=== PATIENT | male | born 1955 | race Caucasian/White ===

== ENCOUNTER → 2017-03-31 | Outpatient (CLI) | payer OTHER ==
[~2017-03-31] VITALS: Ht 177.8 cm; Wt 90.3 kg
[~2017-03-31] MED LIST: ALPR0.25 PO; ALPR1T PO; ASP81TEC PO; ATOR80TA PO; ATOR80TA2 PO; CATHETER FLUSH 10 ML SYR IV PRN; CLOP75TA PO; CLPD75T PO; ENLP2.5T PO; HYDR1TAB PO; METO-333 PO; METO25TA2 PO; OMEG1CAP51 PO; OMG1KC PO; OXYC-197 PO; PNT40TEC PO
== END ==
LOC: CARD 08:15
PROVIDERS: ATTEND Physician Assistant
DX: I25.10 Atherosclerotic heart disease of native coronary artery without angina pectoris (principal); E78.5 Hyperlipidemia, unspecified; I95.89 Other hypotension; I21.21 ST elevation (STEMI) myocardial infarction involving left circumflex coronary artery

== ENCOUNTER → 2017-04-02 | Outpatient (CLI) | payer OTHER ==
[2017-04-02 08:57] VITALS: BP 136/86
--- NOTE | 2017-04-03 06:49 | STRESS TEST ---
DATE OF SERVICE: 04/02/2017 EXERCISE MYOVIEW STRESS TEST REFERRING PHYSICIAN: None. Baseline heart rate is 65, baseline blood pressure 113/82. Baseline EKG is sinus rhythm with no ischemic changes. In summary, the patient was injected with 10.98 mCi of technetium-99 Myoview and the resting images were obtained. Then, the patient started exercising with a baseline heart rate, blood pressure and EKG mentioned above. At 1 minute 9, patient was injected with 29.4 mCi of technetium-99 Myoview. He was able to exercise for a total of 10 minutes on standard Viktor protocol, achieving maximum heart rate of 145 which is 90% of maximum expected heart rate. With peak exercise level, blood pressure was 164/86. EKG was showing minimal nondiagnostic changes. During recovery, heart rate and blood pressure returned to baseline. EKG returned to baseline. The resting and stress images were reviewed and compared in the short axis, horizontal long axis and vertical long axis views. Review of the images showed the resting and stress images were reviewed and compared in the short axis, horizontal long axis, and vertical long axis views. Review of the images showed diaphragmatic attenuation with typical male pattern. No significant ischemia or infarction. SSS is 1, SDS 1, TID value 0.76. On the gated images, the left ventricle appeared to be normal size with normal contractility. Calculated ejection fraction 56%. CONCLUSION: 1. Excellent exercise tolerance a total of 10 minutes on standard Viktor protocol, total of 11.7 METS achieving 90% of maximum expected heart rate. 2. Appropriate heart rate and blood pressure response to exercise returned to baseline during recovery. 3. Minimal nondiagnostic EKG changes with exercise returned to baseline during recovery. 4. Diaphragmatic attenuation with typical male pattern. No significant ischemia or infarction on SPECT images. 5. Normal left ventricular size with normal contractility. Calculated ejection fraction 56%. Job ID: [id number] DocumentID: [id number] Dictated Date: 04/02/2017 11:37:52 Cashier Receptionist Date: 04/02/2017 12:46:59 Dictated By: JHONY CHE MD
== END ==
LOC: CARD 07:28
PROVIDERS: ATTEND Physician Assistant
DX: I25.10 Atherosclerotic heart disease of native coronary artery without angina pectoris (principal); I21.21 ST elevation (STEMI) myocardial infarction involving left circumflex coronary artery; E78.2 Mixed hyperlipidemia; I95.89 Other hypotension
CPT/HCPCS: 78452; 93017

== ENCOUNTER → 2017-11-12 | Outpatient (CLI) | payer OTHER ==
[~2017-11-12] MED LIST changes: -CATHETER FLUSH 10 ML SYR IV PRN
[2017-11-12 09:52] LABS: ALANINE AMINOTRANSFERASE 12 U/L (0-55); ALBUMIN 4.2 GM/DL (3.2-4.5); ALKALINE PHOSPHATASE 70 U/L (40-136); BILIRUBIN,TOTAL 0.8 MG/DL (0.1-1.0); BUN/CREATININE RATIO 14; CALCIUM 9.1 MG/DL (8.5-10.1); CARBON DIOXIDE 24 MMOL/L (21-32); CHLORIDE 109 MMOL/L (98-107); CHOLESTEROL 118 MG/DL (< 200); CREATININE SERUM 1.18 MG/DL (0.60-1.30); GFR ESTIMATED > 60; GLUCOSE 95 MG/DL (70-105); HDL CHOLESTEROL 40 MG/DL (40-60); POTASSIUM 4.2 MMOL/L (3.6-5.0); SODIUM 140 MMOL/L (135-145); TOTAL PROTEIN 6.7 GM/DL (6.4-8.2); TRIGLYCERIDES 87 MG/DL (<150); VLDL CHOLESTEROL 17 MG/DL (5-40)
== END ==
LOC: LAB 09:07
PROVIDERS: ATTEND Internal Medicine Cardiovascular Disease
DX: I25.10 Atherosclerotic heart disease of native coronary artery without angina pectoris (principal); I50.9 Heart failure, unspecified; R09.89 Other specified symptoms and signs involving the circulatory and respiratory systems; R07.89 Other chest pain; R74.8 Abnormal levels of other serum enzymes; E78.2 Mixed hyperlipidemia
CPT/HCPCS: 36415; 80053; 80061

== ENCOUNTER → 2018-03-26 | Outpatient (CLI) | payer OTHER ==
[~2018-03-26] MED LIST changes: -OXYC-197 PO; +OXYC1TAB87 PO
[2018-03-26 15:41] LABS: BASOPHILS % (AUTO) 0 % (0-10); EOSINOPHILS # (AUTO) 0.2 10^3/uL (0.0-0.3); EOSINOPHILS % (AUTO) 3 % (0-10); HEMATOCRIT 45 % (40-54); LYMPHOCYTES # (AUTO) 1.4 X 10^3 (1.0-4.0); LYMPHOCYTES % (AUTO) 20 % (12-44); MEAN CORPUSCULAR HEMOGLOBIN 34 PG (25-34); MEAN CORPUSCULAR HGB CONC 36 G/DL (32-36); MEAN CORPUSCULAR VOLUME 94 FL (80-99); MEAN PLATELET VOLUME 10.8 FL (7.4-10.4); MONOCYTES # (AUTO) 0.7 X 10^3 (0.0-1.0); MONOCYTES % (AUTO) 10 % (0-12); NEUTROPHILS # (AUTO) 4.6 X 10^3 (1.8-7.8); NEUTROPHILS % (AUTO) 66 % (42-75); PLATELET COUNT 160 10^3/uL (130-400); RED BLOOD COUNT 4.78 10^6/uL (4.35-5.85); RED CELL DISTRIBUTION WIDTH 13.2 % (10.0-14.5); WHITE BLOOD COUNT 6.9 10^3/uL (4.3-11.0)
[2018-03-26 16:04] LABS: ALANINE AMINOTRANSFERASE 22 U/L (0-55); ALBUMIN 4.1 GM/DL (3.2-4.5); ALKALINE PHOSPHATASE 78 U/L (40-136); BILIRUBIN,TOTAL 0.5 MG/DL (0.1-1.0); BUN/CREATININE RATIO 11; CALCIUM 9.3 MG/DL (8.5-10.1); CARBON DIOXIDE 23 MMOL/L (21-32); CHLORIDE 111 MMOL/L (98-107); CREATININE SERUM 1.08 MG/DL (0.60-1.30); GFR ESTIMATED > 60; GLUCOSE 84 MG/DL (70-105); POTASSIUM 3.8 MMOL/L (3.6-5.0); SODIUM 141 MMOL/L (135-145); TOTAL PROTEIN 6.8 GM/DL (6.4-8.2)
== END ==
LOC: LAB 15:20
PROVIDERS: ATTEND Internal Medicine Cardiovascular Disease
DX: I25.10 Atherosclerotic heart disease of native coronary artery without angina pectoris (principal); R09.89 Other specified symptoms and signs involving the circulatory and respiratory systems; E78.2 Mixed hyperlipidemia; E66.9 Obesity, unspecified; I21.21 ST elevation (STEMI) myocardial infarction involving left circumflex coronary artery; F17.200 Nicotine dependence, unspecified, uncomplicated
CPT/HCPCS: 36415; 80053; 84443; 85025

== ENCOUNTER → 2018-04-22 | Outpatient (CLI) | payer OTHER | LOC: CARD 08:31 | PROVIDERS: ATTEND Internal Medicine Cardiovascular Disease | DX: I25.10 Atherosclerotic heart disease of native coronary artery without angina pectoris (principal); R09.89 Other specified symptoms and signs involving the circulatory and respiratory systems; E78.2 Mixed hyperlipidemia; I21.21 ST elevation (STEMI) myocardial infarction involving left circumflex coronary artery; F17.200 Nicotine dependence, unspecified, uncomplicated; E66.9 Obesity, unspecified; Z68.28 Body mass index [BMI] 28.0-28.9, adult | CPT/HCPCS: 93306 ==

== ENCOUNTER 2018-05-06 14:35 | Outpatient (CLI) | payer OTHER | END 2018-05-12 15:15 | disposition home or self-care (01) | LOC: SLEEP 14:35 | PROVIDERS: ATTEND Internal Medicine Cardiovascular Disease | DX: G47.33 Obstructive sleep apnea (adult) (pediatric) (principal); G47.10 Hypersomnia, unspecified; R06.83 Snoring; I11.0 Hypertensive heart disease with heart failure; R53.83 Other fatigue; F41.9 Anxiety disorder, unspecified; I95.9 Hypotension, unspecified; I65.23 Occlusion and stenosis of bilateral carotid arteries; I25.2 Old myocardial infarction; I25.10 Atherosclerotic heart disease of native coronary artery without angina pectoris; E78.2 Mixed hyperlipidemia; I50.32 Chronic diastolic (congestive) heart failure; Z87.891 Personal history of nicotine dependence; Z95.5 Presence of coronary angioplasty implant and graft ==

== ENCOUNTER 2018-08-11 20:00 | Outpatient (CLI) | payer OTHER | END 2018-08-12 06:15 | disposition home or self-care (01) | LOC: SLEEP 20:00 | PROVIDERS: ATTEND Nurse Practitioner | DX: G47.33 Obstructive sleep apnea (adult) (pediatric) (principal); R06.83 Snoring | CPT/HCPCS: 95811 ==

== ENCOUNTER 2019-02-03 13:39 | Emergency (ER) | payer OTHER ==
[~2019-02-03] VITALS: Ht 177.8 cm; Wt 98.0 kg
[2019-02-03 14:10] LABS: BASOPHILS % (AUTO) 1 % (0-10); EOSINOPHILS # (AUTO) 0.2 10^3/uL (0.0-0.3); EOSINOPHILS % (AUTO) 4 % (0-10); HEMATOCRIT 48 % (40-54); HEMOGLOBIN 16.6 G/DL (13.3-17.7); LYMPHOCYTES # (AUTO) 1.5 X 10^3 (1.0-4.0); LYMPHOCYTES % (AUTO) 22 % (12-44); MEAN CORPUSCULAR HEMOGLOBIN 34 PG (25-34); MEAN CORPUSCULAR HGB CONC 34 G/DL (32-36); MEAN CORPUSCULAR VOLUME 97 FL (80-99); MEAN PLATELET VOLUME 10.7 FL (7.4-10.4); MONOCYTES # (AUTO) 0.7 X 10^3 (0.0-1.0); MONOCYTES % (AUTO) 11 % (0-12); NEUTROPHILS # (AUTO) 4.1 X 10^3 (1.8-7.8); NEUTROPHILS % (AUTO) 63 % (42-75); PLATELET COUNT 181 10^3/uL (130-400); RED CELL DISTRIBUTION WIDTH 13.5 % (10.0-14.5); WHITE BLOOD COUNT 6.6 10^3/uL (4.3-11.0)
--- NOTE | 2019-02-03 14:11 | ED General ---
General Chief Complaint: General Problems/Pain Stated Complaint: EXHAUSTION Nursing Triage Note: AMBULATORY TO RM 5 WITH MULTIPLE COMPLAINTS. PT REPORTS FEELING IRRITABLE, EXTREME FATIGUE/EXHAUSTION, DIAPHORETIC, INSOMNIA. PT DENIES PAIN AT THIS TIME. PT REPORTS SYMPTOMS HAVE WORSENED TODAY AND WAS SENT TO ED FROM URGENT CARE. Nursing Sepsis Screen: No Definite Risk Source of Information: Patient Exam Limitations: No Limitations History of Present Illness Date Seen by Provider: Feb 03, 2019 Time Seen by Provider: 13:41 Initial Comments Here with fatigue and exhaustion as well as some increased work of breathing with activity. Does report sweating that it's intermittent. He is also irritable. All of these appear normal on over the last month. He went to the urgent care to get further workup and they sent him here due to the shortness of breath and sweating intermittently. Does have cardiac history including acute AR with stent placement. They're concerned about that so sent him here apparently. Denies chest pain. Takes meds as directed. Not currently having symptoms other than irritability. Does have history of anxiety. No history of depression but admits that he has had some depressive symptoms. Also has sleep apnea that does not appear to be well controlled with his CPAP as he is still waking up multiple times nightly. Timing/Duration: Changing Over Time, Other (one year) Severity: Mild, Moderate Associated Systoms: No Chest Pain, No Cough; Diaphoresis; No Fever/Chills; Sandrine ise; No Nausea/Vomiting; Shortness of Air; No Weakness Allergies and Home Medications Allergies Coded Allergies: No Known Drug Allergies (Unverified , 07/02/16) Home Medications Alprazolam 0.25 Mg Tablet, 0.25 MG PO PRN, (Reported) Aspirin 81 Mg Tabec, 81 MG PO DAILY, (Reported) Atorvastatin Calcium 80 Mg Tablet, 80 MG PO HS, (Reported) Clopidogrel Bisulfate 75 Mg Tablet, 75 MG PO DAILY, (Reported) Enalapril Maleate 2.5 Mg Tablet, 2.5 MG PO BID, (Reported) Metoprolol Tartrate 25 Mg Tablet, 12.5 MG PO BID, (Reported) PATIENT TAKES 1/2 TABLET OF 25 MG TABLET TWICE A DAY [place]-3 Fatty Acids/Fish Oil 1 Each Capsule, 3,000 MG PO DAILY, (Reported) Oxycodone HCl/Acetaminophen 1 Each Tablet, 1 EACH PO Q4H PRN for PAIN Prescribed by: NATALIA BATEMAN on 07/05/16 1459 Pantoprazole Sodium 40 Mg Tablet., 40 MG PO DAILY, (Reported) Patient Home Medication List Home Medication List Reviewed: Yes Review of Systems Review of Systems Constitutional: see HPI; No chills, No fever Respiratory: No cough; dyspnea on exertion; No wheezing Cardiovascular: see HPI; No edema, No palpitations Gastrointestinal: no symptoms reported Genitourinary: no symptoms reported Musculoskeletal: no symptoms reported Skin: no symptoms reported Psychiatric/Neurological: See HPI, Anxiety, Depressed All Other Systems Reviewed Negative Unless Noted: Yes Past Nwpnlae-Nudgyj-Ksrjhj Hx Past Med/Social Hx: Reviewed Nursing Past Med/Soc Hx Patient Social History Alcohol Use: Occasionally Uses Recreational Drug Use: No Smoking Status: Current Everyday Smoker Type Used: Cigarettes Former Smoker, Quit: Oct 05, 2013 2nd Hand Smoke Exposure: Yes Recent Foreign Travel: No Contact w/Someone Who Travel: No Recent Infectious Disease Expo: No Recent Hopitalizations: No Physical Abuse: No Sexual Abuse: No Seasonal Allergies Seasonal Allergies: No Past Medical History Surgeries: Yes (INGUINAL Hernia Surgery, CARDIAC STENTS) Respiratory: No Cardiac: Yes Heart Attack, High Cholesterol, Hypertension Neurological: Yes Headaches /Migraines Reproductive Disorders: No Sexually Transmitted Disease: No HIV/AIDS: No Gastrointestinal: Yes (HX HEP A YEARS AGO) Hepatitis Musculoskeletal: No Endocrine: No Loss of Vision: Bilateral Hearing Impairment: Denies Cancer: No Psychosocial: Yes (ONLY HOSPITAL RELATED) Anxiety Integumentary: No Blood Disorders: No Adverse Reaction/Blood Tranf: No Family Medical History Reviewed Nursing Family Hx Physical Exam Vital Signs Vital Signs - First Documented 02/03/19 13:39 Temp 98.0 Pulse 74 Resp 20 B/P (MAP) 141/90 (107) Pulse Ox 97 O2 Delivery Room Air Capillary Refill : Less Than 3 Seconds Height, Weight, BMI Height: 5'10.00" Weight: 216lbs. 0.0oz. [id number]; 28.6 BMI Method:Stated General Appearance: No Apparent Distress, WD/WN HEENT: PERRL/EOMI, Pharynx Normal Neck: Non Tender, Supple Respiratory: Lungs Clear, Normal Breath Sounds Cardiovascular: Regular Rate, Rhythm, No Murmur Gastrointestinal: Non Tender, Soft Back: Normal Inspection, No CVA Tenderness, No Vertebral Tenderness Extremity: Normal Inspection, Normal Range of Motion, Non Tender, No Calf Tenderness Neurologic/Psychiatric: Alert, Oriented x3 Skin: Normal Color, Warm/Dry Progress/Results/Core Measures Suspected Sepsis Recent Fever Within 48 Hours: No Infection Criteria Present: None New/Unexplained Altered Menta: No Sepsis Screen: No Definite Risk SIRS Temperature:98.0 Pulse: 74 Respiratory Rate: 20 Laboratory Tests 02/03/19 13:48: White Blood Count 6.6 Blood Pressure 141 /90 Mean: 107 Laboratory Tests 02/03/19 13:48: Creatinine 1.38H, Platelet Count 181, Total Bilirubin 0.5 Results/Orders Lab Results Laboratory Tests Test 02/03/19 13:48 Range/Units White Blood Count 6.6 4.3-11.0 10^3/uL Red Blood Count 4.96 4.35-5.85 10^6/uL Hemoglobin 16.6 13.3-17.7 G/DL Hematocrit 48 40-54 % Mean Corpuscular Volume 97 80-99 FL Mean Corpuscular Hemoglobin 34 25-34 PG Mean Corpuscular Hemoglobin Concent 34 32-36 G/DL Red Cell Distribution Width 13.5 10.0-14.5 % Platelet Count 181 130-400 10^3/uL Mean Platelet Volume 10.7 H 7.4-10.4 FL Neutrophils (%) (Auto) 63 42-75 % Lymphocytes (%) (Auto) 22 12-44 % Monocytes (%) (Auto) 11 0-12 % Eosinophils (%) (Auto) 4 0-10 % Basophils (%) (Auto) 1 0-10 % Neutrophils # (Auto) 4.1 1.8-7.8 X 10^3 Lymphocytes # (Auto) 1.5 1.0-4.0 X 10^3 Monocytes # (Auto) 0.7 0.0-1.0 X 10^3 Eosinophils # (Auto) 0.2 0.0-0.3 10^3/uL Basophils # (Auto) 0.0 0.0-0.1 10^3/uL D-Dimer 0.96 H 0.00-0.49 UG/ML Sodium Level 142 135-145 MMOL/L Potassium Level 4.3 3.6-5.0 MMOL/L Chloride Level 110 H 98-107 MMOL/L Carbon Dioxide Level 22 21-32 MMOL/L Anion Gap 10 5-14 MMOL/L Blood Urea Nitrogen 12 7-18 MG/DL Creatinine 1.38 H 0.60-1.30 MG/DL Estimat Glomerular Filtration Rate 52 BUN/Creatinine Ratio 9 Glucose Level 88 70-105 MG/DL Calcium Level 9.9 8.5-10.1 MG/DL Corrected Calcium 9.7 8.5-10.1 MG/DL Magnesium Level 2.1 1.8-2.4 MG/DL Total Bilirubin 0.5 0.1-1.0 MG/DL Aspartate Amino Transf (AST/SGOT) 16 5-34 U/L Alanine Aminotransferase (ALT/SGPT) 15 0-55 U/L Alkaline Phosphatase 95 40-136 U/L Troponin I < 0.028 <0.028 NG/ML C-Reactive Protein High Sensitivity 0.13 0.00-0.50 MG/DL Total Protein 7.2 6.4-8.2 GM/DL Albumin 4.2 3.2-4.5 GM/DL Thyroid Stimulating Hormone (TSH) 1.54 0.35-4.94 UIU/ML My Orders Orders - MICHELLE ODEN MD Ed Iv/Invasive Line Start (02/03/19 14:02) Ekg Tracing (02/03/19 14:02) Monitor-Rhythm Ecg Trace Only (02/03/19 14:02) Chest Pa/Lat (2 View) (02/03/19 14:02) Cbc With Automated Diff (02/03/19 14:02) Comprehensive Metabolic Panel (02/03/19 14:02) Hs C Reactive Protein (02/03/19 14:02) Fibrin Degradation Products (02/03/19 14:02) Magnesium (02/03/19 14:02) Thyroid Stimulating Hormone (02/03/19 14:02) Troponin I (02/03/19 14:02) Ed Iv/Invasive Line Start (02/03/19 14:46) Ns Iv 1000 Ml (Sodium Chloride 0.9%) (02/03/19 14:46) Ct Angio Chest W (02/03/19 14:46) Lorazepam Injection (Ativan Injection) (02/03/19 15:00) Iohexol Injection (Omnipaque 350 Mg/Ml 1 (02/03/19 16:00) Received Contrast (Hold Metformin- Contr (02/03/19 16:00) Sodium Chloride Flush (Catheter Flush Sy (02/03/19 16:00) Ns (Ivpb) (Sodium Chloride 0.9% Ivpb Bag (02/03/19 16:00) Hepatitis Panel Acute (02/03/19 16:58) Tick Panel With Lyme Eia (02/03/19 16:58) Medications Given in ED Current Medications Medications Dose Ordered Sig/Thien Route Start Time Stop Time Status Last Admin Dose Admin Lorazepam 0.5 mg ONCE ONCE IVP 02/03/19 15:00 02/03/19 15:01 DC 02/03/19 14:57 0.5 MG Vital Signs/I&O 02/03/19 13:39 Temp 98.0 Pulse 74 Resp 20 B/P (MAP) 141/90 (107) Pulse Ox 97 O2 Delivery Room Air Capillary Refill : Less Than 3 Seconds Blood Pressure Mean: 107 Progress Note : Progress Note Seen and evaluated. IV, labs, EKG and chest x-ray ordered. Monitor patient. D- dimer was elevated . We will get CT angiogram of the chest. 1 L of normal saline IV bolus ordered. Ativan 0.5 mg IV for anxiety. Monitor patient. 1635: I did discuss case with nurse practitioner at [facility] where he is wanting to establish care. We did discuss my concerns related to depression and anxiety and they will assist with managing that. Pending final results of CT. 1703: CT does not show any concerning findings for pulmonary embolism. Patient has concerns about hepatitis and tick born disease. He was told he had hepatitis in the past. We will go ahead and get hepatitis panel as well as take panel. I will send a copy of the chart to the clinic of Dr. Ding/Yoni. Discharged home with return precautions. Patient verbalize understanding instructions and agreement with plan. ECG Initial ECG Impression Date: Feb 03, 2019 Initial ECG Impression Time: 13:41 Initial ECG Rate: 75 Initial ECG Rhythm: Normal Sinus Initial ECG Comparisson: Unchanged Comment Sinus rhythm with normal axis. No evidence of ST elevation AR. Similar to previous of 18 Nov 2013. Interpreted by me. Diagnostic Imaging Diagonstic Imaging: Xray Plain Films/CT/US/NM/MRI: chest Comments NAME: KRISTINE PETIT Noah MED REC#: [id number] PT STATUS: REG ER : 1955 PHYSICIAN: MICHELLE ODEN MD ADMIT DATE: 02/03/19/ER Draft Date of Exam:02/03/19 CHEST PA/LAT (2 VIEW) INDICATION: Extreme fatigue, diaphoresis, insomnia. TIME OF EXAM: 02:24 p.m. COMPARISON: Correlation is made with prior study 11/17/2013. FINDINGS: The heart size is normal. The pulmonary vascularity is unremarkable. The lungs are clear. No infiltrate, effusion or pneumothorax is detected. IMPRESSION: No acute cardiopulmonary process is detected. Dictated on workstation # [id number] Dict: 02/03/19 1433 Trans: 02/03/19 143 [facility] [id number] Interpreted by: WALKER VARGHESE MD Electronically signed by: Sarah Imaging: CT Plain Films/CT/US/NM/MRI: chest Comments NAME: KRISTINE PETIT [facility] REC#: [id number] PT STATUS: REG ER : 1955 PHYSICIAN: MICHELLE ODEN MD ADMIT DATE: 02/03/19/ER Signed Date of Exam:02/03/19 CT ANGIO CHEST W PROCEDURE: CT angiography of the chest with contrast. TECHNIQUE: Multiple contiguous axial images were obtained through the chest after uneventful bolus administration of intravenous contrast. 3D reconstructed CTA MIP acquisitions were also performed. Auto Exposure Controls were utilized during the CT exam to meet ALARA standards for radiation dose reduction. INDICATION: Exhaustion. FINDINGS: No comparison available. There is no pulmonary embolism. Heart size is normal. There is a mild ascending aortic aneurysm measuring 4.2 cm. No axillary, supraclavicular, or mediastinal lymphadenopathy. There is moderate centrilobular and paraseptal emphysema. No edema or pneumonia. No pleural effusion or pneumothorax. No suspicious pulmonary nodules or masses. Limited views of the upper abdomen are unremarkable. There are no suspicious osseous lesions. IMPRESSION: 1. No pulmonary embolism. 2. Mild ascending aortic aneurysm measuring 4.2 cm. Dictated by: Dictated on workstation # [id number] Dict: 02/03/19 1607 Trans: 02/03/19 1657 [id number] Interpreted by: COLLIN GONZALES MD Electronically signed by: COLLIN GONZALES MD 02/03/19 5319 Reviewed: Reviewed by Me Departure Impression Primary Impression: Emphysema of lung Qualified Codes: J43.2 - Centrilobular emphysema Additional Impression: Fatigue Qualified Codes: R53.83 - Other fatigue Disposition: 01 HOME, SELF-CARE Condition: Improved Departure-Patient Inst. Decision time for Depature: 17:06 Referrals: NO,LOCAL PHYSICIAN (PCP/Family) Primary Care Physician Patient Instructions: Fatigue (DC), COPD Including Emphysema (DC) Add. Discharge Instructions: All discharge instructions reviewed with patient and/or family. Voiced understanding. Is very important that he follow back up with the clinic for recheck and further evaluation. The fatigue may be related to anxiety and depression. The shortness of breath may be related to emphysema. Both of these are best cared for with your primary care as well as to establish a regimen that is most effective for you. Your hepatitis panel and tick panel blood tests are pending and will result in for 5 days. The clinic can follow this as well. Return for worse pain, fever, vomiting, weakness, breathing problems or other concerns as needed. Copy Copies To 1: NICOLE DING MD, TIMOTHY D MD Feb 03, 2019 14:10
[2019-02-03 14:21] LABS: ALANINE AMINOTRANSFERASE 15 U/L (0-55); ALBUMIN 4.2 GM/DL (3.2-4.5); ALKALINE PHOSPHATASE 95 U/L (40-136); BILIRUBIN,TOTAL 0.5 MG/DL (0.1-1.0); BUN/CREATININE RATIO 9; CALCIUM 9.9 MG/DL (8.5-10.1); CARBON DIOXIDE 22 MMOL/L (21-32); CHLORIDE 110 MMOL/L (98-107); CREATININE SERUM 1.38 MG/DL (0.60-1.30); GFR ESTIMATED 52; GLUCOSE 88 MG/DL (70-105); MAGNESIUM 2.1 MG/DL (1.8-2.4); POTASSIUM 4.3 MMOL/L (3.6-5.0); SODIUM 142 MMOL/L (135-145); TOTAL PROTEIN 7.2 GM/DL (6.4-8.2)
--- NOTE | 2019-02-03 14:36 | Diagnostic Imaging Report ---
INDICATION: Extreme fatigue, diaphoresis, insomnia. TIME OF EXAM: 02:24 p.m. COMPARISON: Correlation is made with prior study 11/17/2013. FINDINGS: The heart size is normal. The pulmonary vascularity is unremarkable. The lungs are clear. No infiltrate, effusion or pneumothorax is detected. IMPRESSION: No acute cardiopulmonary process is detected. Dictated by: Dictated on workstation # [id number]
[2019-02-03] MEDS ORDERED: NS IV 1000 ML 1,000 ML IV SCH (14:46)
[2019-02-03] MEDS ORDERED: LORazepam INJ 2 MG/ML (ATIVAN) VIAL IVP ONE (15:00)
[2019-02-03] MEDS ORDERED: HOLD METFORMIN - RECEIVED CONTRAST 20 ML VIAL IV SCH (16:00)
[2019-02-03] MEDS ORDERED: IOHEXOL 350 MG/ML 100 ML (OMNIPAQUE 350) VIAL IV ONE (16:00)
[2019-02-03] MEDS ORDERED: CATHETER FLUSH 10 ML SYR IV PRN (16:00)
[2019-02-03] MEDS ORDERED: NS 100 ML (IVPB) BAG IV ONE (16:00)
--- NOTE | 2019-02-03 17:00 | Diagnostic Imaging Report ---
PROCEDURE: CT angiography of the chest with contrast. TECHNIQUE: Multiple contiguous axial images were obtained through the chest after uneventful bolus administration of intravenous contrast. 3D reconstructed CTA MIP acquisitions were also performed. Auto Exposure Controls were utilized during the CT exam to meet ALARA standards for radiation dose reduction. INDICATION: Exhaustion. FINDINGS: No comparison available. There is no pulmonary embolism. Heart size is normal. There is a mild ascending aortic aneurysm measuring 4.2 cm. No axillary, supraclavicular, or mediastinal lymphadenopathy. There is moderate centrilobular and paraseptal emphysema. No edema or pneumonia. No pleural effusion or pneumothorax. No suspicious pulmonary nodules or masses. Limited views of the upper abdomen are unremarkable. There are no suspicious osseous lesions. IMPRESSION: 1. No pulmonary embolism. 2. Mild ascending aortic aneurysm measuring 4.2 cm. Dictated by: Dictated on workstation # [id number]
[2019-02-03 17:21] VITALS: BP 112/89
[2019-02-04 23:22] LABS: HEPATITIS C ANTIBODY C Non-Reactive (Non-Reactive)
== END 2019-02-03 17:21 | disposition home or self-care (01) ==
LOC: EDUNIT# 13:39 → ER 13:41
DX: J43.9 Emphysema, unspecified (principal); I10 Essential (primary) hypertension; I25.2 Old myocardial infarction; E78.00 Pure hypercholesterolemia, unspecified; G43.909 Migraine, unspecified, not intractable, without status migrainosus; F41.9 Anxiety disorder, unspecified; G47.30 Sleep apnea, unspecified; F17.210 Nicotine dependence, cigarettes, uncomplicated; Z79.82 Long term (current) use of aspirin; Z79.02 Long term (current) use of antithrombotics/antiplatelets; Z99.89 Dependence on other enabling machines and devices; Z95.5 Presence of coronary angioplasty implant and graft
CPT/HCPCS: 36415; 71046; 71275; 80053; 80074; 83735; 84443; 84484; 85025; 85379; 86141; 86618; 86666; 86668; 86757; 93005; 93041; 96361; 96374

== ENCOUNTER 2019-03-18 20:54 | Outpatient (CLI) | payer OTHER | END 2019-03-19 06:45 | disposition home or self-care (01) | LOC: SLEEP 20:54 | PROVIDERS: ATTEND Nurse Practitioner | DX: G47.33 Obstructive sleep apnea (adult) (pediatric) (principal); G47.31 Primary central sleep apnea; G47.10 Hypersomnia, unspecified; I10 Essential (primary) hypertension; G47.61 Periodic limb movement disorder | CPT/HCPCS: 95811 ==

== ENCOUNTER → 2019-03-23 | Outpatient (CLI) | payer OTHER ==
[~2019-03-23] MED LIST changes: +RT-ALBUTEROL SULF 2.5 MG/3 ML PRE-MIX VIAL INH ONE
== END ==
LOC: RT 09:40
PROVIDERS: ATTEND Pediatrics
DX: R53.83 Other fatigue (principal)
CPT/HCPCS: 94060; 94640; 94726; 94729

== ENCOUNTER → 2019-09-22 | Outpatient (CLI) | payer OTHER ==
[~2019-09-22] VITALS: Ht 178 cm; Wt 103.0 kg
[~2019-09-22] MED LIST changes: +CATHETER FLUSH 10 ML SYR IV PRN; -RT-ALBUTEROL SULF 2.5 MG/3 ML PRE-MIX VIAL INH ONE
[2019-09-22 08:17] LABS: BILIRUBIN,TOTAL 0.8 MG/DL (0.1-1.0); CREATININE SERUM 1.25 MG/DL (0.60-1.30); POTASSIUM 3.9 MMOL/L (3.6-5.0)
--- NOTE | 2019-09-22 14:56 | STRESS TEST ---
DATE OF SERVICE: 09/22/2019 EXERCISE MYOVIEW STRESS TEST REFERRING PHYSICIAN: Dr. Rick Vallejo. Baseline heart rate is 61, baseline blood pressure is 127/94. Baseline EKG is sinus rhythm with no ischemic changes. In summary, the patient started exercising with a baseline heart rate, blood pressure and EKG mentioned above. He was able to exercise for a total of 8 minutes 50 seconds on standard Viktor protocol. With peak exercise level, EKG was showing minimal nondiagnostic changes. During recovery, heart rate and blood pressure returned to baseline. Occasional PVC was noted during recovery. Peak heart rate was 143, blood pressure 204/91. The patient was injected resting and stress dose of Lexiscan. The images were acquired and reviewed, there is typical male pattern, decreased uptake at the inferior wall with subtle reversibility. SSS is 4, SDS 3, TID value 0.83. On the gated images, the left ventricle appeared to be normal size with normal contractility. Calculated ejection fraction 60%. CONCLUSION: 1. Good exercise tolerance, a total of 8 minutes 50 seconds on standard Viktor protocol, total of 10.3 METS achieving 90% of maximum expected heart rate. 2. Hypertensive response to exercise with peak blood pressure 204/91, returned to baseline during recovery. 3. Occasional PVCs noted during recovery. 4. No ischemia or infarction on SPECT images, typical male pattern with diaphragmatic attenuation. 5. Normal left ventricular size with normal contractility. Calculated ejection fraction 50%. Job ID: [id number] DocumentID: [id number] Dictated Date: 09/22/2019 14:21:58 Director Sanitation Bureau Date: 09/22/2019 14:55:57 Dictated By: JHONY CHE MD
== END ==
LOC: CARD 07:14
PROVIDERS: ATTEND Internal Medicine Cardiovascular Disease
DX: I25.10 Atherosclerotic heart disease of native coronary artery without angina pectoris (principal); E78.2 Mixed hyperlipidemia; R09.89 Other specified symptoms and signs involving the circulatory and respiratory systems; I08.1 Rheumatic disorders of both mitral and tricuspid valves
CPT/HCPCS: 36415; 78452; 80053; 80061; 93017

== ENCOUNTER → 2021-07-16 | Outpatient (CLI) | payer OTHER ==
[~2021-07-16] MED LIST changes: -CATHETER FLUSH 10 ML SYR IV PRN
[2021-07-16 11:02] LABS: BASOPHILS # (AUTO) 0.1 10^3/uL (0.0-0.1); BASOPHILS % (AUTO) 1 % (0-10); EOSINOPHILS # (AUTO) 0.2 10^3/uL (0.0-0.3); EOSINOPHILS % (AUTO) 2 % (0-10); HEMATOCRIT 48 % (40-54); HEMOGLOBIN 16.6 g/dL (13.3-17.7); LYMPHOCYTES # (AUTO) 1.6 10^3/uL (1.0-4.0); LYMPHOCYTES % (AUTO) 16 % (12-44); MEAN CORPUSCULAR HEMOGLOBIN 34 pg (25-34); MEAN CORPUSCULAR HGB CONC 35 g/dL (32-36); MEAN CORPUSCULAR VOLUME 98 fL (80-99); MEAN PLATELET VOLUME 10.4 fL (9.0-12.2); MONOCYTES # (AUTO) 0.9 10^3/uL (0.0-1.0); MONOCYTES % (AUTO) 9 % (0-12); NEUTROPHILS # (AUTO) 6.9 10^3/uL (1.8-7.8); NEUTROPHILS % (AUTO) 72 % (42-75); PLATELET COUNT 221 10^3/uL (130-400); WHITE BLOOD COUNT 9.6 10^3/uL (4.3-11.0)
[2021-07-16 11:31] LABS: BILIRUBIN,TOTAL 0.5 MG/DL (0.1-1.0); CALCIUM 9.3 MG/DL (8.5-10.1); CREATININE SERUM 0.97 MG/DL (0.60-1.30); POTASSIUM 4.1 MMOL/L (3.6-5.0); TOTAL PROTEIN 6.9 GM/DL (6.4-8.2)
[2021-07-16 11:52] LABS: FREE T4 (FREE THYROXINE) 0.93 NG/DL (0.70-1.48)
== END ==
LOC: LAB 10:03
PROVIDERS: ATTEND Internal Medicine
DX: Z00.00 Encounter for general adult medical examination without abnormal findings (principal); Z13.6 Encounter for screening for cardiovascular disorders; E03.9 Hypothyroidism, unspecified
CPT/HCPCS: 36415; 80053; 80061; 84439; 84443; 85025

== ENCOUNTER → 2022-01-11 | Outpatient (CLI) | payer OTHER ==
[2022-01-11 10:13] LABS: BILIRUBIN,TOTAL 0.5 MG/DL (0.1-1.0); CALCIUM 9.1 MG/DL (8.5-10.1); CREATININE SERUM 1.14 MG/DL (0.60-1.30); POTASSIUM 3.7 MMOL/L (3.6-5.0); TOTAL PROTEIN 6.6 GM/DL (6.4-8.2)
[2022-01-11 10:37] LABS: FREE T4 (FREE THYROXINE) 0.99 NG/DL (0.70-1.48)
== END ==
LOC: LAB 09:27
PROVIDERS: ATTEND Internal Medicine
DX: Z13.6 Encounter for screening for cardiovascular disorders (principal); E03.9 Hypothyroidism, unspecified; I10 Essential (primary) hypertension
CPT/HCPCS: 36415; 80053; 82465; 84439; 84443; 84478

== ENCOUNTER 2022-05-15 08:52 | Outpatient (CLI) | payer OTHER ==
[~2022-05-15] VITALS: Ht 177.8 cm; Wt 93.6 kg
[2022-05-15] MEDS ORDERED: MELO10CA3 PO (09:47)
[2022-05-15] MEDS ORDERED: ATOR20TA66 PO (09:47)
[2022-05-15] MEDS ORDERED: AMT10T PO (09:47)
[2022-05-15] MEDS ORDERED: ENLP2.5T PO (09:47)
[2022-05-15] MEDS ORDERED: ALPR0.254 PO (09:47)
[2022-05-15] MEDS ORDERED: METO-333 PO (09:47)
[2022-05-15] MEDS ORDERED: OMEP20CA18 PO (09:47)
[2022-05-15] MEDS ORDERED: ASPI-999 PO (09:47)
[2022-05-20] MEDS ORDERED: SUCR1TAB36 PO (11:06)
== END 2022-05-15 09:49 | disposition home or self-care (01) ==
LOC: PREOP 08:52
PROVIDERS: ATTEND Surgery
DX: Z01.818 Encounter for other preprocedural examination (principal)

== ENCOUNTER 2022-05-20 09:05 | Day surgery (SDC) | payer OTHER, MEDICARE ==
[~2022-05-20] VITALS: Ht 177.8 cm; Wt 93.6 kg
[~2022-05-20 09:05] MED LIST changes: +ALPR0.254 PO; +AMT10T PO; +ASPI-999 PO; +ATOR20TA66 PO; +MELO10CA3 PO; +OMEP20CA18 PO
[2022-05-20] MEDS ORDERED: LACTATED RINGERS 1,000 ML IV STA (09:11)
[2022-05-20] MEDS ORDERED: HURRICAINE EXT TUBE (BENZOCAINE) ONE (09:12)
[2022-05-20] MEDS ORDERED: LACTATED RINGERS 1,000 ML IV ONE (09:12)
[2022-05-20] MEDS ORDERED: HURRICAINE EXT TUBE (BENZOCAINE) XX PRN (09:15)
--- NOTE | 2022-05-20 09:21 | Progress Note-Pre Operative ---
Pre-Operative Progress Note Date of Available H&P: May 14, 2022 Date H&P Reviewed: May 20, 2022 Time H&P Reviewed: 09:19 History & Physical: H&P Reviewed, Patient Examed, No changes noted Pre-Operative Diagnosis: Dysphagia, Screening ROBERT NOYOLA DO May 20, 2022 09:21
[2022-05-20 09:30] VITALS: BP 133/95
[2022-05-20] MEDS ORDERED: MIDAZOLAM 2 MG/2 ML (VERSED) VIAL ONE (10:08)
[2022-05-20] MEDS ORDERED: PROPOFOL INJECTION 50 ML IV ONE (10:08)
[2022-05-20 10:52] VITALS: BP 115/81
--- NOTE | 2022-05-20 10:55 | Anesthesia-General Post-Op ---
MAC Patient Condition Mental Status/LOC: Same as Preop Cardiovascular: Satisfactory Nausea/Vomiting: Absent Respiratory: Satisfactory Pain: Controlled Complications: Absent Post Op Complications Complications None Follow Up Care/Instructions Patient Instructions None needed. Anesthesiology Discharge Order Discharge Order Patient is doing well, no complaints, stable vital signs, no apparent adverse anesthesia problems. No complications reported per nursing. KEVEN CIFUENTES CRNA May 20, 2022 10:55
[2022-05-20 10:57] VITALS: BP 132/88
[2022-05-20 11:05] VITALS: BP 132/88
--- NOTE | 2022-05-20 11:05 | Progress Note-Post Operative ---
Post-Operative Progess Note Surgeon (s)/Jewel Sorter (s) Surgeon ROBERT NOYOLA DO Jewel Sorter: Renetta Paiz, MSIII Pre-Operative Diagnosis Dysphagia, Screening Post-Operative Diagnosis Esophageal stricture Montejo's esophagus hiatal hernia gastritis Polyp diverticula int hemorrhoids Procedure & Operative Findings Date of Procedure 05/20/22 Procedure Performed/Findings EGD with biopsy Colonoscopy with snare polypectomy PROCEDURE NOTE: After informed consent was obtained, the patient was brought to the endoscopy suite, placed in bed in left lateral decubitus position. He was administered IV sedation by the EXTRA HAND who then monitored vitals the entire time, heart rate, blood pressure and pulse ox and the scope was inserted down the mouth through the esophagus into the stomach. On the way down, noted some mild esophagitis, took a picture and then met some resistance as I was trying to push into the stomach. It popped in and pt immediately started coughing, pushed past the antrum and into the duodenum. Duodenum looked looked mildly inflamed and I saw a number of polyps. Pulled back and did a biopsy of the antrum, then retroflexed the scope and saw a hiatal hernia, took a picture of this. Then pulled the scope into the GE junction, took another picture of the hiatal hernia and then did a biopsy of the GE junction and two biopsies of the lower esophagus. It appeared inflamed and strictured, really didn't see a mass. Pushed the scope back into the stomach, suctioned all the air out of the stomach. At this point pulled the scope up the esophagus and out of the mouth. Switched camera, switched gloves, went down below and started the colonoscopy. Pushed all the way into about 140 cm to get all the way to cecum; on the way in noted diverticula. Once in the cecum took a picture of the appendiceal orifice, noted the ileocecal valve and then slowly withdrew the scope. Insufflating to look circumferentially at the plascencia starting in the cecum, up the ascending colon and found a polyp. Did a snare polypectomy to remove the polyp and then continued to the hepatic flexure. Then down the transverse colon to the splenic flexure, into the descending colon and down into the sigmoid. Found a large polyp here and removed it at the base of the stalk with snare polypectomy. Finally into the rectum, retroflexed in the rectal vault, saw some minimal internal hemorrhoids and took a picture of them. The patient tolerated the procedure and he recovered in the endoscopy suite. Recommended for repeat colonoscopy in 1 year because of the size of the polyp. Anesthesia Type IV sedation by EXTRA HAND Estimated Blood Loss Estimated blood loss (mL): scant Specimens/Packing Specimens Removed antral bx GE jxn bx lower esophagus bx asc colon polyp sigmoid polyp ROBERT NOYOLA DO May 20, 2022 11:05
[2022-05-20] MEDS ORDERED: SUCR1TAB36 PO (11:06)
--- NOTE | 2022-05-20 11:07 | Endoscopy Discharge Instruct ---
Endo Procedure/Findings Findings 1.: Gastritis, Montejo's Esophagus 2.: Hiatal Hernia, Other Findings (Esophageal stricture) 3.: Polyp 4.: Diverticulosis, Internal Hemorrhoids Discharge Instructions - Activity: You might feel a little sleepy until tomorrow. This is due to the medicine you received to relax you. Until tomorrow, you should: NOT drive a car, operate machinery or power tools. NOT drink any alcoholic beverages. NOT make any important decisions or sign importortant papers. Do not return to work until tomorrow, unless otherwise instructed. Resume previous activities tomorrow. Diet: Start by taking liquids. If you tolerate liquids, advance to solid food. 1.: Colonoscopy in 1 year 2.: EGD in 6-8 weeks Notify Physician - If you experience excessive bleeding, unusual abdominal pain, fever, or chest pain, contact your doctor immediately. ROBERT NOYOLA DO May 20, 2022 11:07
[2022-05-20 11:35] VITALS: BP 119/87
[2022-05-20 11:45] VITALS: BP 119/87
--- NOTE | 2022-05-20 13:12 | Diagnostic Imaging Report ---
INDICATION: Cough. COMPARISON: 11/17/2013. FINDINGS: The heart size, mediastinal configuration, and pulmonary vascularity are within normal limits. There is no pleural effusion, pneumothorax, or pneumonia. The osseous structures are unremarkable. IMPRESSION: No acute cardiopulmonary abnormality. Dictated by: Dictated on workstation # [id number]
== END 2022-05-20 11:50 | disposition home or self-care (01) ==
LOC: ENDO 09:05
PROVIDERS: ATTEND Surgery
DX: Z12.11 Encounter for screening for malignant neoplasm of colon (principal); C16.0 Malignant neoplasm of cardia; K22.2 Esophageal obstruction; K22.70 Barrett's esophagus without dysplasia; K44.9 Diaphragmatic hernia without obstruction or gangrene; K57.30 Diverticulosis of large intestine without perforation or abscess without bleeding; K64.8 Other hemorrhoids; K29.50 Unspecified chronic gastritis without bleeding; D12.2 Benign neoplasm of ascending colon; D12.5 Benign neoplasm of sigmoid colon; Z87.891 Personal history of nicotine dependence; E66.9 Obesity, unspecified; Z68.29 Body mass index [BMI] 29.0-29.9, adult
CPT/HCPCS: 71045

== ENCOUNTER 2022-05-28 15:16 | Outpatient (RCR) | payer OTHER, MEDICARE ==
[~2022-05-28 15:16] MED LIST changes: +SUCR1TAB36 PO
[2022-05-28 15:58] LABS: BASOPHILS # (AUTO) 0.1 10^3/uL (0.0-0.1); BASOPHILS % (AUTO) 1 % (0-10); EOSINOPHILS # (AUTO) 1.4 10^3/uL (0.0-0.3); EOSINOPHILS % (AUTO) 7 % (0-10); HEMATOCRIT 46 % (40-54); HEMOGLOBIN 15.8 g/dL (13.3-17.7); LYMPHOCYTES # (AUTO) 1.5 10^3/uL (1.0-4.0); LYMPHOCYTES % (AUTO) 8 % (12-44); MEAN CORPUSCULAR HEMOGLOBIN 35 pg (25-34); MEAN CORPUSCULAR HGB CONC 35 g/dL (32-36); MEAN CORPUSCULAR VOLUME 100 fL (80-99); MEAN PLATELET VOLUME 10.8 fL (9.0-12.2); MONOCYTES # (AUTO) 1.2 10^3/uL (0.0-1.0); MONOCYTES % (AUTO) 6 % (0-12); NEUTROPHILS # (AUTO) 15.2 10^3/uL (1.8-7.8); NEUTROPHILS % (AUTO) 78 % (42-75); PLATELET COUNT 239 10^3/uL (130-400); WHITE BLOOD COUNT 19.5 10^3/uL (4.3-11.0)
[2022-05-28 16:21] LABS: BILIRUBIN,TOTAL 0.4 MG/DL (0.1-1.0); CALCIUM 9.7 MG/DL (8.5-10.1); CREATININE SERUM 0.98 MG/DL (0.60-1.30); POTASSIUM 3.8 MMOL/L (3.6-5.0); TOTAL PROTEIN 7.3 GM/DL (6.4-8.2)
== END 2022-06-05 | disposition home or self-care (01) ==
LOC: ONC 15:16
PROVIDERS: ATTEND Internal Medicine Hematology & Oncology
DX: C16.0 Malignant neoplasm of cardia (principal); I50.22 Chronic systolic (congestive) heart failure; I25.10 Atherosclerotic heart disease of native coronary artery without angina pectoris; E78.2 Mixed hyperlipidemia; E66.9 Obesity, unspecified
CPT/HCPCS: 80053; 85025; G0463; 36415; 99204

== ENCOUNTER → 2022-06-05 | Outpatient (CLI) | payer OTHER, MEDICARE ==
[~2022-06-05] MED LIST changes: +CATHETER FLUSH 10 ML SYR IV PRN; +HOLD METFORMIN - RECEIVED CONTRAST 20 ML VIAL IV SCH; +IOHEXOL 350 MG/ML 100 ML (OMNIPAQUE 350) VIAL IV ONE; +NS 100 ML (IVPB) BAG IV ONE
--- NOTE | 2022-06-05 16:07 | Diagnostic Imaging Report ---
EXAMINATION: CT neck, chest, abdomen, and pelvis with intravenous contrast. TECHNIQUE: Multiple contiguous axial images were obtained through the neck, chest, abdomen and pelvis after the uneventful administration of intravenous contrast. All CT scans use one or more of the following dose optimizing techniques: automated exposure control, MA and/or KvP adjustment based on patient size and exam type or iterative reconstruction. HISTORY: Esophageal cancer. COMPARISON: 02/03/2019. FINDINGS: NECK CT: Scattered subcentimeter lymph nodes are seen in the neck. None are pathologically enlarged or abnormally enhancing. The muscles of the neck are normal. Vessels of the neck demonstrate normal course and caliber. Fascial planes are preserved and the deep spaces of the neck are normal. The visualized airway is widely patent. The base of the skull and the temporal bones are normal. Limited views of the brain including the cerebellum and brainstem are normal. The limited view of the [place] is unremarkable. The visualized portions of the orbits are normal. There are no suspicious osseus lesions. CHEST CT: There is no edema or pneumonia. No pleural effusion. No pneumothorax. There is a 4 mm nodule in the right middle lobe. The lungs are moderately emphysematous. There is a new 8 mm right lower lobe nodule. There is a new 10 mm left lower lobe nodule. There is no axillary or supraclavicular lymphadenopathy. There is no mediastinal lymphadenopathy. Heart size is normal. There are mild coronary artery calcifications. No pericardial effusion. Aorta is normal in caliber. There is distal esophageal wall thickening. There is soft tissue extending into the paraesophageal fat measuring [address] mm. ABDOMEN AND PELVIS CT: There are liver masses throughout all segments of the liver. The largest measures 5.1 x 2.8 cm in the right hemiliver with another one measuring 4.9 x 3.3 cm in the dome. There is no biliary ductal dilation. Gallbladder is normal. Pancreas is normal. Spleen is normal. Adrenal glands are normal. The kidneys are normal. There is no hydronephrosis. Urinary bladder is normal. Bowel is normal in caliber without obstruction or inflammation. The appendix is normal. No free fluid or air. There is a 1.3 cm gastrohepatic lymph node. There is a 1.1 cm retroperitoneal lymph node. Aorta is normal in caliber without aneurysm. There is a lytic lesion in the spinous process of L3. IMPRESSION: Distal esophageal mass with suspicious pulmonary nodules, extensive hepatic metastatic disease, upper abdominal lymphadenopathy, and lytic lesion in the spinous process of L3. Dictated by: Dictated on workstation # [id number]
== END ==
LOC: RAD 12:45
PROVIDERS: ATTEND Internal Medicine Hematology & Oncology
DX: C78.7 Secondary malignant neoplasm of liver and intrahepatic bile duct (principal); C16.0 Malignant neoplasm of cardia; K22.89 Other specified disease of esophagus; R59.0 Localized enlarged lymph nodes
CPT/HCPCS: 70491; 71260; 74176

== ENCOUNTER 2022-06-18 05:32 | Outpatient (CLI) | payer OTHER, MEDICARE ==
[~2022-06-18] VITALS: Ht 175.3 cm; Wt 92.7 kg
[~2022-06-18 05:32] MED LIST changes: -CATHETER FLUSH 10 ML SYR IV PRN; -HOLD METFORMIN - RECEIVED CONTRAST 20 ML VIAL IV SCH; -IOHEXOL 350 MG/ML 100 ML (OMNIPAQUE 350) VIAL IV ONE; -NS 100 ML (IVPB) BAG IV ONE
[2022-06-19] MEDS ORDERED: ONDA4TAB11 SL ×2 (18:33)
== END 2022-06-19 09:26 ==
LOC: PREOP 05:32
PROVIDERS: ATTEND Surgery
DX: Z01.818 Encounter for other preprocedural examination (principal); C16.0 Malignant neoplasm of cardia

== ENCOUNTER 2022-06-19 11:52 | Day surgery (SDC) | payer OTHER, MEDICARE ==
[2022-06-19] VITALS (7 sets, daily range): BP systolic 102–112; BP diastolic 67–79
[~2022-06-19] VITALS: Ht 175.3 cm; Wt 92.7 kg
[2022-06-19] MEDS: LACTATED RINGERS 1,000 ML IV PRN ×2 (13:01→15:06)
[2022-06-19] MEDS ORDERED: ceFAZolin INJECTION 2,000 MG in NS (IVPB) 50 ML IV ONE (13:15)
[2022-06-19] MEDS ORDERED: MIDAZOLAM 2 MG/2 ML (VERSED) VIAL IVP ONE (13:45)
[2022-06-19] MEDS ORDERED: MIDAZOLAM 2 MG/2 ML (VERSED) VIAL ONE ×3 (13:47→17:42)
--- NOTE | 2022-06-19 13:49 | Progress Note-Pre Operative ---
Pre-Operative Progress Note Date H&P Reviewed: Jun 19, 2022 Time H&P Reviewed: 13:44 History & Physical: H&P Reviewed, Patient Examed, No changes noted Pre-Operative Diagnosis: Esophageal CA Addendum Physician Addendum Addendum Esophageal CA, Venous insufficiency Pt needs king-cath placed for chemotherapy and IV access. Discussed the procedure with pt and family; risks and complications not limited to pain, bleeding, infection, scar, damage to vasculature and even pneumothorax. All questions answered to their satisfaction. Progress 13:47 ROBERT NOYOLA DO Jun 19, 2022 13:49
[2022-06-19] MEDS ORDERED: BUP/EPI 0.25% 1:200,000 (MARCAINE) 30 ML VIAL ONE (16:41)
[2022-06-19] MEDS ORDERED: 0.9% SODIUM CHLORIDE PF INJ 20 ML VIAL ONE (16:41)
[2022-06-19] MEDS ORDERED: HEParin (CENTRAL IV FLUSH) 500 UNIT/5 ML SYR ONE (16:41)
[2022-06-19] MEDS ORDERED: MIDAZOLAM 2 MG/2 ML (VERSED) VIAL IM ONE (16:45)
[2022-06-19] MEDS ORDERED: PROPOFOL INJECTION 50 ML IV ONE (17:42)
[2022-06-19] MEDS ORDERED: fentaNYL INJ 100 MCG/2 ML AMP ONE (17:42)
[2022-06-19] MEDS ORDERED: HEParin (CENTRAL IV FLUSH) 500 UNIT/5 ML SYR IV ONE (18:13)
[2022-06-19] MEDS ORDERED: BUP/EPI 0.25% 1:200,000 (MARCAINE) 30 ML VIAL INJ ONE (18:16)
[2022-06-19] MEDS ORDERED: 0.9% SODIUM CHLORIDE PF INJ 20 ML VIAL IV ONE (18:18)
--- NOTE | 2022-06-19 18:27 | Diagnostic Imaging Report ---
INDICATION: Intraoperative localization. FINDINGS: 4.1 seconds fluoroscopy was utilized. Right subclavian catheter is in place with its tip in the superior vena cava. Single image was submitted. Right lung is clear. IMPRESSION: Intraoperative fluoroscopy, as described. Dictated by: Dictated on workstation # [id number]
--- NOTE | 2022-06-19 18:32 | Progress Note-Post Operative ---
Post-Operative Progess Note Surgeon (s)/Technical Services Consultant (s) Surgeon ROBERT NOYOLA DO Technical Services Consultant: STACEY Mejia Pre-Operative Diagnosis Esophageal CA Post-Operative Diagnosis same Procedure & Operative Findings Date of Procedure 06/19/22 Procedure Performed/Findings PROCEDURE: Herber-Cath placement The patient was taken to the operating suite, was prepped and draped in a sterile fashion. A surgical pause was performed. Local anesthetic was in- filtrated at the clavicle and along the tract to the right anterior chest, where more local was placed so the pocket could be created. Using an 18 gauge finder needle with negative inspiration the right subclavian vein was accessed on the second attempt and dark nonpulsatile blood was withdrawn. The wire was inserted and fluoroscopy assured proper placement. The needle was removed. The regular wire was inserted and fluoroscopy assured proper placement. The wire was then secured. A #11 blade scalpel was used to make an incision over the right chest and along guidewire. Cautery was used to dissect down to the pectoral fascia. A pocket was created with blunt dissection. The dilator sheath was then advanced over the wire under fluoroscopy and the dilator and wire were removed. The Groshong catheter was inserted through the sheath and the sheath was then removed. The Groshong wire was removed. The catheter was then tunneled to the right chest pocket. Fluoroscopy was used to cut to length and this was then attached to the port which was then placed within the pocket. The port was then sewn in place with a 3-0 Prolene and then accessed without difficulty. It was then flushed with saline and then heparin. The subcutaneous tissues were then reapproximated using 3-0 Vicryl. Finally the skin was closed with 4-0 undyed monocryl, 3 interrupted sutures. The areas were then washed and dried. Skin Affi x was placed over incision. The insertion point of the neck Skin Affix was placed over the incision. The patient tolerated the procedure well without complication and was taken to recovery room in stable condition. The port was left accessed. Anesthesia Type IV sedation by QUAIL FARMER Estimated Blood Loss Estimated blood loss (mL): scant Specimens/Packing Specimens Removed none ROBERT NOYOLA DO Jun 19, 2022 18:32
[2022-06-19] MEDS ORDERED: ONDA4TAB11 SL ×2 (18:33)
--- NOTE | 2022-06-19 18:34 | Discharge Inst-Surgical ---
Discharge Inst-Surgical Depart Medication/Instructions New, Converted or Re-Newed RX: Transmitted to Pharmacy Patient Instructions Follow up Appt: Make appointment for 1 week. [phone] Instructions: No strenuous activity. May shower in 24 hours, no tub bath or soaking. Use incentive spirometer at home as directed. No Smoking Skin/Wound Care: May remove bandages in am. You need to leave the Dermabond on incision it will fall off on it's own. Symptoms to Report: Appetite Changes, Extremity Discoloration, Numbness/Tingling, Swelling Increased, Bleeding Excessive, Eyesight Changes, Pain Increased, Urine Color C hange, Constipation(Persistent), Fever over 101 degree F, Pain/Pressure in chest, Urinating Difficulty, Cough Up/Vomit Blood, Heart Beat Irreg/Pounding, Pain/Pressure in jaw, Cramps in feet or legs, Lightheadedness, Pain/Pressure in shoulder, Diarrhea(Persistent), Memory Changes Suddenly, Questions/Concerns, Weight gain consecutive days, Dizziness/Fainting, Nausea/Vomiting, Shortness of Breath, Weight gain over 2 pounds If questions or concerns contact your physician Or seek help at emergency department. Activity Activity as Tolerated: Yes Activity Instructions: Avoid Stress to Incision Driving Instructions: No Driving/Refer to Dr. Garcia Discharge Diet: No Restrictions Diet After 24 Hours: Clear Liquid if Nauseous If Any Problems/Questions/Issu: Contact Your Physician, Go to Emergency Room Skin/Wound Care Infection Signs and Symptoms: Increased Redness, Foul Odor of Wound, Increased Drainage, Skin Itchy or Has a Rash, Increased Swelling, Temperature Above 101 F Bathing Instructions: Shower, Sponge Stitches/Bella/Dermabond Dis: ROBERT Hernandez DO Jun 19, 2022 18:34
--- NOTE | 2022-06-19 18:35 | Anesthesia-General Post-Op ---
MAC Patient Condition Mental Status/LOC: Same as Preop Cardiovascular: Satisfactory Nausea/Vomiting: Absent Respiratory: Satisfactory Pain: Controlled Complications: Absent Post Op Complications Complications None Follow Up Care/Instructions Patient Instructions None needed. Anesthesiology Discharge Order Discharge Order Patient is doing well, no complaints, stable vital signs, no apparent adverse anesthesia problems. No complications reported per nursing. KEVEN CIFUENTES CRNA Jun 19, 2022 18:35
== END 2022-06-19 19:30 | disposition home or self-care (01) ==
LOC: SDC 11:52
PROVIDERS: ATTEND Surgery
DX: C16.0 Malignant neoplasm of cardia (principal); E66.9 Obesity, unspecified; Z87.891 Personal history of nicotine dependence; K21.9 Gastro-esophageal reflux disease without esophagitis; Z79.899 Other long term (current) drug therapy; Z95.2 Presence of prosthetic heart valve; Z68.30 Body mass index [BMI] 30.0-30.9, adult
CPT/HCPCS: 36561; 76000; 87081; C1788

== ENCOUNTER → 2022-07-03 | Outpatient (CLI) | payer OTHER, MEDICARE ==
[~2022-07-03] MED LIST changes: +ONDA4TAB11 SL
--- NOTE | 2022-07-03 12:56 | Diagnostic Imaging Report ---
PELVIS/BISI HIPS 5> VIEWS INDICATION: Bilateral hip pain COMPARISON: None available. TECHNIQUE: AP pelvis with AP and frog-leg lateral views of both hips for total 5 views FINDINGS: Moderate right and mild left osteoarthritis of the hips. No features of avascular necrosis in the femoral heads. No fracture or worrisome focal osseous lesion on either side. SI joints are normal in appearance. IMPRESSION: Moderate right and mild left hip osteoarthritis. Dictated by: Dictated on workstation # [id number]
--- NOTE | 2022-07-03 12:57 | Diagnostic Imaging Report ---
FEMUR, BILATERAL, 2 VIEWS INDICATION: Bilateral thigh pain COMPARISON: None available. TECHNIQUE: 2 views of each femur for a total of 4 views FINDINGS: No periosteal reaction or fracture lines within the femurs on either side. No endosteal scalloping or concerning focal osseous lesions. Degenerative arthritis of both hips. IMPRESSION: No radiographically apparent stress fractures in the bilateral femurs. Dictated by: Dictated on workstation # [id number]
== END ==
LOC: RAD 10:06
PROVIDERS: ATTEND Internal Medicine Hematology & Oncology
DX: M16.0 Bilateral primary osteoarthritis of hip (principal); C79.51 Secondary malignant neoplasm of bone
CPT/HCPCS: 73523

== ENCOUNTER 2022-07-05 12:58 | Outpatient (RCR) | payer OTHER, MEDICARE ==
[2022-06-20 10:40] LABS: BASOPHILS # (AUTO) 0.1 10^3/uL (0.0-0.1); BASOPHILS % (AUTO) 0 % (0-10); EOSINOPHILS # (AUTO) 0.6 10^3/uL (0.0-0.3); EOSINOPHILS % (AUTO) 3 % (0-10); HEMATOCRIT 35 % (40-54); LYMPHOCYTES % (AUTO) 5 % (12-44); MEAN CORPUSCULAR HEMOGLOBIN 34 pg (25-34); MEAN CORPUSCULAR HGB CONC 35 g/dL (32-36); MEAN CORPUSCULAR VOLUME 99 fL (80-99); MEAN PLATELET VOLUME 10.8 fL (9.0-12.2); MONOCYTES # (AUTO) 1.5 10^3/uL (0.0-1.0); MONOCYTES % (AUTO) 7 % (0-12); NEUTROPHILS # (AUTO) 17.4 10^3/uL (1.8-7.8); NEUTROPHILS % (AUTO) 84 % (42-75); PLATELET COUNT 190 10^3/uL (130-400); WHITE BLOOD COUNT 20.7 10^3/uL (4.3-11.0)
[2022-06-20 10:56] LABS: ALBUMIN 3.2 GM/DL (3.2-4.5); CALCIUM 9.1 MG/DL (8.5-10.1); CREATININE SERUM 0.78 MG/DL (0.60-1.30); TOTAL PROTEIN 6.6 GM/DL (6.4-8.2)
[2022-06-25 12:57] LABS: BASOPHILS # (AUTO) 0.1 10^3/uL (0.0-0.1); BASOPHILS % (AUTO) 1 % (0-10); EOSINOPHILS # (AUTO) 0.7 10^3/uL (0.0-0.3); EOSINOPHILS % (AUTO) 6 % (0-10); HEMATOCRIT 37 % (40-54); HEMOGLOBIN 12.8 g/dL (13.3-17.7); LYMPHOCYTES # (AUTO) 0.8 10^3/uL (1.0-4.0); LYMPHOCYTES % (AUTO) 6 % (12-44); MEAN CORPUSCULAR HEMOGLOBIN 34 pg (25-34); MEAN CORPUSCULAR HGB CONC 35 g/dL (32-36); MEAN CORPUSCULAR VOLUME 97 fL (80-99); MEAN PLATELET VOLUME 10.8 fL (9.0-12.2); MONOCYTES # (AUTO) 0.2 10^3/uL (0.0-1.0); MONOCYTES % (AUTO) 2 % (0-12); NEUTROPHILS # (AUTO) 10.7 10^3/uL (1.8-7.8); NEUTROPHILS % (AUTO) 86 % (42-75); PLATELET COUNT 192 10^3/uL (130-400); WHITE BLOOD COUNT 12.5 10^3/uL (4.3-11.0)
[2022-06-25 13:15] LABS: BILIRUBIN,TOTAL 0.7 MG/DL (0.1-1.0); CALCIUM 8.8 MG/DL (8.5-10.1); CREATININE SERUM 0.75 MG/DL (0.60-1.30); POTASSIUM 3.7 MMOL/L (3.6-5.0); TOTAL PROTEIN 6.3 GM/DL (6.4-8.2)
[2022-07-03 11:20] LABS: BASOPHILS % (AUTO) 1 % (0-10); EOSINOPHILS # (AUTO) 0.5 10^3/uL (0.0-0.3); EOSINOPHILS % (AUTO) 11 % (0-10); HEMATOCRIT 31 % (40-54); HEMOGLOBIN 10.8 g/dL (13.3-17.7); LYMPHOCYTES # (AUTO) 0.4 10^3/uL (1.0-4.0); LYMPHOCYTES % (AUTO) 8 % (12-44); MEAN CORPUSCULAR HEMOGLOBIN 33 pg (25-34); MEAN CORPUSCULAR HGB CONC 34 g/dL (32-36); MEAN CORPUSCULAR VOLUME 97 fL (80-99); MEAN PLATELET VOLUME 10.3 fL (9.0-12.2); MONOCYTES # (AUTO) 0.7 10^3/uL (0.0-1.0); MONOCYTES % (AUTO) 14 % (0-12); NEUTROPHILS # (AUTO) 3.1 10^3/uL (1.8-7.8); NEUTROPHILS % (AUTO) 66 % (42-75); PLATELET COUNT 167 10^3/uL (130-400); WHITE BLOOD COUNT 4.7 10^3/uL (4.3-11.0)
[2022-07-03 11:38] LABS: ALBUMIN 2.7 GM/DL (3.2-4.5); BILIRUBIN,TOTAL 0.7 MG/DL (0.1-1.0); CALCIUM 8.2 MG/DL (8.5-10.1); CREATININE SERUM 0.85 MG/DL (0.60-1.30); POTASSIUM 3.5 MMOL/L (3.6-5.0); TOTAL PROTEIN 5.8 GM/DL (6.4-8.2)
[~2022-07-05] VITALS: Ht 177.8 cm; Wt 94.8 kg
[~2022-07-05 12:58] MED LIST changes: +D5W 500 ML IV SOLUTION 500 ML IV SCH; +D5W IV SCH; +DEXAMETHASONE IV SCH; +HEParin (CENTRAL IV FLUSH) 500 UNIT/5 ML SYR IV PRN; +LEUCOVORIN CALCIUM IV SCH; +NS IV 1000 ML 1,000 ML ONE; +NS IV 500 ML 500 ML ONE; +NS IV SCH; +OXALIPLATIN IV SCH; +PALONOSETRON HCL IV SCH; +PEMBROLIZUMAB 200 MG in NS (IVPB) 50 ML IV SCH; +fluorouraciL 4,800 MG in NS (IVPB) 51.2 ML IV SCH
== END 2022-07-06 | disposition home or self-care (01) ==
LOC: ONC 12:58
PROVIDERS: ATTEND Internal Medicine Hematology & Oncology
DX: Z51.11 Encounter for antineoplastic chemotherapy (principal); Z45.2 Encounter for adjustment and management of vascular access device; C16.0 Malignant neoplasm of cardia; I50.22 Chronic systolic (congestive) heart failure; I25.10 Atherosclerotic heart disease of native coronary artery without angina pectoris; E78.2 Mixed hyperlipidemia; E66.9 Obesity, unspecified; Z72.0 Tobacco use
CPT/HCPCS: 36591; 80053; 85025; 96360; 96361; 96368; 96375; 96411; 96413; 96415; 96416; 96417

== ENCOUNTER 2022-07-05 21:30 | Emergency (ER) | payer OTHER, MEDICARE ==
[~2022-07-05] VITALS: Ht 175 cm; Wt 85.0 kg
[~2022-07-05 21:30] MED LIST changes: -D5W 500 ML IV SOLUTION 500 ML IV SCH; -D5W IV SCH; -DEXAMETHASONE IV SCH; -HEParin (CENTRAL IV FLUSH) 500 UNIT/5 ML SYR IV PRN; -LEUCOVORIN CALCIUM IV SCH; -NS IV 1000 ML 1,000 ML ONE; -NS IV 500 ML 500 ML ONE; -NS IV SCH; -OXALIPLATIN IV SCH; -PALONOSETRON HCL IV SCH; -PEMBROLIZUMAB 200 MG in NS (IVPB) 50 ML IV SCH; -fluorouraciL 4,800 MG in NS (IVPB) 51.2 ML IV SCH
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
[2022-07-05] MEDS ORDERED: NS IV 1000 ML 1,000 ML IV STA (22:12)
[2022-07-05 22:19] LABS: BASOPHILS % (AUTO) 0 % (0-10); EOSINOPHILS # (AUTO) 0.1 10^3/uL (0.0-0.3); EOSINOPHILS % (AUTO) 2 % (0-10); HEMATOCRIT 34 % (40-54); HEMOGLOBIN 11.7 g/dL (13.3-17.7); LYMPHOCYTES # (AUTO) 0.3 10^3/uL (1.0-4.0); LYMPHOCYTES % (AUTO) 11 % (12-44); MEAN CORPUSCULAR HEMOGLOBIN 32 pg (25-34); MEAN CORPUSCULAR HGB CONC 34 g/dL (32-36); MEAN CORPUSCULAR VOLUME 95 fL (80-99); MEAN PLATELET VOLUME 10.5 fL (9.0-12.2); MONOCYTES % (AUTO) 1 % (0-12); NEUTROPHILS # (AUTO) 2.5 10^3/uL (1.8-7.8); NEUTROPHILS % (AUTO) 84 % (42-75); PLATELET COUNT 221 10^3/uL (130-400)
[2022-07-05 22:21] LABS: ALBUMIN 2.7 GM/DL (3.2-4.5)
[2022-07-05 22:22] LABS: POTASSIUM 3.6 MMOL/L (3.6-5.0)
[2022-07-05 22:23] LABS: CALCIUM 8.2 MG/DL (8.5-10.1)
[2022-07-05 22:24] LABS: TOTAL PROTEIN 5.8 GM/DL (6.4-8.2)
[2022-07-05 22:26] LABS: BILIRUBIN,TOTAL 0.6 MG/DL (0.1-1.0)
[2022-07-05 22:28] LABS: CREATININE SERUM 0.77 MG/DL (0.60-1.30)
[2022-07-05 22:29] LABS: INR 1.1 (0.8-1.4); PROTHROMBIN TIME PATIENT 14.7 SEC (12.2-14.7)
[2022-07-05] MEDS ORDERED: fentaNYL INJ 100 MCG/2 ML AMP IVP ONE ×2 (22:30→23:30)
[2022-07-05 23:35] VITALS: BP 103/72
--- NOTE | 2022-07-06 05:39 | Diagnostic Imaging Report ---
INDICATION: Weakness. Comparison is made with prior examination of 05/20/2022. FINDINGS: The heart size is normal. There are patchy bibasilar infiltrates. There is no pleural effusion or pneumothorax. The mediastinum is unremarkable. Repziz-S-Hxgq catheter has its tip in the superior vena cava. IMPRESSION: Minimal patchy bibasilar pulmonary infiltrates Dictated by: Dictated on workstation # [id number]
== END 2022-07-05 23:31 | disposition home or self-care (01) ==
LOC: EDUNIT# 21:30 → ER 21:31
DX: U07.1 COVID-19 (principal); R53.83 Other fatigue; G47.30 Sleep apnea, unspecified; Z99.89 Dependence on other enabling machines and devices; Z85.01 Personal history of malignant neoplasm of esophagus
CPT/HCPCS: 36415; 71045; 80053; 83605; 85025; 85610; 85730; 87040; 87636; 96374; 96376

== ENCOUNTER 2022-07-17 21:01 | Inpatient (IN) | payer OTHER, MEDICARE ==
[~2022-07-17] VITALS: Ht 177.8 cm; Wt 80.1 kg
[2022-07-17] MEDS ORDERED: NS IV 1000 ML 1,000 ML IV SCH (21:30)
[2022-07-17] MEDS ORDERED: CEFEPIME INJECTION 1,000 MG in NS (IVPB) 50 ML IV ONE (21:30)
[2022-07-17 22:01] LABS: BASOPHILS % (AUTO) 0 % (0-10); EOSINOPHILS # (AUTO) 0.1 10^3/uL (0.0-0.3); EOSINOPHILS % (AUTO) 3 % (0-10); HEMATOCRIT 31 % (40-54); HEMOGLOBIN 9.9 g/dL (13.3-17.7); LYMPHOCYTES # (AUTO) 0.7 10^3/uL (1.0-4.0); LYMPHOCYTES % (AUTO) 30 % (12-44); MEAN CORPUSCULAR HEMOGLOBIN 31 pg (25-34); MEAN CORPUSCULAR HGB CONC 32 g/dL (32-36); MEAN CORPUSCULAR VOLUME 97 fL (80-99); MEAN PLATELET VOLUME 10.5 fL (9.0-12.2); MONOCYTES # (AUTO) 0.9 10^3/uL (0.0-1.0); MONOCYTES % (AUTO) 40 % (0-12); NEUTROPHILS # (AUTO) 0.6 10^3/uL (1.8-7.8); NEUTROPHILS % (AUTO) 26 % (42-75); PLATELET COUNT 259 10^3/uL (130-400); WHITE BLOOD COUNT 2.3 10^3/uL (4.3-11.0)
--- NOTE | 2022-07-17 22:06 | Diagnostic Imaging Report ---
EXAMINATION: Chest radiograph, portable AP view. DATE: 07/17/2022 10:02 PM INDICATION: 66-year-old male, fever. COMPARISON: July 05, 2022. FINDINGS: There is a right-sided port catheter tip overlying the mid to lower SVC. Heart size and mediastinal contours are unchanged. There is no identified pneumothorax. There is no large pleural effusion. There is no identified focal airspace consolidation. IMPRESSION: No identified acute cardiopulmonary abnormality. Dictated by: Dictated on workstation # [id number]
[2022-07-17 22:17] LABS: ALBUMIN 2.6 GM/DL (3.2-4.5)
[2022-07-17 22:18] LABS: INR 1.1 (0.8-1.4); POTASSIUM 3.4 MMOL/L (3.6-5.0); PROTHROMBIN TIME PATIENT 14.4 SEC (12.2-14.7)
[2022-07-17 22:19] LABS: CALCIUM 8.3 MG/DL (8.5-10.1)
[2022-07-17 22:20] LABS: TOTAL PROTEIN 5.7 GM/DL (6.4-8.2)
[2022-07-17 22:22] LABS: BILIRUBIN,TOTAL 0.3 MG/DL (0.1-1.0)
[2022-07-17 22:23] LABS: CREATININE SERUM 0.88 MG/DL (0.60-1.30)
[2022-07-17 22:31] LABS: ANISOCYTOSIS SLIGHT; BAND NEUTROPHILS 0 %; LYMPHOCYTES % (MANUAL) 33 %; MONOCYTES % (MANUAL) 25 %; NEUTROPHILS % (MANUAL) 33 %; POLYCHROMASIA SLIGHT; REACTIVE LYMPHOCYTES 6 %
[2022-07-17 22:32] LABS: BASOPHILS % (MANUAL) 1 %; EOSINOPHILS % (MANUAL) 2 %
--- NOTE | 2022-07-17 22:39 | ED General ---
General Chief Complaint: Fever-Adult/Adol Stated Complaint: FEVER,COUGH,SINUS PRESSURE Nursing Triage Note: PT AMB TO RM 9 W C/O COUGH, FEVER, SINUS PRESSURE, AND FATIGUE. PT DX W COVID ON 07/05/22, UNABLE TO COMPLETE CHEMO TODAY D/T DECREASED WBC. PT A&OX4. Source of Information: Patient, Family Exam Limitations: No Limitations (JAMIE DUVALL APRN) History of Present Illness Date Seen by Provider: Jul 17, 2022 Time Seen by Provider: 21:05 Initial Comments Patient is a 66-year-old male who presents to the emergency department with cough, fever, sinus pressure, and fatigue over the last few days. Patient is currently being treated for metastatic esophageal cancer. He was unable to receive his chemotherapy today at the cancer center due to being neutropenic. He and family were informed that if patient were to have a fever of 100.4 or higher he would need to present to the emergency department. ANC at the clinic today per review of labs was 700. Patient states he actually feels better over the last few days than he has in quite a while. His T-max at home was 100.9. Patient was given a dose of Tylenol a few hours prior to arrival. This did not improve his temperature. Patient states his cough is nonproductive. Patient was placed on Levaquin by his oncologist today at the cancer center. He has onl y taken 1 dose of this antibiotic. (JAMIE DUVALL APRN) Allergies and Home Medications Allergies Coded Allergies: No Known Drug Allergies (Unverified , 06/19/22) Patient Home Medication List Home Medication List Reviewed: Yes (JAMIE DUVALL APRN) ALPRAZolam (ALPRAZolam) 0.25 Mg Tablet, 0.25 MG PO BID PRN for ANXIETY, (Reported) Entered as Reported by: LOLA RAYMUNDO on 05/15/22946 Amitriptyline HCl (Amitriptyline HCl) 10 Mg Tablet, 20 MG PO HS, (Reported) Entered as Reported by: LOLA RAYMNUDO on 05/15/22946 Atorvastatin Calcium (Atorvastatin Calcium) 20 Mg Tablet, 20 MG PO DAILY, (Reported) Entered as Reported by: LOLA RAYMUNDO on 05/15/22946 Enalapril Maleate (Enalapril Maleate) 2.5 Mg Tablet, 2.5 MG PO BID, (Reported) Entered as Reported by: LOLA RAYMUNDO on 05/15/22 0947 Meloxicam, Submicronized (Meloxicam) Unknown Strength Capsule, 1 TAB PO DAILY, (Reported) Entered as Reported by: LOLA RAYMUNDO on 05/15/22 0947 Metoprolol Tartrate (Metoprolol Tartrate) 25 Mg Tablet, 12.5 MG PO BID, (Reported) Entered as Reported by: LOLA RAYMUNDO on 05/15/22 09 Omeprazole (Omeprazole) 20 Mg Capsule.dr, 20 MG PO DAILY, (Reported) Entered as Reported by: LOLA RAYMUNDO on 05/15/22 0947 Ondansetron (Ondansetron Odt) 4 Mg Tab.rapdis, 4 MG SL Q4H PRN for NAUSEA/VOMITING Prescribed by: ROBERT NOYOLA on 06/19/22 1833 Sucralfate (Carafate) 1 Gram Tablet, 1 GM PO ACHS Prescribed by: ROBERT NOYOLA on 05/20/22 1106 Review of Systems Review of Systems Constitutional: see HPI, fever EENTM: see HPI, nose congestion Respiratory: see HPI, cough Cardiovascular: no symptoms reported Gastrointestinal: no symptoms reported Genitourinary: no symptoms reported Musculoskeletal: no symptoms reported Skin: no symptoms reported Psychiatric/Neurological: No Symptoms Reported Hematologic/Lymphatic: No Symptoms Reported Immunological/Allergic: no symptoms reported (JAMIE DUVALL APRN) Past Dqzpvde-Uukeaj-Xhqvqi Hx Patient Social History Tobacco Use?: No Use of E-Cig and/or Vaping dev: No Substance use?: No Alcohol Use?: Yes Alcohol Frequency: Once in a while (JAMIE DUVALL APRN) Immunizations Up To Date Influenza Vaccine Up-to-Date: No; Not Current First/Initial COVID19 Vaccinat: 2020 Second COVID19 Vaccination Alan: 2020 Third COVID19 Vaccination Date: NONE COVID19 Vaccine Wool Merchant: MODERNA X2 (JAMIE DUVALL APRN) Seasonal Allergies Seasonal Allergies: No (JAMIE DUVALL APRN) Past Medical History Surgery/Hospitalization HX: ESOPHAGEAL CA W/ METS PORT PLACEMENT Surgeries: Yes (INGUINAL Hernia Surgery, CARDIAC STENT) Respiratory: Yes Sleep Apnea Currently Using CPAP: No (NOT REGULARLY) Currently Using BIPAP: Yes Cardiac: Yes (STENT 8/9 YEARS AGO) Heart Attack, High Cholesterol, Hypertension Neurological: Yes Headaches /Migraines Reproductive Disorders: No Sexually Transmitted Disease: No HIV/AIDS: No Genitourinary: No Gastrointestinal: Yes (HX HEP A YEARS AGO, DSYPHAGIA, HERNIAS) Gastroesophageal Reflux, Hepatitis Musculoskeletal: No (L3) Degenerate Disk Disease, Arthritis Endocrine: No HEENT: No Loss of Vision: Bilateral Hearing Impairment: Denies Cancer: Yes Psychosocial: Yes (ONLY HOSPITAL RELATED) Anxiety Integumentary: No Blood Disorders: No Adverse Reaction/Blood Tranf: No (JAMIE DUVALL APRN) Physical Exam Vital Signs Vital Signs - First Documented 07/17/22 21:08 Temp 38.1 Pulse 103 Resp 22 B/P (MAP) 125/81 (96) Pulse Ox 95 O2 Delivery Room Air (LUIS ANGEL MARSHALL DO) Vital Signs Capillary Refill : Less Than 3 Seconds (JAMIE DUVALL APRN) Height, Weight, BMI Height: 5'10.00" Weight: 216lbs. 0.0oz. 97.693306hh; 25.00 BMI Method:Stated General Appearance: No Apparent Distress, WD/WN HEENT: PERRL/EOMI, TMs Normal, Normal ENT Inspection, Pharynx Normal Neck: Full Range of Motion, Normal Inspection, Non Tender, Supple Respiratory: Chest Non Tender, Lungs Clear, Normal Breath Sounds, No Accessory Muscle Use, No Respiratory Distress Cardiovascular: Regular Rate, Rhythm Gastrointestinal: Non Tender, Soft Extremity: Non Tender, No Calf Tenderness Neurologic/Psychiatric: Alert, Oriented x3, No Motor/Sensory Deficits, Normal Mood/Affect, fish housekeeper II-XII Norm as Tested Skin: Normal Color, Warm/Dry (JAMIE DUVALL DISCHARGE RN) Focused Exam Lactate Level 07/17/22 21:45: Lactic Acid Level 1.93 (LUIS ANGEL MARSHALL DO) Lactic Acid Level Laboratory Tests Test 07/17/22 21:45 Lactic Acid Level 1.93 MMOL/L (0.50-2.00) (LUIS ANGEL MARSHALL DO) Progress/Results/Core Measures Suspected Sepsis SIRS Temperature: Pulse: 103 Respiratory Rate: 22 Laboratory Tests 07/17/22 21:45: White Blood Count 2.3L Blood Pressure 125 /81 Mean: 96 07/17/22 21:45: Lactic Acid Level 1.93 Laboratory Tests 07/17/22 21:45: Creatinine 0.88, INR Comment 1.1, Platelet Count 259, Total Bilirubin 0.3 (JAMIE DUVALL APRN) Results/Orders Lab Results Laboratory Tests Test 07/17/22 21:11 07/17/22 21:45 Range/Units Influenza Type A (RT-PCR) Not Detected Not Detecte Influenza Type B (RT-PCR) Not Detected Not Detecte SARS-CoV-2 RNA (RT-PCR) Not Detected Not Detecte White Blood Count 2.3 L 4.3-11.0 10^3/uL Red Blood Count 3.18 L 4.30-5.52 10^6/uL Hemoglobin 9.9 L 13.3-17.7 g/dL Hematocrit 31 L 40-54 % Mean Corpuscular Volume 97 80-99 fL Mean Corpuscular Hemoglobin 31 25-34 pg Mean Corpuscular Hemoglobin Concent 32 32-36 g/dL Red Cell Distribution Width 13.9 10.0-14.5 % Platelet Count 259 130-400 10^3/uL Mean Platelet Volume 10.5 9.0-12.2 fL Immature Granulocyte % (Auto) 1 % Neutrophils (%) (Auto) 26 L 42-75 % Lymphocytes (%) (Auto) 30 12-44 % Monocytes (%) (Auto) 40 H 0-12 % Eosinophils (%) (Auto) 3 0-10 % Basophils (%) (Auto) 0 0-10 % Neutrophils # (Auto) 0.6 L 1.8-7.8 10^3/uL Lymphocytes # (Auto) 0.7 L 1.0-4.0 10^3/uL Monocytes # (Auto) 0.9 0.0-1.0 10^3/uL Eosinophils # (Auto) 0.1 0.0-0.3 10^3/uL Basophils # (Auto) 0.0 0.0-0.1 10^3/uL Immature Granulocyte # (Auto) 0.0 0.0-0.1 10^3/uL Neutrophils % (Manual) 33 % Lymphocytes % (Manual) 33 % Monocytes % (Manual) 25 % Eosinophils % (Manual) 2 % Basophils % (Manual) 1 % Band Neutrophils 0 % Reactive Lymphocytes 6 % Polychromasia SLIGHT Anisocytosis SLIGHT Macrocytosis SLIGHT Prothrombin Time 14.4 12.2-14.7 SEC INR Comment 1.1 0.8-1.4 Activated Partial Thromboplast Time 29 24-35 SEC Sodium Level 138 135-145 MMOL/L Potassium Level 3.4 L 3.6-5.0 MMOL/L Chloride Level 104 98-107 MMOL/L Carbon Dioxide Level 23 21-32 MMOL/L Anion Gap 11 5-14 MMOL/L Blood Urea Nitrogen 12 7-18 MG/DL Creatinine 0.88 0.60-1.30 MG/DL Estimat Glomerular Filtration Rate 95 BUN/Creatinine Ratio 14 Glucose Level 129 H 70-105 MG/DL Lactic Acid Level 1.93 0.50-2.00 MMOL/L Calcium Level 8.3 L 8.5-10.1 MG/DL Corrected Calcium 9.4 8.5-10.1 MG/DL Total Bilirubin 0.3 0.1-1.0 MG/DL Aspartate Amino Transf (AST/SGOT) 27 5-34 U/L Alanine Aminotransferase (ALT/SGPT) 24 0-55 U/L Alkaline Phosphatase 106 40-136 U/L Total Protein 5.7 L 6.4-8.2 GM/DL Albumin 2.6 L 3.2-4.5 GM/DL (LUIS ANGEL MARSHALL DO) My Orders Orders - LUIS ANGEL MARSHALL DO Covid 19 Inhouse Test (07/17/22 21:07) Influenza A And B By Pcr (07/17/22 21:07) Isolation Central Supply Req (07/17/22 21:07) (LUIS ANGEL MARSHALL DO) Medications Given in ED Current Medications Medications Dose Ordered Sig/Thien Route Start Time Stop Time Status Last Admin Dose Admin Cefepime HCl 1000 mg/Sodium Chloride 50 ml @ 100 mls/hr ONCE ONCE IV 07/17/22 21:30 07/17/22 21:59 DC 07/17/22 21:56 100 MLS/HR (LUIS ANGEL MARSHALL DO) Vital Signs/I&O 07/17/22 07/17/22 21:08 21:08 Temp 38.1 Pulse 103 Resp 22 B/P (MAP) 125/81 (96) Pulse Ox 95 O2 Delivery Room Air Room Air 07/18/22 00:00 Intake Total 1050 ml Balance 1050 ml (LUIS ANGEL MARSHALL DO) Vital Signs/I&O Capillary Refill : Less Than 3 Seconds (JAMIE DUVALL APRN) Blood Pressure Mean: 96 Progress Note : Progress Note Patient is nontoxic and well-hydrated on exam. Vital signs are reassuring with only mild tachycardia and fever noted to be abnormal. Adventitious lung sounds restricted breathing noted on exam. No nuchal rigidity. Patient has moist mucous membranes and a brisk cap refill no clinical evidence of marked dehydration. Sepsis order set initiated. CBC notable for leukopenia and neutropenia with an ANC of 600. This is actually slightly lower than the value earlier today at the cancer center. Patient also has a slightly elevated platelet count. CMP notable for mild hyperkalemia. Chest x-ray reveals no acute abnormality. Rapid flu and COVID are both negative. Coagulation studies are unremarkable. Patient had an IV placed and orders for IV cefepime and a liter of normal saline were ordered. Blood cultures were obtained. Due to patient being truly neutropenic and having a fever over 100.4. He will need to be admitted for further evaluation and treatment. No obvious source was found during the emergency department evaluation. I spoke with the hospitalist, Dr. Hu, who kindly agreed to admit the patient. Patient was updated on plan of care and need for admission. He and family verbalized understanding and agreement. (JAMIE DUVALL APRN) Departure Impression Primary Impression: Neutropenic fever Disposition: ADMITTED INPATIENT Condition: Stable Admissions Decision to Admit Reason: Admit from ER (General) Decision to Admit/Date: Jul 17, 2022 Time/Decision to Admit Time: 22:30 (JAMIE DUVALL APRN) Departure-Patient Inst. Referrals: MARGARITA HU DO (PCP/Family) Primary Care Physician ATTENDING PHYSICIAN NOTE: I WAS PHYSICALLY PRESENT ER PHYSICIAN, BUT I WAS NOT INVOLVED IN ANY DECISION MAKING OR ANY CARE OF THIS PATIENT, AND I AM NOT COLLABORATING PHYSICIAN. (LUIS ANGEL MARSHALL DO) JAMIE DUVALL APRN Jul 17, 2022 22:39 LUIS ANGEL MARSHALL DO Jul 18, 2022 00:19
[2022-07-17 23:16] VITALS: BP 111/69
[2022-07-17 23:50] LABS: BILIRUBIN,URINE NEGATIVE (NEGATIVE); CLARITY,URINE CLEAR; COLOR,URINE YELLOW; GLUCOSE, URINE (UA) NEGATIVE (NEGATIVE); KETONES,URINE NEGATIVE (NEGATIVE); LEUKOCYTE ESTERASE ,URINE NEGATIVE (NEGATIVE); NITRITE,URINE NEGATIVE (NEGATIVE); PROTEIN,URINE NEGATIVE (NEGATIVE)
[2022-07-17 23:57] LABS: BACTERIA,URINE NEGATIVE /HPF; SQUAMOUS EPITHELIAL CELL,UR RARE /HPF
[2022-07-18] MEDS ORDERED: ALPRAZolam 0.25 MG (XANAX) TAB PO PRN ×3 (00:15→19:30)
[2022-07-18] MEDS ORDERED: ACETAMINOPHEN 325 MG TABLET PO PRN (00:15)
[2022-07-18] MEDS: VANCOMYCIN 750 MG/NS 250 ML IVPB IV SCH ×4 (00:29→01:32)
[2022-07-18] MEDS: CATHETER FLUSH 10 ML SYR IVP SCH ×3 (01:33→19:53)
[2022-07-18 03:10] VITALS: BP 125/73
[2022-07-18 08:04] VITALS: BP 122/72
[2022-07-18] MEDS: CEFEPIME 1,000 MG/NS 50 ML IVPB IV SCH ×6 (08:56→19:51)
[2022-07-18 11:09] VITALS: BP 115/69
[2022-07-18] MEDS ORDERED: ONDANSETRON 4 MG/2 ML (SDV) Z0FRAN IVP PRN (11:15)
[2022-07-18] MEDS ORDERED: MELATONIN 3 MG TABLET PO PRN (11:15)
[2022-07-18] MEDS ORDERED: CALCIUM CARBONATE 500 MG (TUMS) TAB.CHEW PO PRN (11:15)
[2022-07-18] MEDS ORDERED: DOCUSATE SODIUM 100 MG (COLACE) CAP PO PRN (11:15)
[2022-07-18] MEDS ORDERED: ONDANSETRON 4 MG (ZOFRAN) ORAL DISSOLVE TAB PO PRN (11:15)
[2022-07-18] MEDS ORDERED: diphenhydrAMINE 25 MG TAB (BENADRYL) PO PRN (11:15)
[2022-07-18] MEDS: ENOXAPARIN 40 MG/0.4 ML (LOVENOX) SYR SC SCH (11:36)
[2022-07-18] MEDS: VANCOMYCIN 1250 MG/NS 250 ML IVPB IV SCH ×2 (11:36)
[2022-07-18] MEDS ORDERED: SUCR1TAB PO (15:05)
[2022-07-18] MEDS ORDERED: MELO15TA39 PO (15:05)
[2022-07-18] MEDS ORDERED: LEVO-55 PO (15:05)
[2022-07-18] MEDS ORDERED: GABA300C PO (15:05)
[2022-07-18] MEDS ORDERED: POTA-51 PO (15:05)
--- NOTE | 2022-07-18 15:19 | History & Physical ---
TRICIA DESAI 07/18/22 1519: History of Present Illness History of Present Illness Reason for visit/HPI 66 yo M with metastatic esophageal cancer, CAD, HTN and anxiety amongst other chronic health conditions admitted on 07/17 from the ED for findings consistent with neutropenic fever. The patient's daughter detailed his history: he had been receiving FOLFOX chemotherapy since early June and had been provided instructions to visit the ER if his temperature ever reached 100.4F or greater. On 07/17 he was scheduled to receive chemotherapy; the center cancelled his treatment and provided Levofloxacin upon reviewing his bloodwork. That evening, he developed a fever of 100.9 F; he took Tylenol 325 mg x2 which did not improve his temperature and arrived to the ER around 9.00pm. He was admitted to the hospital a few hours later. At this time, he admits to a mild, intermittent cough that he says remains from Covid-19 (diagnosed and treated with Paxlovid on 07/05) but is otherwise comfortable and denies pain, SOB or chest pain. He has taken 1 dose of levofloxacin. Date of Admission Jul 18, 2022 at 10:03 Date Seen by a Provider: Jul 18, 2022 I consulted on this patient on 07/18/22 15:15 Attending Physician Gina Hu DO Admitting Physician Admitting Physician: Gina Hu DO Attending Physician: Gina Hu DO Consult Allergies and Home Medications Allergies Coded Allergies: No Known Drug Allergies (Unverified , 06/19/22) Patient Home Medication List ALPRAZolam (ALPRAZolam) 0.25 Mg Tablet, 0.25 MG PO Q6H PRN for ANXIETY, (Reported) Entered as Reported by: LOLA RAYMUNDO on 05/15/22946 Last Action: Held Amitriptyline HCl (Amitriptyline HCl) 10 Mg Tablet, 20 MG PO HS, (Reported) Entered as Reported by: LOLA RAYMUNDO on 05/15/22946 Last Action: Continued Atorvastatin Calcium (Atorvastatin Calcium) 20 Mg Tablet, 20 MG PO HS, (Reported) Entered as Reported by: LOLA RAYMUNDO on 05/15/22946 Last Action: Continued Gabapentin (Neurontin) 300 Mg Capsule, 300 MG PO TID, (Reported) Entered as Reported by: CHIKIS ARMENDARIZ on 07/18/221504 Last Action: Continued Levofloxacin (Levofloxacin) 500 Mg Tablet, 500 MG PO DAILY, (Reported) Entered as Reported by: CHIIKS ARMENDARIZ on 07/18/221504 Last Action: Held Meloxicam (Meloxicam) 15 Mg Tablet, 15 MG PO DAILY, (Reported) Entered as Reported by: CHIKIS ARMENDARIZ on 07/18/221504 Last Action: Converted Omeprazole (Omeprazole) 20 Mg Capsule.dr, 20 MG PO DAILY, (Reported) Entered as Reported by: LOLA RAYMUNDO on 05/15/22946 Last Action: Continued Potassium Chloride (Potassium Chloride) 20 Meq Tablet.er, 20 MEQ PO DAILY, (Reported) Entered as Reported by: CHIKIS ARMENDARIZ on 07/18/221504 Last Action: Converted Sucralfate (Sucralfate) 1 Gram Tablet, 1 GM PO BIDAC, (Reported) Entered as Reported by: CHIKIS ARMENDARIZ on 07/18/221504 Last Action: Continued Discontinued Medications Enalapril Maleate (Enalapril Maleate) 2.5 Mg Tablet, 2.5 MG PO BID, (Reported) Discontinued Reason: No Longer Taking Entered as Reported by: LOLA RAYMUNDO on 05/15/22946 Last Action: Discontinued Meloxicam, Submicronized (Meloxicam) Unknown Strength Capsule, 1 TAB PO DAILY, (Reported) Discontinued Reason: Duplicate Order Entered as Reported by: LOLA RAYMUNDO on 05/15/22946 Last Action: Discontinued Metoprolol Tartrate (Metoprolol Tartrate) 25 Mg Tablet, 12.5 MG PO BID, (Reported) Discontinued Reason: No Longer Taking Entered as Reported by: LOLA RAYMUNDO on 05/15/22946 Last Action: Discontinued Ondansetron (Ondansetron Odt) 4 Mg Tab.rapdis, 4 MG SL Q4H PRN for NAUSEA/VOMITING Discontinued Reason: No Longer Taking Prescribed by: ROBERT NOYOLA on 06/19/22 2243 Last Action: Discontinued Sucralfate (Carafate) 1 Gram Tablet, 1 GM PO ACHS Discontinued Reason: Duplicate Order Prescribed by: ROBERT NOYOLA on 05/20/22 1106 Last Action: Discontinued Past Ygpqfrp-Pgknvl-Ewrtex Hx Patient Social History Tobacco Use?: No Smoking Status: Former Smoker Use of E-Cig and/or Vaping dev: No Substance use?: No Alcohol Use?: Yes Alcohol Frequency: Couple times a week Immunizations Up To Date First/Initial COVID19 Vaccinat: 2020 Second COVID19 Vaccination Alan: 2020 Seasonal Allergies Seasonal Allergies: No Current Status Advance Directives: No Communicates: Verbally Primary Language: Bulgarian Preferred Spoken Language: Bulgarian Is interpretation needed?: No Sensory deficits: Vision impairment Implanted or Applied Medical D: Port-a-cath, Stents Past Medical History Sleep Apnea Currently Using CPAP: No (NOT REGULARLY) Currently Using BIPAP: Yes Heart Attack, High Cholesterol, Hypertension Headaches /Migraines Sexually Transmitted Disease: No HIV/AIDS: No Gastroesophageal Reflux, Hepatitis Degenerate Disk Disease, Arthritis Loss of Vision: Bilateral Hearing Impairment: Denies Anxiety Blood Disorders: No Adverse Reaction/Blood Tranf: No Review of Systems Respiratory: cough Physical Exam Vital Signs Vital Signs - First Documented 07/17/22 21:08 Temp 38.1 Pulse 103 Resp 22 B/P (MAP) 125/81 (96) Pulse Ox 95 O2 Delivery Room Air Capillary Refill : Less Than 3 Seconds Height, Weight, BMI Height: 5'10.00" Weight: 216lbs. 0.0oz. 97.795755ra; 25.33 BMI Method:Stated General Appearance: No Apparent Distress Respiratory: Lungs Clear, Normal Breath Sounds Cardiovascular: Regular Rate, Rhythm Gastrointestinal: Normal Bowel Sounds, Non Tender Extremity: Normal Inspection Neurologic/Psychiatric: Alert, Oriented x3 Assessment/Plan Assessment and Plan (1) Neutropenic fever - organism undetermined; awaiting results of blood culture - fever resolved as of 546 hrs today (36.5 C) - Vancomyin and Piperacillin-Tazobactam since 07/17 (2) Metastatic esophageal cancer - oxycodone and ondansetron - treatment with FOLFOX since June (last treatment 07/04) (3) Anxiety - aprazolam (4) GERD - calcium carbonate (6) Anemia (7) HTN (8) CAD Educated patient and family on importance of determining source of infection and completing necessary antibiotics prior to discharge. Patient permitted to ambula te within his room. Admission Diagnosis Neutropenic fever GINA HU DO 07/19/22 0522: History of Present Illness History of Present Illness Reason for visit/HPI Neutropenic fever Time Seen by a Provider: 11:00 Allergies and Home Medications Allergies Coded Allergies: No Known Drug Allergies (Unverified , 06/19/22) Patient Home Medication List Home Medication List Reviewed: Yes ALPRAZolam (ALPRAZolam) 0.25 Mg Tablet, 0.25 MG PO Q6H PRN for ANXIETY, (Reported) Entered as Reported by: LOLA RAYMUNDO on 05/15/22946 Last Action: Held Amitriptyline HCl (Amitriptyline HCl) 10 Mg Tablet, 20 MG PO HS, (Reported) Entered as Reported by: LOLA RAYMUNDO on 05/15/22946 Last Action: Continued Atorvastatin Calcium (Atorvastatin Calcium) 20 Mg Tablet, 20 MG PO HS, (Reported) Entered as Reported by: LOLA RAYMUNDO on 05/15/22946 Last Action: Continued Gabapentin (Neurontin) 300 Mg Capsule, 300 MG PO TID, (Reported) Entered as Reported by: CHIKIS ARMENDARIZ on 07/18/221504 Last Action: Continued Levofloxacin (Levofloxacin) 500 Mg Tablet, 500 MG PO DAILY, (Reported) Entered as Reported by: CHIKIS ARMENDARIZ on 07/18/221504 Last Action: Held Meloxicam (Meloxicam) 15 Mg Tablet, 15 MG PO DAILY, (Reported) Entered as Reported by: CHIKIS ARMENDARIZ on 07/18/221504 Last Action: Converted Omeprazole (Omeprazole) 20 Mg Capsule.dr, 20 MG PO DAILY, (Reported) Entered as Reported by: LOLA RAYMUNDO on 05/15/22946 Last Action: Continued Potassium Chloride (Potassium Chloride) 20 Meq Tablet.er, 20 MEQ PO DAILY, (Reported) Entered as Reported by: CHIKIS ARMENDARIZ on 07/18/221504 Last Action: Converted Sucralfate (Sucralfate) 1 Gram Tablet, 1 GM PO BIDAC, (Reported) Entered as Reported by: CHIKIS ARMENDARIZ on 07/18/221504 Last Action: Continued Discontinued Medications Enalapril Maleate (Enalapril Maleate) 2.5 Mg Tablet, 2.5 MG PO BID, (Reported) Discontinued Reason: No Longer Taking Entered as Reported by: LOLA RAYMUNDO on 05/15/22946 Last Action: Discontinued Meloxicam, Submicronized (Meloxicam) Unknown Strength Capsule, 1 TAB PO DAILY, (Reported) Discontinued Reason: Duplicate Order Entered as Reported by: LOLA RAYMUNDO on 05/15/22946 Last Action: Discontinued Metoprolol Tartrate (Metoprolol Tartrate) 25 Mg Tablet, 12.5 MG PO BID, (Reported) Discontinued Reason: No Longer Taking Entered as Reported by: LOLA RAYMUNDO on 05/15/22946 Last Action: Discontinued Ondansetron (Ondansetron Odt) 4 Mg Tab.rapdis, 4 MG SL Q4H PRN for NAUSEA/VOMITING Discontinued Reason: No Longer Taking Prescribed by: ROBERT NOYOLA on 06/19/22 183 Last Action: Discontinued Sucralfate (Carafate) 1 Gram Tablet, 1 GM PO ACHS Discontinued Reason: Duplicate Order Prescribed by: ROBERT NOYOLA on 05/20/22 110 Last Action: Discontinued Past Pjitofq-Fuxiyq-Ifrwha Hx Patient Social History Marrital Status: single Employed/Student: retired Past Medical History Gastroesophageal Reflux Sleep Difficulties, Anxiety Review of Systems Constitutional: see HPI Physical Exam General Appearance: No Apparent Distress, WD/WN, Chronically ill Eyes: Bilateral Eye Normal Inspection, Bilateral Eye PERRL, Bilateral Eye EOMI HEENT: PERRL/EOMI, Normal ENT Inspection, Pharynx Normal Neck: Full Range of Motion, Normal Inspection, Non Tender, Supple, Carotid Bruit Respiratory: Chest Non Tender, Lungs Clear, Normal Breath Sounds, No Accessory Muscle Use, No Respiratory Distress Cardiovascular: Regular Rate, Rhythm, No Edema, No Gallop, No JVD, No Murmur, Normal Peripheral Pulses Gastrointestinal: Normal Bowel Sounds, No Organomegaly, No Pulsatile Mass, Non Tender, Soft Back: Normal Inspection, No CVA Tenderness, No Vertebral Tenderness Extremity: Normal Capillary Refill, Normal Inspection, Normal Range of Motion, Non Tender, No Calf Tenderness, No Pedal Edema Neurologic/Psychiatric: Alert, Oriented x3, No Motor/Sensory Deficits, Normal Mood/Affect Skin: Normal Color, Warm/Dry Lymphatic: No Adenopathy Assessment/Plan Assessment and Plan Supportive care Discharge plan tomorrow Admission Diagnosis Admission Status: Inpatient Order (span 2 midnights) Reason for Inpatient Admission: Neutropenic fever Supervisory-Addendum Brief Verification & Attestation Participated in pt care: history, MDM, physical Personally performed: exam, history, MDM, supervision of care Care discussed with: Medical Student Procedures: n/a Results interpretation: Verified all documentation Verification and Attestation of Medical Student E/M Service A medical student performed and documented this service in my presence. I reviewed and verified all information documented by the medical student and made modifications to such information, when appropriate. I personally performed the physical exam and medical decision making. Gina Hu, Jul 19, 2022,05:22 TRICIA DESAI Jul 18, 2022 15:19 GINA HU DO Jul 19, 2022 05:22
[2022-07-18 15:20] VITALS: BP 115/74
[2022-07-18 19:27] VITALS: BP 123/85
[2022-07-18] MEDS: GABAPENTIN 300 MG (NEURONTIN) CAP PO SCH (19:50)
[2022-07-18] MEDS: SENNA W/DOCUSATE (SENOKOT S) TABLET PO SCH (19:53)
[2022-07-18] MEDS ORDERED: SUCRALFATE 1 GM (CARAFATE) TAB ONE (20:00)
[2022-07-18] MEDS ORDERED: PANTOPRAZOLE 20 MG TABLET (PROTONIX) PO ONE (20:05)
[2022-07-18] MEDS ORDERED: MELOXICAM 7.5 MG (MOBIC) TABLET PO ONE (20:15)
[2022-07-18] MEDS: PANTOPRAZOLE 20 MG TABLET (PROTONIX) PO SCH (20:18)
[2022-07-18] MEDS: SUCRALFATE 1 GM (CARAFATE) TAB PO SCH (20:18)
[2022-07-18] MEDS: MELOXICAM 7.5 MG (MOBIC) TABLET PO SCH (20:18)
[2022-07-18] MEDS ORDERED: AMITRIPTYLINE 10 MG (ELAVIL) TAB PO SCH (21:00)
[2022-07-18 23:15] VITALS: BP 112/68
[2022-07-19] MEDS: VANCOMYCIN 1250 MG/NS 250 ML IVPB IV SCH ×2 (00:03)
[2022-07-19] MEDS: CEFEPIME 1,000 MG/NS 50 ML IVPB IV SCH ×4 (01:18→10:00)
[2022-07-19 03:13] VITALS: BP 127/82
[2022-07-19] MEDS: CATHETER FLUSH 10 ML SYR IVP SCH ×2 (05:10→14:35)
[2022-07-19] MEDS ORDERED: KCL 20 MEQ TAB (K-DUR) PO SCH (07:00)
[2022-07-19 07:45] VITALS: BP 127/84
[2022-07-19] MEDS ORDERED: NON-FORMULARY MEDICATION 1 EA EA (Potassium Chloride 20 MEQ) PO SCH (09:00)
[2022-07-19] MEDS ORDERED: NON-FORMULARY MEDICATION 1 EA EA (Meloxicam 15 MG) PO SCH (09:00)
[2022-07-19] MEDS ORDERED: OMEPRAZOLE 20 MG (PriLOSEC) CAP NON-FORMULARY PO SCH (09:00)
[2022-07-19] MEDS: GABAPENTIN 300 MG (NEURONTIN) CAP PO SCH ×2 (09:59→12:19)
[2022-07-19] MEDS: MELOXICAM 7.5 MG (MOBIC) TABLET PO SCH (09:59)
[2022-07-19] MEDS: SUCRALFATE 1 GM (CARAFATE) TAB PO SCH (09:59)
[2022-07-19] MEDS: SENNA W/DOCUSATE (SENOKOT S) TABLET PO SCH (09:59)
[2022-07-19] MEDS: PANTOPRAZOLE 20 MG TABLET (PROTONIX) PO SCH (10:00)
[2022-07-19] MEDS ORDERED: TROUGH ORDER-PHARMACY XX NR (11:30)
[2022-07-19 11:46] VITALS: BP 106/71
[2022-07-19] MEDS ORDERED: BENZ100C18 PO (12:06)
--- NOTE | 2022-07-19 12:08 | Discharge Summary ---
Diagnosis/Chief Complaint Date of Admission Jul 18, 2022 at 10:03 Date of Discharge Discharge Date: Jul 19, 2022 Discharge Diagnosis (1) Neutropenic fever - organism undetermined; awaiting results of blood culture - fever resolved as of 546 hrs today (36.5 C) - Vancomyin and Piperacillin-Tazobactam since 07/17 (2) Metastatic esophageal cancer - oxycodone and ondansetron - treatment with FOLFOX since June (last treatment 07/04) (3) Anxiety - aprazolam (4) GERD - calcium carbonate (6) Anemia (7) HTN (8) CAD Reason Hospital Visit Neutropenic fever Discharge Summary Discharge Physical Examination Allergies: Coded Allergies: No Known Drug Allergies (Unverified , 06/19/22) Vitals & I&Os Vital Signs Date Time Temp Pulse Resp B/P (MAP) Pulse Ox O2 Delivery O2 Flow Rate FiO2 07/19/22 14:41 07/19/22 11:46 35.9 76 18 96 Room Air General Appearance: Alert, Oriented X3, Cooperative Respiratory: Clear to Auscultation Psych/Mental Status: Mental Status NL Hospital Course Was the Problem List Reviewed?: Yes 66 yo M with metastatic esophageal cancer, CAD, HTN and anxiety amongst other chronic health conditions admitted on 07/17 from the ED for findings consistent with neutropenic fever. The patient's daughter detailed his history: he had been receiving FOLFOX chemotherapy since early June and been provided instructions to visit the ER if his temperature ever reached 100.4F or greater. On 07/17 he was scheduled to receive chemotherapy; the center cancelled his treatment and provided Levofloxacin upon reviewing his bloodwork. That evening at 8:00 pm, he developed a fever of 100.9 F; he took Tylenol 325 mg x2 which did not lower temperature and arrived to the ED around 9:00pm; here he was found to be leukopenic (2.3), neutropenic (ANC 600), tachycardic (103), mildy febrile (38.1 C), and mildly hypokalemic (3.4). Blood cultures and urine cultures were obtained and IV cefepime and normal saline were started. He was admitted to the hospital a few hours later; ER medications were continued and Vancomycin and home medications were started. At this time, he admitted to a mild, intermittent dry cough that he said remained from Covid-19 (diagnosed and treated with Paxlovid on 07/05) but denied SOB, chest pain, GI disturbances or pain otherwise. He had taken 1 dose of levofloxacin. Within 2 hrs of admission, his temperature decreased to 37.4 C; he remained afebrile thereafter. KCl was st arted 07/19 in the am. By 07/19 afternoon, WBC improved to 3.6, ANC improved to 1500 and potassium was 3.2. This day, his cough remained and he requested cough suppressant; otherwise he continued to deny pain and purport good appetite, urination, bowel movements and ambulation. He was provided 1 dose of Levofloxacin 500 mg and instructed to complete the remainder of the Levofloxacin course provided by the cancer center. He was disharged with Tessalon Perles 100 mg and KCl. Cultures did not yield growth during his stay. Labs (last 24 hrs) Laboratory Tests 07/17/22 21:11: Influenza Type A (RT-PCR) Not Detected, Influenza Type B (RT-PCR) Not Detected, SARS-CoV-2 RNA (RT-PCR) Not Detected 07/17/22 21:45: White Blood Count 2.3L, Red Blood Count 3.18L, Hemoglobin 9.9L, Hematocrit 31L, Mean Corpuscular Volume 97, Mean Corpuscular Hemoglobin 31, Mean Corpuscular Hemoglobin Concent 32, Red Cell Distribution Width 13.9, Platelet Count 259, Mean Platelet Volume 10.5, Immature Granulocyte % (Auto) 1, Neutrophils (%) (Auto) 26L, Lymphocytes (%) (Auto) 30, Monocytes (%) (Auto) 40H, Eosinophils (%) (Auto) 3, Basophils (%) (Auto) 0, Neutrophils # (Auto) 0.6L, Lymphocytes # (Auto) 0.7L, Monocytes # (Auto) 0.9, Eosinophils # (Auto) 0.1, Basophils # (Auto) 0.0, Immature Granulocyte # (Auto) 0.0, Neutrophils % (Manual) 33, Lymphocytes % (Manual) 33, Monocytes % (Manual) 25, Eosinophils % (Manual) 2, Basophils % (Manual) 1, Band Neutrophils 0, Reactive Lymphocytes 6, Polych romasia SLIGHT, Anisocytosis SLIGHT, Macrocytosis SLIGHT, Prothrombin Time 14.4, INR Comment 1.1, Activated Partial Thromboplast Time 29, Sodium Level 138, Potassium Level 3.4L, Chloride Level 104, Carbon Dioxide Level 23, Anion Gap 11, Blood Urea Nitrogen 12, Creatinine 0.88, Estimat Glomerular Filtration Rate 95, BUN/Creatinine Ratio 14, Glucose Level 129H, Lactic Acid Level 1.93, Calcium Level 8.3L, Corrected Calcium 9.4, Total Bilirubin 0.3, Aspartate Amino Transf (AST/SGOT) 27, Alanine Aminotransferase (ALT/SGPT) 24, Alkaline Phosphatase 106, Total Protein 5.7L, Albumin 2.6L 07/17/22 23:40: Urine Color YELLOW, Urine Clarity CLEAR, Urine pH 6.0, Urine Specific [place] >=1.030, Urine Protein NEGATIVE, Urine Glucose (UA) NEGATIVE, Urine Ketones NEGATIVE, Urine Nitrite NEGATIVE, Urine Bilirubin NEGATIVE, Urine Urobilinogen 0.2, Urine Leukocyte Esterase NEGATIVE, Urine RBC (Auto) NEGATIVE, Urine RBC NONE, Urine WBC NONE, Urine Squamous Epithelial Cells RARE, Urine Crystals NONE, Urine Bacteria NEGATIVE, Urine Casts NONE, Urine Mucus SMALLH, Urine Culture Indicated NO 07/19/22 10:45: Vancomycin Level Trough 14.5 07/19/22 12:15: White Blood Count 3.6L, Red Blood Count 3.30L, Hemoglobin 10.5L, Hematocrit 32L, Mean Corpuscular Volume 98, Mean Corpuscular Hemoglobin 32, Mean Corpuscular Hem oglobin Concent 32, Red Cell Distribution Width 14.2, Platelet Count 317, Mean Platelet Volume 10.0, Immature Granulocyte % (Auto) 4, Neutrophils (%) (Auto) 40L, Lymphocytes (%) (Auto) 24, Monocytes (%) (Auto) 29H, Eosinophils (%) (Auto) 2, Basophils (%) (Auto) 1, Neutrophils # (Auto) 1.5L, Lymphocytes # (Auto) 0.9L, Monocytes # (Auto) 1.0, Eosinophils # (Auto) 0.1, Basophils # (Auto) 0.0, Immature Granulocyte # (Auto) 0.2H, Neutrophils % (Manual) 35, Lymphocytes % (Manual) 20, Monocytes % (Manual) 35, Eosinophils % (Manual) 2, Band Neutrophils 4, Nucleated Red Blood Cells 2, Reactive Lymphocytes 4, Polychromasia SLIGHT, Anisocytosis SLIGHT, Macrocytosis SLIGHT, Sodium Level 140, Potassium Level 3.2L , Chloride Level 107, Carbon Dioxide Level 26, Anion Gap 7, Blood Urea Nitrogen 9, Creatinine 0.85, Estimat Glomerular Filtration Rate 96, BUN/Creatinine Ratio 11, Glucose Level 100, Calcium Level 8.7, Corrected Calcium 9.8, Total Bilirubin 0.3, Aspartate Amino Transf (AST/SGOT) 28, Alanine Aminotransferase (ALT/SGPT) 28, Alkaline Phosphatase 103, Total Protein 5.8L, Albumin 2.6L Microbiology 07/17/22 Urine Culture - Final, Complete NO GROWTH 07/17/22 Blood Culture - Preliminary, Resulted No growth Pending Labs Microbiology Date/Time Source Procedure Growth Status 07/17/22 23:40 Urine Clean Catch Urine Culture - Final NO GROWTH Complete 07/17/22 21:54 Peripheral Right Wrist Blood Culture - Preliminary No growth Resulted 07/17/22 21:45 Port Not Otherwise Specified Blood Culture - Preliminary No growth Resulted Laboratory Tests 07/17/22 21:11: Influenza Type A (RT-PCR) Not Detected, Influenza Type B (RT-PCR) Not Detected, SARS-CoV-2 RNA (RT-PCR) Not Detected 07/17/22 21:45: White Blood Count 2.3, Red Blood Count 3.18, Hemoglobin 9.9, Hematocrit 31, Mean Corpuscular Volume 97, Mean Corpuscular Hemoglobin 31, Mean Corpuscular Hemoglobin Concent 32, Red Cell Distribution Width 13.9, Platelet Count 259, Mean Platelet Volume 10.5, Immature Granulocyte % (Auto) 1, Neutrophils (%) (Auto) 26, Lymphocytes (%) (Auto) 30, Monocytes (%) (Auto) 40, Eosinophils (%) (Auto) 3, Basophils (%) (Auto) 0, Neutrophils # (Auto) 0.6, Lymphocytes # (Auto) 0.7, Monocytes # (Auto) 0.9, Eosinophils # (Auto) 0.1, Basophils # (Auto) 0.0, Immature Granulocyte # (Auto) 0.0, Neutrophils % (Manual) 33, Lymphocytes % (Manual) 33, Monocytes % (Manual) 25, Eosinophils % (Manual) 2, Basophils % (Manual) 1, Band Neutrophils 0, Reactive Lymphocytes 6, Polychromasia SLIGHT, Anisocytosis SLIGHT, Macrocytosis SLIGHT, Prothrombin Time 14.4, INR Comment 1.1, Activated Partial Thromboplast Time 29, Sodium Level 138, Potassium Level 3.4, Chloride Level 104, Carbon Dioxide Level 23, Anion Gap 11, Blood Urea Nitrogen 12, Creatinine 0.88, Estimat Glomerular Filtration Rate 95, BUN/Creatinine Ratio 14, Glucose Level 129, Lactic Acid Level 1.93, Calcium Level 8.3, Corrected Calcium 9.4, Total Bilirubin 0.3, Aspartate Amino Transf (AST/SGOT) 27, Alanine Aminotransferase (ALT/SGPT) 24, Alkaline Phosphatase 106, Total Protein 5.7, Albumin 2.6 07/17/22 23:40: Urine Color YELLOW, Urine Clarity CLEAR, Urine pH 6.0, Urine Specific [place] >=1.030, Urine Protein NEGATIVE, Urine Glucose (UA) NEGATIVE, Urine Ketones NEGATIVE, Urine Nitrite NEGATIVE, Urine Bilirubin NEGATIVE, Urine Urobilinogen 0.2, Urine Leukocyte Esterase NEGATIVE, Urine RBC (Auto) NEGATIVE, Urine RBC NONE, Urine WBC NONE, Urine Squamous Epithelial Cells RARE, Urine Crystals NONE, Urine Bacteria NEGATIVE, Urine Casts NONE, Urine Mucus SMALL, Urine Culture Indicated NO 07/19/22 10:45: Vancomycin Level Trough 14.5 07/19/22 12:15: White Blood Count 3.6, Red Blood Count 3.30, Hemoglobin 10.5, Hematocrit 32, Mean Corpuscular Volume 98, Mean Corpuscular Hemoglobin 32, Mean Corpuscular Hemoglobin Concent 32, Red Cell Distribution Width 14.2, Platelet Count 317, Mean Platelet Volume 10.0, Immature Granulocyte % (Auto) 4, Neutrophils (%) (Auto) 40, Lymphocytes (%) (Auto) 24, Monocytes (%) (Auto) 29, Eosinophils (%) (Auto) 2, Basophils (%) (Auto) 1, Neutrophils # (Auto) 1.5, Lymphocytes # (Auto) 0.9, Monocytes # (Auto) 1.0, Eosinophils # (Auto) 0.1, Basophils # (Auto) 0.0, Immature Granulocyte # (Auto) 0.2, Neutrophils % (Manual) 35, Lymphocytes % (Manual) 20, Monocytes % (Manual) 35, Eosinophils % (Manual) 2, Band Neutrophils 4, Nucleated Red Blood Cells 2, Reactive Lymphocytes 4, Polychromasia SLIGHT, Anisocytosis SLIGHT, Macrocytosis SLIGHT, Sodium Level 140, Potassium Level 3.2, Chloride Level 107, Carbon Dioxide Level 26, Anion Gap 7, Blood Urea Nitrogen 9, Creatinine 0.85, Estimat Glomerular Filtration Rate 96, BUN/Creatinine Ratio 11, Glucose Level 100, Calcium Level 8.7, Corrected Calcium 9.8, Total Bilirubin 0.3, Aspartate Amino Transf (AST/SGOT) 28, Alanine Aminotransferase (ALT/SGPT) 28, Alkaline Phosphatase 103, Total Protein 5.8, Albumin 2.6 Discharge Home Medications: Active Scripts Active Tessalon Perles (Benzonatate) 100 Mg Capsule 200 Mg PO Q6H PRN Reported Potassium Chloride 20 Meq Tablet.er 20 Meq PO DAILY NEW MED- STARTED 07-17-2022 #17/17 DAY SUPPLY Meloxicam 15 Mg Tablet 15 Mg PO DAILY LAST FILLED 04-05-2022 #90/ DAY SUPPLY Sucralfate 1 Gram Tablet 1 Gm PO BIDAC Neurontin (Gabapentin) 300 Mg Capsule 300 Mg PO TID Levofloxacin 500 Mg Tablet 500 Mg PO DAILY FILLED 07-17-2022 #7/7 DAY SUPPLY Omeprazole 20 Mg Capsule.dr 20 Mg PO DAILY Amitriptyline HCl 10 Mg Tablet 20 Mg PO HS TAKES 2 (10MG) TABS Atorvastatin Calcium 20 Mg Tablet 20 Mg PO HS ALPRAZolam 0.25 Mg Tablet 0.25 Mg PO Q6H PRN Instructions to patient/family Please see electronic discharge instructions given to patient. MARGARITA HU DO Jul 19, 2022 12:08
[2022-07-19] MEDS: ENOXAPARIN 40 MG/0.4 ML (LOVENOX) SYR SC SCH (12:18)
[2022-07-19] MEDS: BENZONATATE 100 MG (TESSALON) CAPSULE PO SCH ×2 (12:18→13:04)
[2022-07-19 12:27] LABS: BASOPHILS % (AUTO) 1 % (0-10); EOSINOPHILS # (AUTO) 0.1 10^3/uL (0.0-0.3); EOSINOPHILS % (AUTO) 2 % (0-10); HEMATOCRIT 32 % (40-54); HEMOGLOBIN 10.5 g/dL (13.3-17.7); LYMPHOCYTES # (AUTO) 0.9 10^3/uL (1.0-4.0); LYMPHOCYTES % (AUTO) 24 % (12-44); MEAN CORPUSCULAR HEMOGLOBIN 32 pg (25-34); MEAN CORPUSCULAR HGB CONC 32 g/dL (32-36); MEAN CORPUSCULAR VOLUME 98 fL (80-99); MONOCYTES % (AUTO) 29 % (0-12); NEUTROPHILS # (AUTO) 1.5 10^3/uL (1.8-7.8); NEUTROPHILS % (AUTO) 40 % (42-75); PLATELET COUNT 317 10^3/uL (130-400); WHITE BLOOD COUNT 3.6 10^3/uL (4.3-11.0)
[2022-07-19 12:45] LABS: ALBUMIN 2.6 GM/DL (3.2-4.5); BILIRUBIN,TOTAL 0.3 MG/DL (0.1-1.0); CALCIUM 8.7 MG/DL (8.5-10.1); CREATININE SERUM 0.85 MG/DL (0.60-1.30); POTASSIUM 3.2 MMOL/L (3.6-5.0); TOTAL PROTEIN 5.8 GM/DL (6.4-8.2)
[2022-07-19 14:06] LABS: BAND NEUTROPHILS 4 %; EOSINOPHILS % (MANUAL) 2 %; LYMPHOCYTES % (MANUAL) 20 %; MONOCYTES % (MANUAL) 35 %; NEUTROPHILS % (MANUAL) 35 %
[2022-07-19 14:07] LABS: ANISOCYTOSIS SLIGHT; NUCLEATED RED BLOOD CELLS 2; POLYCHROMASIA SLIGHT; REACTIVE LYMPHOCYTES 4 %
[2022-07-19] MEDS ORDERED: KCL 10 MEQ TAB (MICRO K) PO ONE (14:15)
--- NOTE | 2022-07-19 14:44 | Progress Note ---
TRICIA DESAI 07/19/22 1444: Progress Note 66 yo M with metastatic esophageal cancer, CAD, HTN and anxiety amongst other chronic health conditions admitted on 07/17 from the ED for findings consistent with neutropenic fever. The patient's daughter detailed his history: he had been receiving FOLFOX chemotherapy since early June and been provided inst ructions to visit the ER if his temperature ever reached 100.4F or greater. On 07/17 he was scheduled to receive chemotherapy; the center cancelled his treatment and provided Levofloxacin upon reviewing his bloodwork. That evening at 8:00 pm, he developed a fever of 100.9 F; he took Tylenol 325 mg x2 which did not lower temperature and arrived to the ED around 9:00pm; here he was found to be leukopenic (2.3), neutropenic (ANC 600), tachycardic (103), mildy febrile (38.1 C), and mildly hypokalemic (3.4). Blood cultures and urine cultures were obtained and IV cefepime and normal saline were started. He was admitted to the hospital a few hours later; ER medications were continued and Vancomycin and home medications were started. At this time, he admitted to a mild, intermittent dry cough that he said remained from Covid-19 (diagnosed and treated with Paxlovid on 07/05) but denied SOB, chest pain, GI disturbances or pain otherwise. He had taken 1 dose of levofloxacin. Within 2 hrs of admission, his temperature decreased to 37.4 C; he remained afebrile thereafter. KCl was started 07/19 in the am. By 07/19 afternoon, WBC improved to 3.6, ANC improved to 1500 and potassium was 3.2. This day, his cough remained and he requested cough suppressant; otherwise he continued to deny pain and purport good appetite, urination, bowel movements and ambulation. He was provided 1 dose of Levofloxacin 500 mg and instructed to complete the remainder of the Levofloxacin course provided by the cancer center. He was disharged with Tessalon Perles 100 mg and KCl. Cultures did not yield growth during his stay. GINA HU DO 07/19/221957: Supervisory-Addendum Brief Verification & Attestation Participated in pt care: history, MDM, physical Personally performed: exam, history, MDM, supervision of care Care discussed with: Medical Student Procedures: n/a Results interpretation: Verified all documentation Verification and Attestation of Medical Student E/M Service A medical student performed and documented this service in my presence. I reviewed and verified all information documented by the medical student and made modifications to such information, when appropriate. I personally performed the physical exam and medical decision making. Gina Hu, Jul 19, 2022,19:58 TRICIA DESAI Jul 19, 2022 14:44 GINA HU DO Jul 19, 2022 19:58
== END 2022-07-19 14:42 | disposition home or self-care (01) | DRG 809 ==
LOC: EDUNIT# 21:01 → ER 21:04 → 4TH 22:41 → OBSVTOIN 07-18 10:03
PROVIDERS: ADMIT Internal Medicine; ATTEND Internal Medicine
DX: D70.9 Neutropenia, unspecified (principal); C15.9 Malignant neoplasm of esophagus, unspecified; R50.81 Fever presenting with conditions classified elsewhere; F41.9 Anxiety disorder, unspecified; K21.9 Gastro-esophageal reflux disease without esophagitis; D64.9 Anemia, unspecified; I10 Essential (primary) hypertension; I25.10 Atherosclerotic heart disease of native coronary artery without angina pectoris; Z20.822 Contact with and (suspected) exposure to COVID-19; Z92.21 Personal history of antineoplastic chemotherapy; Z87.891 Personal history of nicotine dependence; I25.2 Old myocardial infarction; E78.00 Pure hypercholesterolemia, unspecified; M19.90 Unspecified osteoarthritis, unspecified site
CPT/HCPCS: 36415; 71045; 80053; 80202; 81000; 83605; 85007; 85027; 85610; 85730; 87040; 87088; 87636; G0378

== ENCOUNTER 2022-07-30 10:13 | Outpatient (RCR) | payer OTHER, MEDICARE ==
[2022-07-17 11:16] LABS: BASOPHILS % (AUTO) 1 % (0-10); EOSINOPHILS # (AUTO) 0.1 10^3/uL (0.0-0.3); EOSINOPHILS % (AUTO) 3 % (0-10); HEMATOCRIT 34 % (40-54); LYMPHOCYTES # (AUTO) 0.8 10^3/uL (1.0-4.0); LYMPHOCYTES % (AUTO) 31 % (12-44); MEAN CORPUSCULAR HEMOGLOBIN 32 pg (25-34); MEAN CORPUSCULAR HGB CONC 33 g/dL (32-36); MEAN CORPUSCULAR VOLUME 97 fL (80-99); MEAN PLATELET VOLUME 10.2 fL (9.0-12.2); MONOCYTES # (AUTO) 0.9 10^3/uL (0.0-1.0); MONOCYTES % (AUTO) 37 % (0-12); NEUTROPHILS # (AUTO) 0.7 10^3/uL (1.8-7.8); NEUTROPHILS % (AUTO) 27 % (42-75); PLATELET COUNT 266 10^3/uL (130-400); WHITE BLOOD COUNT 2.4 10^3/uL (4.3-11.0)
[2022-07-17 11:41] LABS: ALBUMIN 2.9 GM/DL (3.2-4.5); BILIRUBIN,TOTAL 0.5 MG/DL (0.1-1.0); CALCIUM 8.4 MG/DL (8.5-10.1); CREATININE SERUM 0.81 MG/DL (0.60-1.30); POTASSIUM 3.1 MMOL/L (3.6-5.0); TOTAL PROTEIN 6.2 GM/DL (6.4-8.2)
[2022-07-23 10:04] LABS: BASOPHILS # (AUTO) 0.1 10^3/uL (0.0-0.1); BASOPHILS % (AUTO) 1 % (0-10); EOSINOPHILS # (AUTO) 0.2 10^3/uL (0.0-0.3); EOSINOPHILS % (AUTO) 2 % (0-10); HEMATOCRIT 38 % (40-54); HEMOGLOBIN 11.7 g/dL (13.3-17.7); LYMPHOCYTES # (AUTO) 1.6 10^3/uL (1.0-4.0); LYMPHOCYTES % (AUTO) 18 % (12-44); MEAN CORPUSCULAR HEMOGLOBIN 32 pg (25-34); MEAN CORPUSCULAR HGB CONC 31 g/dL (32-36); MEAN CORPUSCULAR VOLUME 102 fL (80-99); MEAN PLATELET VOLUME 9.3 fL (9.0-12.2); MONOCYTES # (AUTO) 1.4 10^3/uL (0.0-1.0); MONOCYTES % (AUTO) 15 % (0-12); NEUTROPHILS # (AUTO) 5.5 10^3/uL (1.8-7.8); NEUTROPHILS % (AUTO) 60 % (42-75); PLATELET COUNT 329 10^3/uL (130-400); WHITE BLOOD COUNT 9.1 10^3/uL (4.3-11.0)
[2022-07-23 10:26] LABS: ALBUMIN 3.2 GM/DL (3.2-4.5); BILIRUBIN,TOTAL 0.5 MG/DL (0.1-1.0); CALCIUM 9.2 MG/DL (8.5-10.1); CREATININE SERUM 0.82 MG/DL (0.60-1.30); POTASSIUM 4.4 MMOL/L (3.6-5.0); TOTAL PROTEIN 6.8 GM/DL (6.4-8.2)
[~2022-07-30 10:13] MED LIST changes: +BENZ100C18 PO; +D5W 500 ML IV SOLUTION 500 ML IV SCH; +D5W IV SCH; +DEXAMETHASONE IV SCH; +GABA300C PO; +HEParin (CENTRAL IV FLUSH) 500 UNIT/5 ML SYR IV PRN; +LEUCOVORIN CALCIUM IV SCH; +LEVO-55 PO; +MELO15TA39 PO; +NS IV 500 ML 500 ML ONE; +NS IV SCH; +OXALIPLATIN IV SCH; +PALONOSETRON HCL IV SCH; +PEMBROLIZUMAB 200 MG in NS (IVPB) 50 ML IV SCH; +POTA-51 PO; +SUCR1TAB PO; +fluorouraciL 4,800 MG in NS (IVPB) 51.2 ML IV SCH
[2022-07-30 10:43] LABS: BASOPHILS # (AUTO) 0.1 10^3/uL (0.0-0.1); BASOPHILS % (AUTO) 1 % (0-10); EOSINOPHILS # (AUTO) 0.1 10^3/uL (0.0-0.3); EOSINOPHILS % (AUTO) 2 % (0-10); HEMATOCRIT 38 % (40-54); HEMOGLOBIN 12.1 g/dL (13.3-17.7); LYMPHOCYTES % (AUTO) 19 % (12-44); MEAN CORPUSCULAR HEMOGLOBIN 32 pg (25-34); MEAN CORPUSCULAR HGB CONC 32 g/dL (32-36); MEAN CORPUSCULAR VOLUME 99 fL (80-99); MEAN PLATELET VOLUME 9.7 fL (9.0-12.2); MONOCYTES # (AUTO) 0.3 10^3/uL (0.0-1.0); MONOCYTES % (AUTO) 6 % (0-12); NEUTROPHILS # (AUTO) 3.8 10^3/uL (1.8-7.8); NEUTROPHILS % (AUTO) 71 % (42-75); PLATELET COUNT 231 10^3/uL (130-400); WHITE BLOOD COUNT 5.3 10^3/uL (4.3-11.0)
[2022-07-30 11:05] LABS: ALBUMIN 3.6 GM/DL (3.2-4.5); BILIRUBIN,TOTAL 0.7 MG/DL (0.1-1.0); CREATININE SERUM 0.89 MG/DL (0.60-1.30); POTASSIUM 4.8 MMOL/L (3.6-5.0); TOTAL PROTEIN 7.2 GM/DL (6.4-8.2)
== END 2022-08-06 | disposition home or self-care (01) ==
LOC: ONC 10:13
PROVIDERS: ATTEND Internal Medicine Hematology & Oncology
DX: Z51.11 Encounter for antineoplastic chemotherapy (principal); Z45.2 Encounter for adjustment and management of vascular access device; C16.0 Malignant neoplasm of cardia; I50.22 Chronic systolic (congestive) heart failure; I25.10 Atherosclerotic heart disease of native coronary artery without angina pectoris; E78.2 Mixed hyperlipidemia; E66.9 Obesity, unspecified; Z72.0 Tobacco use
CPT/HCPCS: 80053; 85025; 96360; G0463; 36415; 36591; 83880; 96361; 96375; 96411; 96413; 96417

== ENCOUNTER → 2022-08-14 | Outpatient (CLI) | payer OTHER, MEDICARE ==
[~2022-08-14] MED LIST changes: -D5W 500 ML IV SOLUTION 500 ML IV SCH; -D5W IV SCH; -DEXAMETHASONE IV SCH; -HEParin (CENTRAL IV FLUSH) 500 UNIT/5 ML SYR IV PRN; +HOLD METFORMIN - RECEIVED CONTRAST 20 ML VIAL IV SCH; +IOHEXOL 350 MG/ML 100 ML (OMNIPAQUE 350) VIAL IV ONE; -LEUCOVORIN CALCIUM IV SCH; +NS 100 ML (IVPB) BAG IV ONE; -NS IV 500 ML 500 ML ONE; -NS IV SCH; -OXALIPLATIN IV SCH; -PALONOSETRON HCL IV SCH; -PEMBROLIZUMAB 200 MG in NS (IVPB) 50 ML IV SCH; -fluorouraciL 4,800 MG in NS (IVPB) 51.2 ML IV SCH
--- NOTE | 2022-08-14 11:49 | Diagnostic Imaging Report ---
EXAMINATION: CT chest, abdomen and pelvis with intravenous contrast. TECHNIQUE: Multiple contiguous axial images were obtained through the chest, abdomen and pelvis after the uneventful administration of intravenous contrast. All CT scans use one or more of the following dose optimizing techniques: automated exposure control, MA and/or KvP adjustment based on patient size and exam type or iterative reconstruction. HISTORY: Esophageal cancer COMPARISON: 06/05/2022 FINDINGS: Thyroid: The visualized thyroid gland is normal. Mediastinum: Heart size is normal without significant pericardial effusion. There is aneurysmal dilatation of the ascending thoracic aorta measuring 4.7 cm. No suspicious lymphadenopathy. Lungs and airways: There are background emphysematous changes in the lungs without consolidation, pleural effusion, or pneumothorax. Scarring within the lingula. There is a new right lower lobe pulmonary nodule which measures 0.9 x 0.6 cm. The airways are normal. Solid organs: Redemonstrated hypoattenuating lesions within the liver, decreased in size from prior exam. A customer development representative lesion within the superior right hepatic lobe measures 3.2 x 2.9 cm (previously 4.5 x 3.4 cm). The gallbladder is normal. There is no biliary ductal dilation. Pancreas is normal. Spleen is normal. Adrenal glands are normal. The kidneys are normal without hydronephrosis. Bowel: There is mild thickening of the distal esophagus which appears subjectively decreased from prior exam. The stomach and small bowel are normal without obstruction. The colon and appendix are normal. Peritoneum: There is no intraperitoneal free fluid or free air. Decreased size of the upper abdominal perigastric and periesophageal lymph nodes compared to prior exam. Medical Support Assistant node measures 1.1 x 0.9 cm (previously 2.0 x 1.6 cm). Vasculature: Calcification of the aorta without aneurysm. Musculoskeletal: There are multiple new lytic lesions throughout the spine involving T11, L1, and L5. Pelvis: The prostate gland is normal. The urinary bladder is normal. IMPRESSION: 1. Decreased wall thickening of the distal esophagus compatible with treatment response. 2. Decreasing size of the diffuse hepatic metastatic lesions compared to prior exam. Findings also compatible with treatment response. 3. New lytic lesions seen within the spine are concerning for osseous metastatic disease. 4. A new right lower lobe pulmonary nodule is indeterminate but suspicious. Recommend attention on follow-up imaging. Dictated by: Dictated on workstation # [id number]
== END ==
LOC: RAD 10:44
PROVIDERS: ATTEND Internal Medicine Hematology & Oncology
DX: C15.9 Malignant neoplasm of esophagus, unspecified (principal); C78.7 Secondary malignant neoplasm of liver and intrahepatic bile duct; G95.9 Disease of spinal cord, unspecified; R91.1 Solitary pulmonary nodule
CPT/HCPCS: 71260; 74177

== ENCOUNTER 2022-08-23 13:29 | Outpatient (RCR) | payer OTHER, MEDICARE ==
[2022-08-07 11:24] LABS: BASOPHILS % (AUTO) 1 % (0-10); EOSINOPHILS # (AUTO) 0.2 10^3/uL (0.0-0.3); EOSINOPHILS % (AUTO) 4 % (0-10); HEMATOCRIT 36 % (40-54); HEMOGLOBIN 11.9 g/dL (13.3-17.7); LYMPHOCYTES # (AUTO) 0.9 10^3/uL (1.0-4.0); LYMPHOCYTES % (AUTO) 19 % (12-44); MEAN CORPUSCULAR HEMOGLOBIN 33 pg (25-34); MEAN CORPUSCULAR HGB CONC 33 g/dL (32-36); MEAN CORPUSCULAR VOLUME 100 fL (80-99); MEAN PLATELET VOLUME 10.1 fL (9.0-12.2); MONOCYTES # (AUTO) 0.7 10^3/uL (0.0-1.0); MONOCYTES % (AUTO) 15 % (0-12); NEUTROPHILS # (AUTO) 2.8 10^3/uL (1.8-7.8); NEUTROPHILS % (AUTO) 61 % (42-75); PLATELET COUNT 130 10^3/uL (130-400); WHITE BLOOD COUNT 4.5 10^3/uL (4.3-11.0)
[2022-08-07 11:49] LABS: ALBUMIN 3.3 GM/DL (3.2-4.5); BILIRUBIN,TOTAL 0.4 MG/DL (0.1-1.0); CALCIUM 9.2 MG/DL (8.5-10.1); CREATININE SERUM 0.88 MG/DL (0.60-1.30); TOTAL PROTEIN 6.8 GM/DL (6.4-8.2)
[2022-08-14 10:44] LABS: BASOPHILS # (AUTO) 0.1 10^3/uL (0.0-0.1); BASOPHILS % (AUTO) 2 % (0-10); EOSINOPHILS # (AUTO) 0.1 10^3/uL (0.0-0.3); EOSINOPHILS % (AUTO) 4 % (0-10); HEMATOCRIT 38 % (40-54); HEMOGLOBIN 12.7 g/dL (13.3-17.7); LYMPHOCYTES % (AUTO) 29 % (12-44); MEAN CORPUSCULAR HEMOGLOBIN 33 pg (25-34); MEAN CORPUSCULAR HGB CONC 33 g/dL (32-36); MEAN CORPUSCULAR VOLUME 100 fL (80-99); MEAN PLATELET VOLUME 9.8 fL (9.0-12.2); MONOCYTES # (AUTO) 0.6 10^3/uL (0.0-1.0); MONOCYTES % (AUTO) 18 % (0-12); NEUTROPHILS # (AUTO) 1.6 10^3/uL (1.8-7.8); NEUTROPHILS % (AUTO) 47 % (42-75); PLATELET COUNT 156 10^3/uL (130-400); WHITE BLOOD COUNT 3.3 10^3/uL (4.3-11.0)
[2022-08-14 11:09] LABS: ALBUMIN 3.3 GM/DL (3.2-4.5); POTASSIUM 3.8 MMOL/L (3.6-5.0)
[2022-08-14 11:10] LABS: CALCIUM 8.4 MG/DL (8.5-10.1)
[2022-08-14 11:12] LABS: TOTAL PROTEIN 6.1 GM/DL (6.4-8.2)
[2022-08-14 11:13] LABS: BILIRUBIN,TOTAL 0.4 MG/DL (0.1-1.0)
[2022-08-14 11:15] LABS: CREATININE SERUM 0.74 MG/DL (0.60-1.30)
[2022-08-21 11:39] LABS: BASOPHILS % (AUTO) 1 % (0-10)
[2022-08-21 11:41] LABS: EOSINOPHILS # (AUTO) 0.1 10^3/uL (0.0-0.3); EOSINOPHILS % (AUTO) 2 % (0-10); HEMATOCRIT 39 % (40-54); LYMPHOCYTES # (AUTO) 1.3 10^3/uL (1.0-4.0); LYMPHOCYTES % (AUTO) 24 % (12-44); MEAN CORPUSCULAR HEMOGLOBIN 33 pg (25-34); MEAN CORPUSCULAR HGB CONC 33 g/dL (32-36); MEAN CORPUSCULAR VOLUME 101 fL (80-99); MEAN PLATELET VOLUME 10.6 fL (9.0-12.2); MONOCYTES # (AUTO) 0.8 10^3/uL (0.0-1.0); MONOCYTES % (AUTO) 15 % (0-12); NEUTROPHILS # (AUTO) 3.3 10^3/uL (1.8-7.8); NEUTROPHILS % (AUTO) 59 % (42-75); PLATELET COUNT 96 10^3/uL (130-400); WHITE BLOOD COUNT 5.5 10^3/uL (4.3-11.0)
[2022-08-21 11:55] LABS: ALBUMIN 3.6 GM/DL (3.2-4.5); BILIRUBIN,TOTAL 0.4 MG/DL (0.1-1.0); CALCIUM 9.4 MG/DL (8.5-10.1); CREATININE SERUM 0.79 MG/DL (0.60-1.30); POTASSIUM 3.9 MMOL/L (3.6-5.0); TOTAL PROTEIN 6.8 GM/DL (6.4-8.2)
[2022-08-23 11:35] LABS: IMMUNOFIX PATH REPORT NUMBER Complete (Complete)
[~2022-08-23 13:29] MED LIST changes: +D5W 500 ML IV SOLUTION 500 ML IV SCH; +D5W IV SCH; +DEXAMETHASONE IV SCH; +HEParin (CENTRAL IV FLUSH) 500 UNIT/5 ML SYR IV PRN; -HOLD METFORMIN - RECEIVED CONTRAST 20 ML VIAL IV SCH; -IOHEXOL 350 MG/ML 100 ML (OMNIPAQUE 350) VIAL IV ONE; +LEUCOVORIN CALCIUM 500 MG, LEUCOVORIN CALCIUM 200 MG, LEUCOVORIN CALCIUM 100 MG in D5W ... IV SCH; +LEUCOVORIN CALCIUM IV SCH; -NS 100 ML (IVPB) BAG IV ONE; +NS IV 500 ML 500 ML ONE; +NS IV SCH; +OXALIPLATIN IV SCH; +PALONOSETRON HCL IV SCH; +PEMBROLIZUMAB 200 MG in NS (IVPB) 50 ML IV SCH; +fluorouraciL 4,800 MG in NS (IVPB) 51.2 ML IV SCH
== END 2022-09-03 | disposition home or self-care (01) ==
LOC: ONC 13:29
PROVIDERS: ATTEND Internal Medicine Hematology & Oncology
DX: Z51.11 Encounter for antineoplastic chemotherapy (principal); Z45.2 Encounter for adjustment and management of vascular access device; C16.0 Malignant neoplasm of cardia; I50.22 Chronic systolic (congestive) heart failure; I25.10 Atherosclerotic heart disease of native coronary artery without angina pectoris; E78.2 Mixed hyperlipidemia; E66.9 Obesity, unspecified; Z72.0 Tobacco use
CPT/HCPCS: 80053; 85025; 96360; 96361; 96375; 96411; 96413; 96415; 96417; 96521; G0463; 36591; 83883; 84155; 84165; 86334

== ENCOUNTER → 2022-09-25 | Outpatient (CLI) | payer OTHER, MEDICARE ==
[~2022-09-25] MED LIST changes: -D5W 500 ML IV SOLUTION 500 ML IV SCH; -D5W IV SCH; -DEXAMETHASONE IV SCH; -HEParin (CENTRAL IV FLUSH) 500 UNIT/5 ML SYR IV PRN; -LEUCOVORIN CALCIUM 500 MG, LEUCOVORIN CALCIUM 200 MG, LEUCOVORIN CALCIUM 100 MG in D5W ... IV SCH; -LEUCOVORIN CALCIUM IV SCH; -NS IV 500 ML 500 ML ONE; -NS IV SCH; -OXALIPLATIN IV SCH; -PALONOSETRON HCL IV SCH; -PEMBROLIZUMAB 200 MG in NS (IVPB) 50 ML IV SCH; -fluorouraciL 4,800 MG in NS (IVPB) 51.2 ML IV SCH
[2022-09-25 12:26] LABS: FREE T4 (FREE THYROXINE) 0.89 NG/DL (0.70-1.48)
== END ==
LOC: LAB 11:17
PROVIDERS: ATTEND Internal Medicine
DX: Z13.6 Encounter for screening for cardiovascular disorders (principal); E03.9 Hypothyroidism, unspecified; I10 Essential (primary) hypertension
CPT/HCPCS: 36415; 80061; 84439; 84443

== ENCOUNTER 2022-10-02 10:58 | Outpatient (RCR) | payer OTHER, MEDICARE ==
[2022-09-04 11:26] LABS: EOSINOPHILS # (AUTO) 0.1 10^3/uL (0.0-0.3); EOSINOPHILS % (AUTO) 3 % (0-10); HEMOGLOBIN 13.6 g/dL (13.3-17.7); MEAN CORPUSCULAR HEMOGLOBIN 34 pg (25-34)
[2022-09-04 11:28] LABS: BASOPHILS % (AUTO) 1 % (0-10); HEMATOCRIT 40 % (40-54); LYMPHOCYTES # (AUTO) 1.1 10^3/uL (1.0-4.0); LYMPHOCYTES % (AUTO) 26 % (12-44); MEAN CORPUSCULAR HGB CONC 34 g/dL (32-36); MEAN CORPUSCULAR VOLUME 101 fL (80-99); MEAN PLATELET VOLUME 10.2 fL (9.0-12.2); MONOCYTES # (AUTO) 0.6 10^3/uL (0.0-1.0); MONOCYTES % (AUTO) 14 % (0-12); NEUTROPHILS # (AUTO) 2.4 10^3/uL (1.8-7.8); NEUTROPHILS % (AUTO) 56 % (42-75); PLATELET COUNT 79 10^3/uL (130-400); WHITE BLOOD COUNT 4.4 10^3/uL (4.3-11.0)
[2022-09-04 11:54] LABS: ALBUMIN 3.7 GM/DL (3.2-4.5); BILIRUBIN,TOTAL 0.7 MG/DL (0.1-1.0); CALCIUM 9.6 MG/DL (8.5-10.1); CREATININE SERUM 0.75 MG/DL (0.60-1.30); POTASSIUM 3.9 MMOL/L (3.6-5.0); TOTAL PROTEIN 6.9 GM/DL (6.4-8.2)
[2022-09-11 11:23] LABS: EOSINOPHILS # (AUTO) 0.1 10^3/uL (0.0-0.3); HEMATOCRIT 40 % (40-54); HEMOGLOBIN 13.4 g/dL (13.3-17.7); MEAN CORPUSCULAR HEMOGLOBIN 34 pg (25-34); MEAN CORPUSCULAR HGB CONC 33 g/dL (32-36); MEAN CORPUSCULAR VOLUME 103 fL (80-99); PLATELET COUNT 121 10^3/uL (130-400)
[2022-09-11 11:25] LABS: BASOPHILS % (AUTO) 1 % (0-10); EOSINOPHILS % (AUTO) 3 % (0-10); LYMPHOCYTES # (AUTO) 1.1 10^3/uL (1.0-4.0); LYMPHOCYTES % (AUTO) 29 % (12-44); MEAN PLATELET VOLUME 10.5 fL (9.0-12.2); MONOCYTES # (AUTO) 0.7 10^3/uL (0.0-1.0); MONOCYTES % (AUTO) 19 % (0-12); NEUTROPHILS # (AUTO) 1.8 10^3/uL (1.8-7.8); NEUTROPHILS % (AUTO) 48 % (42-75); WHITE BLOOD COUNT 3.8 10^3/uL (4.3-11.0)
[2022-09-11 11:42] LABS: ALBUMIN 3.6 GM/DL (3.2-4.5); BILIRUBIN,TOTAL 0.4 MG/DL (0.1-1.0); CALCIUM 9.3 MG/DL (8.5-10.1); CREATININE SERUM 0.86 MG/DL (0.60-1.30); POTASSIUM 4.1 MMOL/L (3.6-5.0); TOTAL PROTEIN 6.5 GM/DL (6.4-8.2)
[2022-09-25 11:44] LABS: MEAN CORPUSCULAR HEMOGLOBIN 35 pg (25-34)
[2022-09-25 11:46] LABS: BASOPHILS # (AUTO) 0.1 10^3/uL (0.0-0.1); BASOPHILS % (AUTO) 1 % (0-10); EOSINOPHILS # (AUTO) 0.2 10^3/uL (0.0-0.3); EOSINOPHILS % (AUTO) 3 % (0-10); HEMATOCRIT 40 % (40-54); HEMOGLOBIN 13.5 g/dL (13.3-17.7); LYMPHOCYTES % (AUTO) 22 % (12-44); MEAN CORPUSCULAR HGB CONC 34 g/dL (32-36); MEAN CORPUSCULAR VOLUME 102 fL (80-99); MEAN PLATELET VOLUME 10.3 fL (9.0-12.2); MONOCYTES # (AUTO) 0.6 10^3/uL (0.0-1.0); MONOCYTES % (AUTO) 13 % (0-12); NEUTROPHILS # (AUTO) 2.7 10^3/uL (1.8-7.8); NEUTROPHILS % (AUTO) 60 % (42-75); PLATELET COUNT 84 10^3/uL (130-400); WHITE BLOOD COUNT 4.5 10^3/uL (4.3-11.0)
[2022-09-25 12:04] LABS: ALBUMIN 3.4 GM/DL (3.2-4.5); BILIRUBIN,TOTAL 0.5 MG/DL (0.1-1.0); CREATININE SERUM 0.9 MG/DL (0.60-1.30); TOTAL PROTEIN 6.3 GM/DL (6.4-8.2)
[~2022-10-02 10:58] MED LIST changes: +D5W 500 ML IV SOLUTION 500 ML IV SCH; +D5W IV SCH; +DEXAMETHASONE IV SCH; +HEParin (CENTRAL IV FLUSH) 500 UNIT/5 ML SYR IV PRN; +LEUCOVORIN CALCIUM IV SCH; +NS IV 1000 ML 1,000 ML ONE; +NS IV SCH; +OXALIPLATIN IV SCH; +PALONOSETRON HCL IV SCH; +PEMBROLIZUMAB 200 MG in NS (IVPB) 50 ML IV SCH; +fluorouraciL 4,800 MG in NS (IVPB) 51.2 ML IV SCH
[2022-10-02 11:23] LABS: BASOPHILS % (AUTO) 1 % (0-10); EOSINOPHILS # (AUTO) 0.1 10^3/uL (0.0-0.3); EOSINOPHILS % (AUTO) 4 % (0-10); HEMATOCRIT 42 % (40-54); HEMOGLOBIN 14.3 g/dL (13.3-17.7); LYMPHOCYTES % (AUTO) 27 % (12-44); MEAN CORPUSCULAR HEMOGLOBIN 35 pg (25-34); MEAN CORPUSCULAR HGB CONC 34 g/dL (32-36); MEAN CORPUSCULAR VOLUME 103 fL (80-99); MEAN PLATELET VOLUME 10.1 fL (9.0-12.2); MONOCYTES # (AUTO) 0.9 10^3/uL (0.0-1.0); MONOCYTES % (AUTO) 24 % (0-12); NEUTROPHILS # (AUTO) 1.6 10^3/uL (1.8-7.8); NEUTROPHILS % (AUTO) 45 % (42-75); PLATELET COUNT 132 10^3/uL (130-400); WHITE BLOOD COUNT 3.6 10^3/uL (4.3-11.0)
[2022-10-02] MEDS ORDERED: NS IV 1000 ML 1,000 ML ONE (11:26)
[2022-10-02 11:40] LABS: ALBUMIN 3.8 GM/DL (3.2-4.5); BILIRUBIN,TOTAL 0.5 MG/DL (0.1-1.0); CALCIUM 9.7 MG/DL (8.5-10.1); CREATININE SERUM 0.85 MG/DL (0.60-1.30); POTASSIUM 3.9 MMOL/L (3.6-5.0); TOTAL PROTEIN 6.8 GM/DL (6.4-8.2)
[2022-10-02] MEDS ORDERED: ONDANSETRON MDV (CANCER CENTER 8 MG in NS (IVPB) 50 ML IV ONE (13:37)
[2022-10-02] MEDS ORDERED: diphenhydrAMINE 50 MG/ML INJ (BENADRYL) ONE (13:55)
[2022-10-02] MEDS ORDERED: NS IV ONE (13:56)
[2022-10-02] MEDS ORDERED: DEXAMETHASONE SODIUM PHOSPHATE IV ONE (13:56)
== END 2022-10-04 | disposition home or self-care (01) ==
LOC: ONC 10:58
PROVIDERS: ATTEND Internal Medicine Hematology & Oncology
DX: Z51.11 Encounter for antineoplastic chemotherapy (principal); C16.0 Malignant neoplasm of cardia; I50.22 Chronic systolic (congestive) heart failure; I25.10 Atherosclerotic heart disease of native coronary artery without angina pectoris; E78.2 Mixed hyperlipidemia; E66.9 Obesity, unspecified; Z72.0 Tobacco use
CPT/HCPCS: 36591; 80053; 85025; 96360; 96375; 96411; 96413; 96415; 96417

== ENCOUNTER → 2022-10-07 | Outpatient (CLI) | payer OTHER, MEDICARE ==
[~2022-10-07] MED LIST changes: -D5W 500 ML IV SOLUTION 500 ML IV SCH; -D5W IV SCH; -DEXAMETHASONE IV SCH; -HEParin (CENTRAL IV FLUSH) 500 UNIT/5 ML SYR IV PRN; +HOLD METFORMIN - RECEIVED CONTRAST 20 ML VIAL IV SCH; +IOHEXOL 350 MG/ML 100 ML (OMNIPAQUE 350) VIAL IV ONE; -LEUCOVORIN CALCIUM IV SCH; +NS 100 ML (IVPB) BAG IV ONE; -NS IV 1000 ML 1,000 ML ONE; -NS IV SCH; -OXALIPLATIN IV SCH; -PALONOSETRON HCL IV SCH; -PEMBROLIZUMAB 200 MG in NS (IVPB) 50 ML IV SCH; -fluorouraciL 4,800 MG in NS (IVPB) 51.2 ML IV SCH
--- NOTE | 2022-10-07 14:52 | Diagnostic Imaging Report ---
INDICATION: Esophageal cancer, followup. TECHNIQUE: Multiple contiguous axial images were obtained through the chest, abdomen, and pelvis after the administration of intravenous contrast. Auto Exposure Controls were utilized during the CT exam to meet ALARA standards for radiation dose reduction. COMPARISON: 08/14/2022. FINDINGS: CT CHEST: There are no enlarged mediastinal or hilar nodes. There are no enlarged axillary nodes. There is a Port-A-Cath over the right chest. There is no pleural or pericardial fluid. The lower esophageal wall thickening appears to be improved compared to 06/05/2022 but about the same as on 08/14/2022. There are diffuse emphysematous changes. The right lower lobe density appears to be smaller and more linear in appearance and may represent scarring. There is no new pulmonary nodule. CT ABDOMEN/PELVIS: Compared to the prior study, scattered low-density lesions in the liver appear to be further decreased compared to 08/14/2022. A lesion in the dome of the right lobe of the liver measures about 2.5 cm and had measured about 3.2 x 2.9 cm. The spleen, adrenals, and pancreas are normal. The kidneys bilaterally appear unremarkable. There is no adenopathy in the retroperitoneum. There is no overt bowel obstruction. There is no pelvic mass or free fluid. There are incidental fat-containing inguinal hernias. Lucent lesions at L1 and L5 appear similar to the previous study. IMPRESSION: CT CHEST: There is improved lower esophageal thickening, compatible with the patient's known primary lesion. There are diffuse emphysematous changes. The right lower lobe density appears smaller and more linear than on the prior study and may represent scarring. There is no new pulmonary nodule or pleural fluid. CT ABDOMEN/PELVIS: There is a further mild decrease in the liver lesions compared to the prior study as above. The lucent lesions at L1 and L5 appear stable compared to the prior study. MRI could be done for further investigation if clinically warranted. Dictated by: Dictated on workstation # [id number]
== END ==
LOC: RAD 10:57
PROVIDERS: ATTEND Internal Medicine Hematology & Oncology
DX: K22.89 Other specified disease of esophagus (principal); J98.4 Other disorders of lung; C15.9 Malignant neoplasm of esophagus, unspecified
CPT/HCPCS: 71260; 74177

== ENCOUNTER 2022-10-31 12:22 | Outpatient (RCR) | payer OTHER, MEDICARE ==
[2022-10-15 11:22] LABS: BASOPHILS # (AUTO) 0.1 10^3/uL (0.0-0.1); BASOPHILS % (AUTO) 1 % (0-10); EOSINOPHILS # (AUTO) 0.3 10^3/uL (0.0-0.3); EOSINOPHILS % (AUTO) 3 % (0-10); HEMATOCRIT 43 % (40-54); HEMOGLOBIN 15.1 g/dL (13.3-17.7); LYMPHOCYTES # (AUTO) 1.6 10^3/uL (1.0-4.0); LYMPHOCYTES % (AUTO) 15 % (12-44); MEAN CORPUSCULAR HEMOGLOBIN 36 pg (25-34); MEAN CORPUSCULAR HGB CONC 35 g/dL (32-36); MEAN CORPUSCULAR VOLUME 103 fL (80-99); MEAN PLATELET VOLUME 9.8 fL (9.0-12.2); MONOCYTES % (AUTO) 9 % (0-12); NEUTROPHILS # (AUTO) 7.6 10^3/uL (1.8-7.8); NEUTROPHILS % (AUTO) 72 % (42-75); PLATELET COUNT 141 10^3/uL (130-400); WHITE BLOOD COUNT 10.6 10^3/uL (4.3-11.0)
[2022-10-15 11:36] LABS: ALBUMIN 3.9 GM/DL (3.2-4.5); BILIRUBIN,TOTAL 0.5 MG/DL (0.1-1.0); CALCIUM 9.4 MG/DL (8.5-10.1); CREATININE SERUM 1.01 MG/DL (0.60-1.30); POTASSIUM 4.2 MMOL/L (3.6-5.0); TOTAL PROTEIN 7.3 GM/DL (6.4-8.2)
[2022-10-22 12:06] LABS: BASOPHILS % (AUTO) 1 % (0-10); EOSINOPHILS # (AUTO) 0.3 10^3/uL (0.0-0.3); EOSINOPHILS % (AUTO) 5 % (0-10); HEMATOCRIT 44 % (40-54); HEMOGLOBIN 15.2 g/dL (13.3-17.7); LYMPHOCYTES # (AUTO) 1.2 10^3/uL (1.0-4.0); LYMPHOCYTES % (AUTO) 18 % (12-44); MEAN CORPUSCULAR HEMOGLOBIN 35 pg (25-34); MEAN CORPUSCULAR HGB CONC 34 g/dL (32-36); MEAN CORPUSCULAR VOLUME 102 fL (80-99); MEAN PLATELET VOLUME 9.7 fL (9.0-12.2); MONOCYTES # (AUTO) 0.6 10^3/uL (0.0-1.0); MONOCYTES % (AUTO) 10 % (0-12); NEUTROPHILS # (AUTO) 4.3 10^3/uL (1.8-7.8); NEUTROPHILS % (AUTO) 66 % (42-75); PLATELET COUNT 131 10^3/uL (130-400); WHITE BLOOD COUNT 6.5 10^3/uL (4.3-11.0)
[2022-10-22 12:27] LABS: ALBUMIN 4.2 GM/DL (3.2-4.5); BILIRUBIN,TOTAL 0.4 MG/DL (0.1-1.0); CALCIUM 9.8 MG/DL (8.5-10.1); CREATININE SERUM 0.9 MG/DL (0.60-1.30); POTASSIUM 4.2 MMOL/L (3.6-5.0); TOTAL PROTEIN 7.6 GM/DL (6.4-8.2)
[2022-10-29 11:33] LABS: HEMOGLOBIN 14.7 g/dL (13.3-17.7); MEAN CORPUSCULAR VOLUME 102 fL (80-99); MONOCYTES # (AUTO) 0.9 10^3/uL (0.0-1.0); PLATELET COUNT 105 10^3/uL (130-400)
[2022-10-29 11:35] LABS: BASOPHILS # (AUTO) 0.1 10^3/uL (0.0-0.1); BASOPHILS % (AUTO) 1 % (0-10); EOSINOPHILS # (AUTO) 0.5 10^3/uL (0.0-0.3); EOSINOPHILS % (AUTO) 6 % (0-10); HEMATOCRIT 43 % (40-54); LYMPHOCYTES # (AUTO) 1.2 10^3/uL (1.0-4.0); LYMPHOCYTES % (AUTO) 15 % (12-44); MEAN CORPUSCULAR HEMOGLOBIN 35 pg (25-34); MEAN CORPUSCULAR HGB CONC 34 g/dL (32-36); MEAN PLATELET VOLUME 9.6 fL (9.0-12.2); MONOCYTES % (AUTO) 11 % (0-12); NEUTROPHILS # (AUTO) 5.4 10^3/uL (1.8-7.8); NEUTROPHILS % (AUTO) 67 % (42-75); WHITE BLOOD COUNT 8.1 10^3/uL (4.3-11.0)
[2022-10-29 11:50] LABS: ALBUMIN 3.9 GM/DL (3.2-4.5); BILIRUBIN,TOTAL 0.4 MG/DL (0.1-1.0); CALCIUM 9.1 MG/DL (8.5-10.1); CREATININE SERUM 1.01 MG/DL (0.60-1.30); TOTAL PROTEIN 7.1 GM/DL (6.4-8.2)
[~2022-10-31 12:22] MED LIST changes: +D5W 500 ML IV SOLUTION 500 ML IV SCH; +D5W IV SCH; +DEXAMETHASONE IV SCH; +HEParin (CENTRAL IV FLUSH) 500 UNIT/5 ML SYR IV PRN; -HOLD METFORMIN - RECEIVED CONTRAST 20 ML VIAL IV SCH; -IOHEXOL 350 MG/ML 100 ML (OMNIPAQUE 350) VIAL IV ONE; +LEUCOVORIN CALCIUM 500 MG, LEUCOVORIN CALCIUM 200 MG, LEUCOVORIN CALCIUM 100 MG in D5W ... IV SCH; +LEUCOVORIN CALCIUM IV SCH; -NS 100 ML (IVPB) BAG IV ONE; +NS IV 500 ML 500 ML ONE; +NS IV SCH; +PALONOSETRON HCL IV SCH; +PEMBROLIZUMAB 200 MG in NS (IVPB) 50 ML IV SCH; +fluorouraciL 4,800 MG in NS (IVPB) 51.2 ML IV SCH
== END 2022-11-03 | disposition home or self-care (01) ==
LOC: ONC 12:22
PROVIDERS: ATTEND Internal Medicine Hematology & Oncology
DX: Z51.11 Encounter for antineoplastic chemotherapy (principal); Z45.2 Encounter for adjustment and management of vascular access device; C16.0 Malignant neoplasm of cardia; I50.22 Chronic systolic (congestive) heart failure; I25.10 Atherosclerotic heart disease of native coronary artery without angina pectoris; E78.2 Mixed hyperlipidemia; E66.9 Obesity, unspecified; Z72.0 Tobacco use
CPT/HCPCS: 36591; 80053; 84443; 85025; 96360; 96361; 96375; 96411; 96413; 96415

== ENCOUNTER → 2022-11-05 | Outpatient (CLI) | payer OTHER, MEDICARE ==
[~2022-11-05] MED LIST changes: -D5W 500 ML IV SOLUTION 500 ML IV SCH; -D5W IV SCH; -DEXAMETHASONE IV SCH; -HEParin (CENTRAL IV FLUSH) 500 UNIT/5 ML SYR IV PRN; -LEUCOVORIN CALCIUM 500 MG, LEUCOVORIN CALCIUM 200 MG, LEUCOVORIN CALCIUM 100 MG in D5W ... IV SCH; -LEUCOVORIN CALCIUM IV SCH; -NS IV 500 ML 500 ML ONE; -NS IV SCH; -PALONOSETRON HCL IV SCH; -PEMBROLIZUMAB 200 MG in NS (IVPB) 50 ML IV SCH; -fluorouraciL 4,800 MG in NS (IVPB) 51.2 ML IV SCH
--- NOTE | 2022-11-05 18:56 | Diagnostic Imaging Report ---
Indication: Left hip pain. Time of Exam: 1:47 PM AP view pelvis 2 views left hip were obtained. Femoral acetabular alignment is normal. Femoral head and neck are intact. No fractures are seen. Rami appear intact. SI joints and symphysis are non-widened. IMPRESSION: No acute bony abnormality is detected. Dictated by: Dictated on workstation # [id number]
== END ==
LOC: RAD 13:26
PROVIDERS: ATTEND Internal Medicine
DX: M25.552 Pain in left hip (principal)
CPT/HCPCS: 36415; 85025

== ENCOUNTER 2022-12-03 09:50 | Outpatient (RCR) | payer OTHER, MEDICARE ==
[2022-11-05 15:48] LABS: BASOPHILS # (AUTO) 0.1 10^3/uL (0.0-0.1); BASOPHILS % (AUTO) 1 % (0-10); EOSINOPHILS # (AUTO) 0.3 10^3/uL (0.0-0.3); EOSINOPHILS % (AUTO) 4 % (0-10); HEMATOCRIT 45 % (40-54); HEMOGLOBIN 15.4 g/dL (13.3-17.7); LYMPHOCYTES % (AUTO) 12 % (12-44); MEAN CORPUSCULAR HEMOGLOBIN 35 pg (25-34); MEAN CORPUSCULAR HGB CONC 35 g/dL (32-36); MEAN CORPUSCULAR VOLUME 102 fL (80-99); MONOCYTES # (AUTO) 0.7 10^3/uL (0.0-1.0); MONOCYTES % (AUTO) 9 % (0-12); NEUTROPHILS # (AUTO) 6.1 10^3/uL (1.8-7.8); NEUTROPHILS % (AUTO) 74 % (42-75); PLATELET COUNT 135 10^3/uL (130-400); WHITE BLOOD COUNT 8.2 10^3/uL (4.3-11.0)
[2022-11-06 12:11] LABS: ALBUMIN 4.2 GM/DL (3.2-4.5); BILIRUBIN,TOTAL 0.5 MG/DL (0.1-1.0); CALCIUM 9.3 MG/DL (8.5-10.1); CREATININE SERUM 1.02 MG/DL (0.60-1.30); POTASSIUM 4.1 MMOL/L (3.6-5.0); TOTAL PROTEIN 7.6 GM/DL (6.4-8.2)
--- NOTE | 2022-11-11 12:09 | Diagnostic Imaging Report ---
INDICATION: Orbital metal exposure AP and lateral views of orbits reveal no intraorbital metallic foreign body. There is opacification of the right maxillary sinus. IMPRESSION: No intraorbital metallic foreign object is seen to preclude MR scan. There is opacification of right maxillary sinus likely due to chronic sinus disease. Dictated by: Dictated on workstation # [id number]
--- NOTE | 2022-11-11 20:51 | Diagnostic Imaging Report ---
PROCEDURE: MRI pelvis with and without contrast. TECHNIQUE: Multiplanar, multisequence MRI of the pelvis was performed with and without contrast. INDICATION: Esophageal cancer. COMPARISON: CT of 08/14/2022 and 10/07/2022. Left hip radiographs of 11/05/2022. FINDINGS: A small lytic lesion that is T2 hyperintense and T1 hypointense is noted in the posterior aspect of the left ilium. This does not appear to have extraosseous extension or involvement of the adjacent left SI joint. There is an additional abnormal lytic lesion within the left lesser trochanter. A moderate amount of edema is present along the distal iliopsoas tendon which is avulsed from the lesser trochanter and surrounded by edema. No additional focal osseous lesions within the pelvis. No avascular necrosis in the femoral heads. Degenerative subchondral edema in the left femoral head and right acetabulum. Moderate to severe osteoarthrosis of both hips is noted. No sacral insufficiency fracture. The bilateral proximal hamstring complexes are intact. Gluteus medius and minimus insertions are intact on both sides. The right distal iliopsoas tendon is intact. Urinary bladder is normal in appearance. No pelvic or inguinal lymphadenopathy. IMPRESSION: 1. Osseous metastases involve the left lesser trochanter and posterior aspect of the left ilium. 2. There is associated avulsion of the left distal iliopsoas tendon insertion on the lesser trochanter. This is either an osseous avulsion that has developed since the radiograph of 11/05/2022 versus a purely soft tissue avulsion as there is no ossific fragment in this region on prior hip radiographs. Repeat radiographs of the left hip are suggested. Dictated by: Dictated on workstation # [id number]
--- NOTE | 2022-11-11 21:07 | Diagnostic Imaging Report ---
PROCEDURE: MRI lumbar spine with and without contrast. TECHNIQUE: Multiplanar, multisequence MRI of the lumbar spine was performed with and without contrast. INDICATION: History of metastatic disease and pain. CORRELATED with a CT 10/07/2022. 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 Likely hemangiomatous changes involving the posterior right paramedian L5 vertebral body posteriorly. These showed no marrow edema or abnormal enhancement. There is however edema and abnormal enhancement at the L3 level at the junction of its right lamina posteriorly with the base of the spinous process. This is suspicious for a metastatic lesion. There is more subtle and equivocal enhancement involving the inferior aspects of the 4th and midportion of the 5th lumbar spinous processes. No pathological fracture. No suspicious or enhancing lumbar vertebral body lesion. Some mild edema and mild enhancement at the L3 pedicle on the right. No acute epidural or intrathecal abnormality. The conus appeared normal. There is a normal dispersal of the nerves of the cauda equina. Mild degenerative disc, endplate and facet changes result in mild biforaminal stenosis at L3-L4 where there is mild canal narrowing. At L4-L5 there is some prominence of the dorsal epidural fat and degenerative changes to the discs and endplates as well as facets with mild to moderate canal stenosis and mild right greater than left foraminal narrowing as well as left greater than right lateral recess stenoses. At the L5-S1 level disc bulge and endplate osteophytes are asymmetric to the left with moderate left and [id number] right foraminal narrowing with moderate left lateral recess stenosis and mild canal stenosis. IMPRESSION: No suspicious lumbar vertebral body lesion with hemangiomas in L5 and L1. However a marrow edema and abnormal enhancement in the posterior elements most notably at L3 at the junction of the right lamina and base of the spinous process is suspicious for metastatic lesion with equivocal findings at the L4 and L5 spinous processes and the right L3 pedicle. No pathological fracture. No extraosseous soft tissue mass. Degenerative disease to the discs, endplates and posterior elements with multilevel benign canal foraminal and recess stenoses as above. Dictated by: Dictated on workstation # [id number]
[2022-11-19 10:22] LABS: BASOPHILS # (AUTO) 0.1 10^3/uL (0.0-0.1); BASOPHILS % (AUTO) 1 % (0-10); EOSINOPHILS # (AUTO) 0.4 10^3/uL (0.0-0.3); EOSINOPHILS % (AUTO) 3 % (0-10); HEMATOCRIT 43 % (40-54); HEMOGLOBIN 15.1 g/dL (13.3-17.7); LYMPHOCYTES # (AUTO) 1.4 10^3/uL (1.0-4.0); LYMPHOCYTES % (AUTO) 13 % (12-44); MEAN CORPUSCULAR HEMOGLOBIN 36 pg (25-34); MEAN CORPUSCULAR HGB CONC 35 g/dL (32-36); MEAN CORPUSCULAR VOLUME 103 fL (80-99); MEAN PLATELET VOLUME 9.3 fL (9.0-12.2); MONOCYTES % (AUTO) 9 % (0-12); NEUTROPHILS # (AUTO) 8.3 10^3/uL (1.8-7.8); NEUTROPHILS % (AUTO) 74 % (42-75); PLATELET COUNT 183 10^3/uL (130-400); WHITE BLOOD COUNT 11.2 10^3/uL (4.3-11.0)
[2022-11-19 10:36] LABS: ALBUMIN 3.8 GM/DL (3.2-4.5); BILIRUBIN,TOTAL 0.4 MG/DL (0.1-1.0); CALCIUM 9.8 MG/DL (8.5-10.1); CREATININE SERUM 1.02 MG/DL (0.60-1.30); POTASSIUM 3.6 MMOL/L (3.6-5.0); TOTAL PROTEIN 6.9 GM/DL (6.4-8.2)
[2022-11-26 10:17] LABS: BASOPHILS # (AUTO) 0.1 10^3/uL (0.0-0.1); BASOPHILS % (AUTO) 1 % (0-10); EOSINOPHILS # (AUTO) 0.4 10^3/uL (0.0-0.3); EOSINOPHILS % (AUTO) 5 % (0-10); HEMATOCRIT 45 % (40-54); HEMOGLOBIN 15.7 g/dL (13.3-17.7); LYMPHOCYTES # (AUTO) 1.3 10^3/uL (1.0-4.0); LYMPHOCYTES % (AUTO) 14 % (12-44); MEAN CORPUSCULAR HEMOGLOBIN 36 pg (25-34); MEAN CORPUSCULAR HGB CONC 35 g/dL (32-36); MEAN CORPUSCULAR VOLUME 102 fL (80-99); MEAN PLATELET VOLUME 9.4 fL (9.0-12.2); MONOCYTES # (AUTO) 0.8 10^3/uL (0.0-1.0); MONOCYTES % (AUTO) 8 % (0-12); NEUTROPHILS # (AUTO) 6.8 10^3/uL (1.8-7.8); NEUTROPHILS % (AUTO) 72 % (42-75); PLATELET COUNT 152 10^3/uL (130-400); WHITE BLOOD COUNT 9.5 10^3/uL (4.3-11.0)
[2022-11-26 10:40] LABS: BILIRUBIN,TOTAL 0.7 MG/DL (0.1-1.0); CALCIUM 9.9 MG/DL (8.5-10.1); CREATININE SERUM 1.18 MG/DL (0.60-1.30); POTASSIUM 4.5 MMOL/L (3.6-5.0); TOTAL PROTEIN 7.3 GM/DL (6.4-8.2)
[~2022-12-03] VITALS: Ht 177.8 cm; Wt 93.5 kg
[~2022-12-03 09:50] MED LIST changes: +D5W 500 ML IV SOLUTION 500 ML IV SCH; +DEXAMETHASONE IV SCH; +FLUOROURACIL IV SCH; +GADOTERATE 0.5 MMOL/ML (CLARISCAN) 20 ML VIAL IV ONE; +HEParin (CENTRAL IV FLUSH) 500 UNIT/5 ML SYR IV PRN; +LEUCOVORIN CALCIUM 500 MG, LEUCOVORIN CALCIUM 200 MG, LEUCOVORIN CALCIUM 100 MG in D5W ... IV SCH; +NS IV 500 ML 500 ML ONE; +NS IV SCH; +PALONOSETRON HCL IV SCH; +PEMBROLIZUMAB 200 MG in NS (IVPB) 50 ML IV SCH; +fluorouraciL 4,800 MG in NS (IVPB) 51.2 ML IV SCH
[2022-12-03 10:34] LABS: BASOPHILS # (AUTO) 0.1 10^3/uL (0.0-0.1); BASOPHILS % (AUTO) 1 % (0-10); EOSINOPHILS # (AUTO) 0.5 10^3/uL (0.0-0.3); EOSINOPHILS % (AUTO) 4 % (0-10); HEMATOCRIT 42 % (40-54); HEMOGLOBIN 14.3 g/dL (13.3-17.7); LYMPHOCYTES # (AUTO) 1.2 10^3/uL (1.0-4.0); LYMPHOCYTES % (AUTO) 10 % (12-44); MEAN CORPUSCULAR HEMOGLOBIN 35 pg (25-34); MEAN CORPUSCULAR HGB CONC 35 g/dL (32-36); MEAN CORPUSCULAR VOLUME 103 fL (80-99); MEAN PLATELET VOLUME 9.9 fL (9.0-12.2); MONOCYTES # (AUTO) 1.2 10^3/uL (0.0-1.0); MONOCYTES % (AUTO) 10 % (0-12); NEUTROPHILS # (AUTO) 8.9 10^3/uL (1.8-7.8); NEUTROPHILS % (AUTO) 74 % (42-75); PLATELET COUNT 158 10^3/uL (130-400); WHITE BLOOD COUNT 11.9 10^3/uL (4.3-11.0)
[2022-12-03 11:08] LABS: ALBUMIN 3.9 GM/DL (3.2-4.5); BILIRUBIN,TOTAL 0.7 MG/DL (0.1-1.0); CREATININE SERUM 1.17 MG/DL (0.60-1.30); POTASSIUM 4.4 MMOL/L (3.6-5.0); TOTAL PROTEIN 7.2 GM/DL (6.4-8.2)
[2022-12-03 11:13] VITALS: BP 113/77
== END 2022-12-04 | disposition home or self-care (01) ==
LOC: ONC 09:50
PROVIDERS: ATTEND Internal Medicine Hematology & Oncology
DX: Z51.11 Encounter for antineoplastic chemotherapy (principal); C15.9 Malignant neoplasm of esophagus, unspecified; T14.8XXA Other injury of unspecified body region, initial encounter
CPT/HCPCS: 36591; 72158; 72197; 80053; 85025; 96375; 96411; 96413

== ENCOUNTER → 2022-12-04 | Outpatient (RCR) | payer OTHER, MEDICARE ==
[~2022-12-04] MED LIST changes: -D5W 500 ML IV SOLUTION 500 ML IV SCH; -DEXAMETHASONE IV SCH; -FLUOROURACIL IV SCH; -GADOTERATE 0.5 MMOL/ML (CLARISCAN) 20 ML VIAL IV ONE; -HEParin (CENTRAL IV FLUSH) 500 UNIT/5 ML SYR IV PRN; -LEUCOVORIN CALCIUM 500 MG, LEUCOVORIN CALCIUM 200 MG, LEUCOVORIN CALCIUM 100 MG in D5W ... IV SCH; -NS IV 500 ML 500 ML ONE; -NS IV SCH; -PALONOSETRON HCL IV SCH; -PEMBROLIZUMAB 200 MG in NS (IVPB) 50 ML IV SCH; +POTA-330 PO; -POTA-51 PO; -fluorouraciL 4,800 MG in NS (IVPB) 51.2 ML IV SCH
== END | disposition home or self-care (01) ==
PROVIDERS: ATTEND Internal Medicine
DX: M25.552 Pain in left hip (principal)

== ENCOUNTER 2022-12-16 09:41 | Outpatient (RCR) | payer OTHER, MEDICARE ==
[2022-12-20] MEDS ORDERED: TRM50T PO (09:01)
[2022-12-20] MEDS ORDERED: PRED10TA22 PO (09:01)
[2022-12-20] MEDS ORDERED: ACHD5005 PO (09:01)
[2022-12-20] MEDS ORDERED: ONDA8TAB13 SL (09:01)
[2022-12-20] MEDS ORDERED: HYDR2TAB30 PO (09:01)
[2022-12-20] MEDS ORDERED: MAGIC MOUTHWASH PO (09:01)
[2022-12-20] MEDS ORDERED: OMEG1CAP58 PO (09:01)
== END 2023-01-03 | disposition home or self-care (01) ==
PROVIDERS: ATTEND Internal Medicine
DX: M25.552 Pain in left hip (principal)

== ENCOUNTER → 2022-12-18 | Outpatient (CLI) | payer OTHER, MEDICARE ==
[~2022-12-18] MED LIST changes: +ACHD5005 PO; +HOLD METFORMIN - RECEIVED CONTRAST 20 ML VIAL IV SCH; +HYDR2TAB30 PO; +IOHEXOL 350 MG/ML 100 ML (OMNIPAQUE 350) VIAL IV ONE; +MAGIC MOUTHWASH MT; +NS 100 ML (IVPB) BAG IV ONE; +OMEG1CAP58 PO; +ONDA8TAB13 SL; +PRED10TA22 PO; +TRM50T PO
--- NOTE | 2022-12-18 11:35 | Diagnostic Imaging Report ---
EXAMINATION: CT chest, abdomen and pelvis with intravenous contrast. TECHNIQUE: Multiple contiguous axial images were obtained through the chest, abdomen and pelvis after the uneventful administration of intravenous contrast. All CT scans use one or more of the following dose optimizing techniques: automated exposure control, MA and/or KvP adjustment based on patient size and exam type or iterative reconstruction. HISTORY: Esophageal cancer COMPARISON: 10/07/2022 FINDINGS: There is no edema or pneumonia. No pleural effusion. No pneumothorax. No suspicious nodules. There is mild to moderate emphysema. There is no axillary or supraclavicular lymphadenopathy. There is no mediastinal lymphadenopathy. Right-sided portacatheter is present with a small amount of thrombus at the insertion site into the right internal jugular vein. Heart size is normal. There are moderate coronary artery calcifications. No pericardial effusion. Ascending aorta measures 4.4 cm and is unchanged. Hepatic metastatic disease is worsened. A segment six lesion measures 3.4 x 3.1 cm, previously 1.1 x 0.9 cm. There are several new lesions in the dome of the liver measuring up to 2.8 x 2.5 cm. A caudate lobe lesion measures 2.2 x 2.2 cm, previously 1.3 x 1.1 cm. There is a new 3.2 x 2.4 cm collimated lesion. Lesions in all segments of the liver. There is no biliary ductal dilation. Gallbladder is normal. Pancreas is normal. Spleen is normal. Adrenal glands are normal. The kidneys are normal. There is no hydronephrosis. Urinary bladder is normal. Bowel is normal in caliber without obstruction or inflammation. No free fluid or air. A 1.4 cm gastrohepatic lymph node previously measured 0.8 cm. Aorta is normal in caliber without aneurysm. There is a new soft tissue lesion in the posterior left proximal femur measuring 4.1 x 4.6 cm with disruption of the posterior cortex. A lytic lesion in L1 is unchanged. A lytic lesion in L5 is unchanged. IMPRESSION: 1. Significant worsening of hepatic metastatic disease with increasing size and number of lesions. 2. Increasing size of the gastrohepatic lymph node. 3. New soft tissue mass in the posterior proximal left femur with disruption of the posterior cortex placing the patient at risk for pathologic fracture. Report was called to [facility] nurse office of Dr. Lindsey by nino at 11:35AM. Dictated by: Dictated on workstation # [id number]
== END ==
LOC: RAD 10:11
PROVIDERS: ATTEND Internal Medicine Hematology & Oncology
DX: C15.9 Malignant neoplasm of esophagus, unspecified (principal); C78.7 Secondary malignant neoplasm of liver and intrahepatic bile duct; R22.42 Localized swelling, mass and lump, left lower limb; R59.0 Localized enlarged lymph nodes
CPT/HCPCS: 71260; 74177

== ENCOUNTER 2022-12-19 15:31 | Outpatient (CLI) | payer OTHER, MEDICARE ==
[~2022-12-19] VITALS: Ht 177.8 cm; Wt 93.4 kg
[~2022-12-19 15:31] MED LIST changes: -ACHD5005 PO; -HYDR2TAB30 PO; -MAGIC MOUTHWASH PO; -OMEG1CAP58 PO; -ONDA8TAB13 SL; -PRED10TA22 PO; -TRM50T PO
[2022-12-20] MEDS ORDERED: MAGIC MOUTHWASH MT (09:01)
[2022-12-20] MEDS ORDERED: HYDR2TAB30 PO (09:01)
[2022-12-20] MEDS ORDERED: ONDA8TAB13 SL (09:01)
[2022-12-20] MEDS ORDERED: OMEG1CAP58 PO (09:01)
[2022-12-20] MEDS ORDERED: PRED10TA22 PO (09:01)
[2022-12-20] MEDS ORDERED: TRM50T PO (09:01)
[2022-12-20] MEDS ORDERED: ACHD5005 PO (09:01)
== END 2022-12-20 10:14 | disposition home or self-care (01) ==
LOC: PREOP 15:31
PROVIDERS: ATTEND Orthopaedic Surgery
DX: Z01.818 Encounter for other preprocedural examination (principal)

== ENCOUNTER → 2022-12-19 | Outpatient (CLI) | payer OTHER, MEDICARE ==
[~2022-12-19] MED LIST changes: -HOLD METFORMIN - RECEIVED CONTRAST 20 ML VIAL IV SCH; -IOHEXOL 350 MG/ML 100 ML (OMNIPAQUE 350) VIAL IV ONE; -NS 100 ML (IVPB) BAG IV ONE
--- NOTE | 2022-12-19 09:12 | Diagnostic Imaging Report ---
EXAMINATION: Left femur radiograph. TECHNIQUE: AP and lateral views of the left femur obtained. HISTORY: MASS OF SOFT TISSUE OF LEFT LOWER LIMB, COMPARISON: CT of the abdomen and pelvis 12/18/2022. FINDINGS: Ostial lysis of the left lesser trochanter and medial cortex of the left femur. No acute fracture. Vascular calcifications noted. The soft tissue mass is better seen on the comparison CT. IMPRESSION: Ostial lysis of the lesser trochanter and medial cortex of the left femur associated with known soft tissue mass. No pathologic fracture identified. Dictated by: Dictated on workstation # [id number]
== END ==
LOC: RAD 08:00
PROVIDERS: ATTEND Internal Medicine Hematology & Oncology
DX: R22.42 Localized swelling, mass and lump, left lower limb (principal); D49.0 Neoplasm of unspecified behavior of digestive system
CPT/HCPCS: 73552

== ENCOUNTER → 2022-12-19 | Outpatient (CLI) | payer OTHER, MEDICARE ==
[~2022-12-19] MED LIST changes: -MAGIC MOUTHWASH MT; +MAGIC MOUTHWASH PO
== END ==
LOC: ORTHO 08:29
PROVIDERS: ATTEND Orthopaedic Surgery
DX: C79.51 Secondary malignant neoplasm of bone (principal)
CPT/HCPCS: 99203

== ENCOUNTER 2022-12-23 07:26 | Inpatient (IN) | payer OTHER, MEDICARE ==
[2022-12-23] VITALS (12 sets, daily range): BP systolic 105–123; BP diastolic 64–87
[~2022-12-23] VITALS: Ht 177 cm; Wt 93.4 kg
[~2022-12-23 07:26] MED LIST changes: +ACHD5005 PO; +HYDR2TAB30 PO; +MAGIC MOUTHWASH PO; +OMEG1CAP58 PO; +ONDA8TAB13 SL; +PRED10TA22 PO; +TRM50T PO
[2022-12-23] MEDS ORDERED: ceFAZolin INJECTION 2,000 MG in NS (IVPB) 50 ML IV ONE (07:45)
[2022-12-23] MEDS ORDERED: LIDOCAINE PF 2% 5 ML (XYLOCAINE) VIAL ONE (08:48)
[2022-12-23] MEDS ORDERED: proPOfol 200 MG/20 ML (DIPRIVAN) VIAL IV ONE (08:48)
[2022-12-23] MEDS: LACTATED RINGERS 1,000 ML IV PRN ×2 (08:55→10:42)
--- NOTE | 2022-12-23 09:33 | Progress Note-Pre Operative ---
Pre-Operative Progress Note Date of Available H&P: Dec 19, 2022 Date H&P Reviewed: Dec 23, 2022 Time H&P Reviewed: 09:30 History & Physical: H&P Reviewed, Patient Examed, No changes noted Pre-Operative Diagnosis: Metastatic Disease Left Femur WILMAR JOSÉ MD Dec 23, 2022 09:33
[2022-12-23] MEDS ORDERED: MIDAZOLAM 2 MG/2 ML (VERSED) VIAL ONE (09:42)
[2022-12-23] MEDS ORDERED: fentaNYL INJ 100 MCG/2 ML AMP ONE (09:42)
[2022-12-23] MEDS ORDERED: ONDANSETRON 4 MG/2 ML (SDV) Z0FRAN ONE (10:08)
[2022-12-23] MEDS ORDERED: PHENYLEPHRINE 100 MCG/ML 10 ML (ANESTHESIA) SYR ONE (10:08)
--- NOTE | 2022-12-23 10:16 | Consultation ---
HPI History of Present Illness: HPI/Chief Complaint Chief complaint: Status post prophylactically pinning of left femur due to esophageal cancer metastasis HPI: This is a 67-year-old male clinic patient of mine who has a past medical history of esophageal cancer with metastasis who presented following a prophylactic pinning of the left femur due to esophageal cancer with metastasis to the area. The pain was causing a disruption in his quality of life. His vit als remained stable and he will be monitored closely for pain. I will check basic labs in the morning and restart his home medicine. Source: patient, family, RN/MD, old records Exam Limitations: clinical condition (Postop anesthesia) Date Seen 12/23/22 Attending Physician Gina Velasquez DO PCP Admitting Physician: Salvador Del Rosario MD Attending Physician: Salvador Del Rosario MD Referring Physician Date of Admission Dec 23, 2022 at 07:26 Home Medications & Allergies Home Medications Reviewed patient Home Medication Reconciliation performed by pharmacy medication reconciliations medical laboratory technician and/or nursing. Patients Allergies have been reviewed. Allergies Allergies Coded Allergies oxaliplatin (Verified Allergy, Intermediate, RASH, ITCHING, VOMITING, 10/02/22) Past Pvuzsij-Jpqrkz-Ypaelj Hx Past Med/Social Hx: Reviewed Nursing Past Med/Soc Hx, Reviewed and Corrections made Patient Social History Marrital Status: Employed/Student: retired Alcohol Use: Denies Use Smoking Status: Former Smoker Former Smoker, Quit: Oct 05, 2013 Type Used: Cigars 2nd Hand Smoke Exposure: Yes (CIGARS CURRENTLY) Recent Foreign Travel: No Contact w/other who traveled: No Recent Hopitalizations: No Seasonal Allergies Seasonal Allergies: No Past Medical History Surgeries: Cardiac Currently Using CPAP: No (NOT REGULARLY) Currently Using BIPAP: Yes Cardiac: Heart Attack, High Cholesterol, Hypertension Neurological: Headaches /Migraines Reproductive: No Sexually Transmitted Disease: No HIV/AIDS: No Gastrointestinal: Gastroesophageal Reflux Musculoskeletal: Degenerate Disk Disease, Arthritis Loss of Vision: Bilateral Hearing Impairment: Denies Cancer: Esophageal Did You Recieve Any Treatments: Yes What Type of Treatment Did You: Chemotherapy Psychosocial: Sleep Difficulties, Anxiety History of Blood Disorders: No Adverse Reaction to Blood Banks: No Review of Systems Constitutional: see HPI, malaise, weakness EENTM: no symptoms reported Respiratory: no symptoms reported Cardiovascular: no symptoms reported Gastrointestinal: no symptoms reported Genitourinary: no symptoms reported Musculoskeletal: joint pain Skin: no symptoms reported Psychiatric/Neurological: No Symptoms Reported All Other Systems Reviewed Negative Unless Noted: Yes Physical Exam Physical Exam Vital Signs Vital Signs - First Documented 12/23/22 08:05 Temp 36.2 Pulse 86 Resp 20 B/P (MAP) 108/73 (85) Pulse Ox 96 O2 Delivery Room Air Capillary Refill : Height, Weight, BMI Height: 5'10.00" Weight: 216lbs. 0.0oz. 97.188154yi; 29.81 BMI Method:Stated General Appearance: No Apparent Distress, WD/WN, Chronically ill Eyes: Bilateral Eye Normal Inspection, Bilateral Eye PERRL HEENT: PERRL/EOMI, Normal ENT Inspection, Pharynx Normal Neck: Full Range of Motion, Normal Inspection, Non Tender, Supple, Carotid Bruit Respiratory: Chest Non Tender, Lungs Clear, Normal Breath Sounds, No Accessory Muscle Use, No Respiratory Distress Cardiovascular: Regular Rate, Rhythm, No Edema, No Gallop, No JVD, No Murmur, Normal Peripheral Pulses Gastrointestinal: Normal Bowel Sounds, No Organomegaly, No Pulsatile Mass, Non Tender, Soft Back: Normal Inspection, No CVA Tenderness, No Vertebral Tenderness Extremity: Normal Capillary Refill, Normal Inspection, Normal Range of Motion (except left leg post op), Non Tender, No Calf Tenderness, No Pedal Edema Neurologic/Psychiatric: Alert, Oriented x3, 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 Assessment/Plan Assessment and Plan Assess & Plan/Chief Complaint Assessment: Status post prophylactic pinning left femur Esophageal cancer with mets Hypertension GERD Anxiety Plan: Pain control PT and OT Home meds Supportive care GINA VELASQUEZ DO Dec 23, 2022 10:16
[2022-12-23] MEDS ORDERED: HYDROmorphone 2 MG/ML VIAL (DILAUDID) ONE (10:31)
[2022-12-23] MEDS ORDERED: SEVOFLURANE (ULTANE) 15 ML INHAL SOLN ONE (11:12)
[2022-12-23] MEDS ORDERED: 1/2 NS IV SOLUTION 1,000 ML IV SCH (11:30)
--- NOTE | 2022-12-23 11:33 | Operative Report - Ortho ---
Operative Report Surgeon (s)/Salvage Cutter (s) Surgeon WILMAR JOSÉ MD Salvage Cutter n/a Pre-Operative Diagnosis Metastatic Disease Left Femur Post-Operative Diagnosis same Operative Report Date of Procedure: Dec 23, 2022 Name of Procedure Performed: Prophylactic Nailing of Left Femur Description & Findings After obtaining informed consent and marking the patient in the preoperative holding area, the patient was administered IV antibiotics and taken to the operating room. Anesthesia was induced. Patient was transferred to the fracture table. Surgical timeout was taken. The left lower extremity was placed in the traction spar and the right leg was placed in the well leg dia. The left lower extremity was prepped and draped in the usual sterile fashion. Incision was made just proximal to the greater trochanter. Blunt dissection was performed down to the tip of the trochanter. A guide wire was placed through a trochanteric entry point. Position of the wire was confirmed using C-arm. An entry reamer was then placed over the guidewire and reamed to the level of the lesser trochanter. A ball tip guide wire with a slight bend at the tip was inserted into the intramedullary canal and passed down to the knee. C-arm demonstrated position of the wire at the knee to be acceptable. Length was measured and it was decided to proceed with a 400 mm nail. Sequential reaming was performed starting with a 10 and reaming to a 13. A long gamma nail with a 125 degree angle measuring 400 mm was selected and assembled on the back table. Nail was inserted through the trochanteric entry point over the guide wire and seated by combination of hand and mallet. Position of the nail was confirmed using C-arm. Ball tip guide wire was removed. A guide wire was placed for the cephalomedullary screw. Version of the wire was obtained on the lateral. Measurement was taken and the reamer was set to 100 mm. Reamer was used over the guidewire and then the cephalomedullary screw was placed. Position of the cephalomedullary screw was confirmed on C-arm. Set screw was then tightened onto the cephalomedullary screw. Attention was then turned to the distal screw and using perfect [place] freehand technique, a 60 mm screw was placed through the distal slot. Final C arm images were obtained, demonstrated appropriate placement of hardware, and were transferred to PACS. Incision sites were irrigated with normal saline. Closed subcutaneously with 2- 0 vicryl and skin was closed with aguila. Dressed with xeroform, 4x4s, ABD, and tape. Patient tolerated the procedure well and was stable to the recovery room. Anesthesia Type General Estimated Blood Loss 150 mL Specimen(s) collected/removed None WILMAR JOSÉ MD Dec 23, 2022 11:33
[2022-12-23] MEDS ORDERED: ONDANSETRON 4 MG/2 ML (SDV) Z0FRAN IVP PRN (11:45)
[2022-12-23] MEDS ORDERED: ALPRAZolam 0.25 MG (XANAX) TAB PO PRN (11:45)
[2022-12-23] MEDS ORDERED: morphine INJ 10 MG/ML 1ML (SYR OR VIAL) IVP ONE (11:45)
[2022-12-23] MEDS ORDERED: HYDROmorphone 2 MG/ML VIAL (DILAUDID) IV ONE (11:45)
[2022-12-23] MEDS ORDERED: NON-FORMULARY MEDICATION 1 EA EA (Ondansetron (Ondansetron Odt) 8 MG) SL PRN (11:45)
[2022-12-23] MEDS ORDERED: morphine INJ 10 MG/ML 1ML (SYR OR VIAL) ONE (11:58)
[2022-12-23] MEDS ORDERED: NON-FORMULARY MEDICATION 1 EA EA ([Magic Mouthwash] 5 ML) MT SCH (13:00)
[2022-12-23] MEDS: HYDROcodone/APAP 5 MG/325 MG (LORTAB) TAB PO PRN (13:09)
[2022-12-23] MEDS ORDERED: ONDANSETRON 4 MG (ZOFRAN) ORAL DISSOLVE TAB SL PRN (13:15)
[2022-12-23] MEDS: GABAPENTIN 300 MG (NEURONTIN) CAP PO SCH ×2 (13:29→19:44)
[2022-12-23] MEDS: HYDROmorphone (DILAUDID) 2 MG TAB PO PRN ×3 (13:29→22:15)
--- NOTE | 2022-12-23 14:29 | Physical Therapy Evaluation ---
PT Evaluation-General Medical Diagnosis Admission Date Dec 23, 2022 at 07:26 Medical Diagnosis: left femur metastatic disease Onset Date: Dec 23, 2022 Therapy Diagnosis Therapy Diagnosis: impaired mobility Height/Weight Height (Feet): 5 Height (Inches): 10.00 Weight (Pounds): 216 Weight (Ounces): 0.0 Precautions Precautions/Isolations: Fall Prevention, Standard Precautions Referral Physician: Miguel Ángel Reason for Referral: Evaluation/Treatment Medical History Pertinent Medical History: CAD, HTN, [place] Additional Medical History metastatic esophageal cancer Current History s/p left femur nailing Reviewed History: Yes Social History Home: Single Level Current Living Status: Alone Entry Into Home: Stairs With Railing PT Steps Into Home: 7 Prior Prior Level of Function SCALE: Activities may be completed with or without assistive devices. 6-Sxsifdwvwj-sheevtx completes the activity by him/herself with no assistance from a helper. 5-Set-up or Clean-up Assistance-helper sets up or cleans up; patient completes activity. [place] assists only prior to or following the activity. 4-Supervision or Touching Assistance-helper provides verbal cues and/or touching/steadying and/or contact guard assistance as patient completes activity. Assistance may be provided throughout the activity or intermittently. 3-Partial/Moderate Assistance-helper does LESS THAN HALF the effort. [place] lifts, holds or supports trunk or limbs, but provides less than half the effort. 2-Substantial/Maximal Assistance-helper does MORE THAN HALF the effort. [place] lifts or holds trunk or limbs and provides more than half the effort. 2-Haxrytttw-peyvca does ALL the effort. Patient does none of the effort to complete the activity. Or, the assistance of 2 or more helpers is required for the patient to complete the activity. If activity was not attempted, code reason: 7-Patient Refused. 9-Not Applicable-not attempted and the patient did not perform the activity before the current illness, exacerbation or injury. 10-Not Attempted due to Environmental Limitations-(lack of equipment, weather restraints, etc.). 88-Not Attempted due to Medical Conditions or Safety Concerns. Bed Mobility: 6 Transfers (B,C,W/C): 6 Gait: 6 Stairs: 6 Indoor Mobility (Ambulation): Independent Stairs: Independent Prior Devices Use: Walker, Other-see list below Prior Device Use: cane PT Evaluation-Current Subjective Patient is very agreeable to participate with therapy. Pain Numeric Pain Scale: 5-Moderate Pain Location: Left Location Body Site: Hip Pain Description: Acute Objective Patient Orientation: Normal For Age Attachments: IV ROM/Strength ROM Lower Extremities bilateral LE WFL Strength Lower Extremities 4/5 grossly bilateral LE all planes Integumentary/Posture Integumentary refer to nursing notes Bowel Incontinence: No Bladder Incontinence: No Posture WFL Neuromuscular (Tone, Coordination, Reflexes) grossly intact Sensory Vision: Wears Glasses Hearing: Functional Transfers Lying to Sitting/Side of Bed(Q: 6 Sit to Stand (QC): 5 Chair/Rwe-we-Kjeba Xfer(QC): 5 Gait Mode of Locomotion: Walk Anticipated Mode of Locomotion: Walk Walk 10 feet (QC): 5 Walk 50 ft with 2 Turns(QC): 5 Walk 150 ft (QC): 5 Distance: 150' Gait Assistive Device: FWW Comments/Gait Description steady, reciprocal pattern Balance Sitting Static: Normal Sitting Dynamic: Normal Standing Static: Normal Standing Dynamic: Normal Assessment/Needs Patient will be seen short term by skilled PT to address functional strength and mobility to improve current LOF to safely return to home at maximum LOF. Rehab Potential: Fair PT Card Brusher Goals Card Brusher Goals PT [facility] Goals Time Frame: Dec 28, 2022 Roll Left & Right (QC): 6 Sit to Lying (QC): 6 Lying-Sitting on Side/Bed(QC): 6 Sit to Stand (QC): 6 Chair/Vdw-cj-Zzqfy Xfer(QC): 6 Toilet Transfer (QC): 6 Walk 10 feet (QC): 6 Walk 50ft with 2 Turns (QC): 6 Walk 150 ft (QC): 6 1 Step (curb) (QC): 4 4 Steps (QC): 4 PT Plan Treatment/Plan Treatment Plan: Continue Plan of Care Treatment Plan: Education, Functional Activity Ezio, Functional Strength, Gait, Safety, Therapeutic Exercise, Transfers Treatment Duration: Dec 28, 2022 Frequency: 11 times per week Estimated Hrs Per Day: .5 hour per day Patient and/or Family Agrees t: Yes Time Time In: 1405 Time Out: 1420 DATE: Dec 23, 2022 Total Billed Treatment Time: 15 Total Billed Treatment 1 visit EVMod 15 min ANNIKA LEE PT Dec 23, 2022 14:29
--- NOTE | 2022-12-23 14:32 | Occupational Therapy Eval ---
OT Evaluation-General/PLF Medical Diagnosis Admission Date Dec 23, 2022 at 07:26 Medical Diagnosis: Metastatic Disease Left Femur Onset Date: Dec 23, 2022 Therapy Diagnosis Therapy Diagnosis: Weakness Height/Weight Height (Feet): 5 Height (Inches): 10.00 Weight (Pounds): 216 Weight (Ounces): 0.0 Precautions Precautions/Isolations: Fall Prevention, Standard Precautions Weight Bear Status Weight Bearing Restriction: Weight Bearing/Tolerated Location Restriction: L LE Referral Referral Reason: Activity Tolerance, Self Care, Evaluation/Treatment Social History Current Living Status: Alone ADL-Prior Level of Function SCALE: Activities may be completed with or without assistive devices. 9-Adrakhypgk-dakzpfy completes the activity by him/herself with no assistance from a helper. 5-Set-up or Clean-up Assistance-helper sets up or cleans up; patient completes activity. [place] assists only prior to or following the activity. 4-Supervision or Touching Assistance-helper provides verbal cues and/or touching/steadying and/or contact guard assistance as patient completes activity. Assistance may be provided throughout the activity or intermittently. 3-Partial/Moderate Assistance-helper does LESS THAN HALF the effort. [place] lifts, holds or supports trunk or limbs, but provides less than half the effort. 2-Substantial/Maximal Assistance-helper does MORE THAN HALF the effort. [place] lifts or holds trunk or limbs and provides more than half the effort. 8-Jrggswovf-pswtjr does ALL the effort. Patient does none of the effort to complete the activity. Or, the assistance of 2 or more helpers is required for the patient to complete the activity. If activity was not attempted, code reason: 7-Patient Refused. 9-Not Applicable-not attempted and the patient did not perform the activity before the current illness, exacerbation or injury. 10-Not Attempted due to Environmental Limitations-(lack of equipment, weather restraints, etc.). 88-Not Attempted due to Medical Conditions or Safety Concerns. Self Care: Independent Functional Cognition: Independent Drive Self: Yes OT Current Status Subjective Agreeable to therapy. Daughter present in room Mental Status/Objective Patient Orientation: Person, Place, Time, Situation Attachments: IV, SCD's Current Glasses/Contacts: Yes Upper Extremity ROM BUE ROM Upper Extremity Coordination INTACT Upper Extremity Strength BUE strength 4/5 ADL-Treatment Eating (QC): 6 Oral Hygiene (QC): 5 Shower/Bathe Self (QC): 7 Upper Body Dressing (QC): 5 Lower Body Dressing (QC): 5 On/Off Footwear (QC): 5 Toileting Hygiene (QC): 5 Education OT Patient Education: Correct positioning, Modified ADL techniques, Progress toward Goal/Update tx plan, Purpose of tx/functional activities, Reviewed precautions, Rehab process, Safety issues, Transfer techniques Teaching Recipient: Patient, Family Teaching Methods: Demonstration, Discussion Response to Teaching: Return Demonstration OT Supervisor 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 2=Patient will verbalize/demonstrate understanding of assistive devices/modifications for ADL. 3=Patient will improve strength/tolerance for activity to enable patient to perform ADL's. OT Education/Plan Problem List/Assessment Assessment: No Skilled OT Needs ID'd Discharge Recommendations Plan/Recommendations: Discontinue OT Therapy Discharge Recommendati: Home & Family Treatment Plan/Plan of Care Patient would benefit from OT for education, treatment and training to promote independence in ADL's, mobility, safety and/or upper extremity function for ADL's. Plan of Care: OTHER (EVAL ONLY) Treatment Duration: Dec 23, 2022 Frequency: 1 time per week Rehab Potential: Good Time Start Time: 14:00 Stop Time: 14:20 DATE: Dec 23, 2022 Total Time Billed (hr/min): 20 Billed Treatment Time EVM 20 min WILSON TAPIA OT Dec 23, 2022 14:32
[2022-12-23] MEDS: SUCRALFATE 1 GM (CARAFATE) TAB PO SCH (16:33)
[2022-12-23] MEDS: VISC LIDOCAINE/ANTACID/DIPHENHYDRAMINE 1:1:1 120 ML PO SCH ×6 (16:34→19:45)
--- NOTE | 2022-12-23 18:09 | Diagnostic Imaging Report ---
Femoral nailing 125 seconds of fluoroscopy time were utilized during orthopedic surgery to the hip. IMPRESSION: Fluoroscopy utilized during orthopedic surgery. Dictated by: Dictated on workstation # [id number]
[2022-12-23] MEDS: DOCUSATE SODIUM 100 MG (COLACE) CAP PO SCH (19:44)
[2022-12-23] MEDS ORDERED: AMITRIPTYLINE 10 MG (ELAVIL) TAB PO SCH (21:00)
[2022-12-24 03:33] VITALS: BP 113/66
[2022-12-24 05:59] LABS: BASOPHILS % (AUTO) 0 % (0-10); EOSINOPHILS # (AUTO) 0.1 10^3/uL (0.0-0.3); EOSINOPHILS % (AUTO) 0 % (0-10); HEMATOCRIT 35 % (40-54); LYMPHOCYTES # (AUTO) 1.1 10^3/uL (1.0-4.0); LYMPHOCYTES % (AUTO) 7 % (12-44); MEAN CORPUSCULAR HEMOGLOBIN 35 pg (25-34); MEAN CORPUSCULAR HGB CONC 34 g/dL (32-36); MEAN CORPUSCULAR VOLUME 103 fL (80-99); MEAN PLATELET VOLUME 10.3 fL (9.0-12.2); MONOCYTES # (AUTO) 1.8 10^3/uL (0.0-1.0); MONOCYTES % (AUTO) 10 % (0-12); NEUTROPHILS # (AUTO) 13.9 10^3/uL (1.8-7.8); NEUTROPHILS % (AUTO) 81 % (42-75); PLATELET COUNT 202 10^3/uL (130-400); WHITE BLOOD COUNT 17.1 10^3/uL (4.3-11.0)
[2022-12-24 06:12] LABS: ALBUMIN 3.2 GM/DL (3.2-4.5); POTASSIUM 3.9 MMOL/L (3.6-5.0)
[2022-12-24 06:15] LABS: TOTAL PROTEIN 6.3 GM/DL (6.4-8.2)
[2022-12-24 06:17] LABS: BILIRUBIN,TOTAL 0.3 MG/DL (0.1-1.0)
[2022-12-24 06:18] LABS: CREATININE SERUM 0.92 MG/DL (0.60-1.30)
[2022-12-24] MEDS: SUCRALFATE 1 GM (CARAFATE) TAB PO SCH (06:27)
[2022-12-24] MEDS: HYDROcodone/APAP 5 MG/325 MG (LORTAB) TAB PO PRN (06:27)
[2022-12-24 06:38] LABS: ANISOCYTOSIS SLIGHT; EOSINOPHILS % (MANUAL) 1 %; LYMPHOCYTES % (MANUAL) 5 %; MONOCYTES % (MANUAL) 10 %; NEUTROPHILS % (MANUAL) 84 %
[2022-12-24] MEDS ORDERED: KCL 20 MEQ TAB (K-DUR) PO SCH (07:00)
[2022-12-24 07:40] VITALS: BP 120/83
[2022-12-24] MEDS: GABAPENTIN 300 MG (NEURONTIN) CAP PO SCH (08:07)
[2022-12-24] MEDS: DOCUSATE SODIUM 100 MG (COLACE) CAP PO SCH (08:07)
[2022-12-24] MEDS: VISC LIDOCAINE/ANTACID/DIPHENHYDRAMINE 1:1:1 120 ML PO SCH ×3 (08:08)
[2022-12-24] MEDS ORDERED: NON-FORMULARY MEDICATION 1 EA EA (Meloxicam 15 MG) PO SCH (09:00)
[2022-12-24] MEDS ORDERED: NON-FORMULARY MEDICATION 1 EA EA (Potassium Chloride 20 MEQ) PO SCH (09:00)
[2022-12-24] MEDS ORDERED: MELOXICAM 7.5 MG (MOBIC) TABLET PO SCH (09:00)
[2022-12-24] MEDS ORDERED: PANTOPRAZOLE 20 MG TABLET (PROTONIX) PO SCH (09:00)
[2022-12-24] MEDS ORDERED: OMEPRAZOLE 20 MG (PriLOSEC) CAP NON-FORMULARY PO SCH (09:00)
--- NOTE | 2022-12-24 09:20 | Discharge Summary ---
Discharge Summary Hospital Course Hospital Course Date of Admission: Dec 23, 2022 at 07:26 Admission Diagnosis : Metastatic Disease Left Femur Family Physician/Provider: Gina Velasquez DO Date of Discharge: 12/24/22 Discharge Diagnosis: [Metastatic Disease Left Femur s/p Prophylactic Nailing] Hospital Course: [On 12/24/22, patient was admitted and underwent left femur prophylactic intramedullary nailing. Tolerated procedure well. Admitted to regular floor. Pain was controlled on the home medication regimen. On POD #1, was able to be mobile and overall pain was better than prior to the procedure. Was ready for discharge.] Labs and Pending Lab Test: Laboratory Tests 12/24/22 05:20: White Blood Count 17.1H, Red Blood Count 3.44L, Hemoglobin 12.0L, Hematocrit 35L , Mean Corpuscular Volume 103H, Mean Corpuscular Hemoglobin 35H, Mean Corpuscular Hemoglobin Concent 34, Red Cell Distribution Width 14.3, Platelet Count 202, Mean Platelet Volume 10.3, Immature Granulocyte % (Auto) 2, Neutrophils (%) (Auto) 81H, Lymphocytes (%) (Auto) 7L, Monocytes (%) (Auto) 10, Eosinophils (%) (Auto) 0, Basophils (%) (Auto) 0, Neutrophils # (Auto) 13.9H, Lymphocytes # (Auto) 1.1, Monocytes # (Auto) 1.8H, Eosinophils # (Auto) 0.1, Basophils # (Auto) 0.0, Immature Granulocyte # (Auto) 0.3H, Neutrophils % (Manual) 84, Lymphocytes % (Manual) 5, Monocytes % (Manual) 10, Eosinophils % (Manual) 1, Anisocytosis SLIGHT, Macrocytosis SLIGHT, Sodium Level 137, Potassium Level 3.9, Chloride Level 103, Carbon Dioxide Level 25, Anion Gap 9, Blood Urea Nitrogen 13, Creatinine 0.92, Estimat Glomerular Filtration Rate 92, BUN/Creatinine Ratio 14, Glucose Level 114H, Calcium Level 9.0, Corrected Calcium 9.6, Total Bilirubin 0.3, Aspartate Amino Transf (AST/SGOT) 31, Alanine Aminotransferase (ALT/SGPT) 19, Alkaline Phosphatase 114, Total Protein 6.3L, Albumin 3.2 Microbiology 12/23/22 MRSA Screen - Final, Complete MRSA not isolated Home Meds Active Reported Tramadol HCl 50 Mg Tablet 50 Mg PO Q6H Prednisone 10 Mg Tab.ds.pk 10 Mg PO DAILY Take 6 tabs(60mg)daily,decrease by 1 tab(10MG)daily. Ondansetron Odt (Ondansetron) 8 Mg Tab.rapdis 8 Mg SL Q4H PRN [place] 3 1,000 mg Softgel (Mesa-3 Fatty Acids/Fish Oil) 300 Mg-1,000 Mg Capsule 1 Each PO TID Dilaudid (Hydromorphone HCl) 2 Mg Tablet 2 Mg PO Q4H 7 Days Hydrocodone-Acetamin 5-325 mg (Hydrocodone/Acetaminophen) 5 Mg-325 Mg Tablet 1 Tab PO Q6H PRN [Magic Mouthwash] 5 Ml MT QID Potassium Chloride 20 Meq Tablet.er 20 Meq PO DAILY NEW MED- STARTED 07-17-2022 #17 DAY SUPPLY Meloxicam 15 Mg Tablet 15 Mg PO DAILY LAST FILLED 04-05-2022 #90/ DAY SUPPLY Sucralfate 1 Gram Tablet 1 Gm PO BIDAC Neurontin (Gabapentin) 300 Mg Capsule 300 Mg PO TID Omeprazole 20 Mg Capsule.dr 20 Mg PO DAILY Amitriptyline HCl 10 Mg Tablet 20 Mg PO HS TAKES 2 (10MG) TABS Atorvastatin Calcium 20 Mg Tablet 20 Mg PO HS ALPRAZolam 0.25 Mg Tablet 0.25 Mg PO Q6H PRN Assessment/Pt Instructions Weightbearing as tolerated on left leg. Walker or cane as needed. Dry dressing daily to incision sites. Okay to get sites wet but do not soak. F/U on 01/08 for staple removal with Dr. Del Rosario. Discharge Instructions Discharge Diet: No Restrictions Discharge Physical Examination Vital Signs Vital Signs Date Time Temp Pulse Resp B/P (MAP) Pulse Ox O2 Delivery O2 Flow Rate FiO2 12/24/22 08:52 95 Room Air 12/24/22 07:40 36.1 76 20 120/83 (95) 12/24/22 06:17 2.00 Extremity: Other (Left Leg: Incisions C/D/I, +DF of ankle, no s/s of DVT) Allergies: Coded Allergies: oxaliplatin (Verified Allergy, Intermediate, RASH, ITCHING, VOMITING, 10/02/22) Discharge Summary Date of Admission Dec 23, 2022 at 07:26 Date of Discharge WILMAR DEL ROSARIO MD Dec 24, 2022 09:19
--- NOTE | 2022-12-24 09:52 | Progress Note ---
Subjective Date Seen by a Provider: Dec 24, 2022 Time Seen by a Provider: 10:00 Subjective/Events-last exam Patient doing a lot better Pain is controlled Discharge is planned Check meds and labs Review of Systems General: Fatigue, Malaise Musculoskeletal: leg pain Objective Exam Last Set of Vital Signs Vital Signs Date Time Temp Pulse Resp B/P (MAP) Pulse Ox O2 Delivery O2 Flow Rate FiO2 12/24/22 08:52 95 Room Air 12/24/22 07:40 36.1 76 20 120/83 (95) 12/24/22 06:17 2.00 Capillary Refill : Less Than 3 Seconds I&O Intake and Output 12/24/22 00:00 Intake Total 3000 ml Output Total 1400 ml Balance 1600 ml Intake Oral 1050 ml IV Total 1950 ml Output Urine Total 1400 ml Daily Weight Change No General: Alert, Oriented X3, Cooperative, No Acute Distress Lungs: Clear to Auscultation, Normal Air Movement Heart: Regular Rate, Normal S1, Normal S2, No Murmurs Psych/Mental Status: Mental Status NL, Mood NL Results Lab Laboratory Tests 12/24/22 05:20: White Blood Count 17.1H, Red Blood Count 3.44L, Hemoglobin 12.0L, Hematocrit 35L , Mean Corpuscular Volume 103H, Mean Corpuscular Hemoglobin 35H, Mean Corpuscular Hemoglobin Concent 34, Red Cell Distribution Width 14.3, Platelet Count 202, Mean Platelet Volume 10.3, Immature Granulocyte % (Auto) 2, Neutrophils (%) (Auto) 81H, Lymphocytes (%) (Auto) 7L, Monocytes (%) (Auto) 10, Eosinophils (%) (Auto) 0, Basophils (%) (Auto) 0, Neutrophils # (Auto) 13.9H, Lymphocytes # (Auto) 1.1, Monocytes # (Auto) 1.8H, Eosinophils # (Auto) 0.1, Basophils # (Auto) 0.0, Immature Granulocyte # (Auto) 0.3H, Neutrophils % (Manual) 84, Lymphocytes % (Manual) 5, Monocytes % (Manual) 10, Eosinophils % (Manual) 1, Anisocytosis SLIGHT, Macrocytosis SLIGHT, Sodium Level 137, Potassium Level 3.9, Chloride Level 103, Carbon Dioxide Level 25, Anion Gap 9, Blood Urea Nitrogen 13, Creatinine 0.92, Estimat Glomerular Filtration Rate 92, BUN/Creatinine Ratio 14, Glucose Level 114H, Calcium Level 9.0, Corrected Calcium 9.6, Total Bilirubin 0.3, Aspartate Amino Transf (AST/SGOT) 31, Alanine Aminotransferase (ALT/SGPT) 19, Alkaline Phosphatase 114, Total Protein 6.3L, Albumin 3.2 Microbiology 12/23/22 MRSA Screen - Final, Complete MRSA not isolated Assessment/Plan Assessment/Plan Assess & Plan/Chief Complaint Assessment: Status post prophylactic pinning left femur Esophageal cancer with mets Hypertension GERD Anxiety Plan: Discharge home MARGARITA HU DO Dec 24, 2022 09:52
[2022-12-24 10:15] VITALS: BP 120/83
--- NOTE | 2022-12-24 14:30 | Anesthesia-General Post-Op ---
General Patient Condition Mental Status/LOC: Same as Preop Cardiovascular: Satisfactory Nausea/Vomiting: Absent Respiratory: Satisfactory Pain: Controlled Complications: Absent Post Op Complications Complications None Follow Up Care/Instructions Patient Instructions None needed. Anesthesia/Patient Condition Patient Condition Patient is already discharged to home but he was doing well this morning prior to his discharge to home. He was seen yesterday in PACU with no complaints, stable vital signs, no apparent adverse anesthesia problems. No complications reported per nursing. JUSTICE RED DO Dec 24, 2022 14:30
== END 2022-12-24 10:15 | disposition home or self-care (01) | DRG 481 ==
LOC: 4TH 07:26 → SURG 07:27 → EDSTATUS 09:25 → 4TH 12:35
PROVIDERS: ADMIT Orthopaedic Surgery; ATTEND Orthopaedic Surgery
PROC: 0QH736Z Insertion of Intramedullary Internal Fixation Device into Left Upper Femur, Percutaneous Approach (ICD-10-PCS; principal; 2022-12-23 09:45)
DX: C79.51 Secondary malignant neoplasm of bone (principal); C15.9 Malignant neoplasm of esophagus, unspecified; I10 Essential (primary) hypertension; K21.9 Gastro-esophageal reflux disease without esophagitis; F41.9 Anxiety disorder, unspecified; Z87.891 Personal history of nicotine dependence; I25.2 Old myocardial infarction; E78.00 Pure hypercholesterolemia, unspecified; G43.909 Migraine, unspecified, not intractable, without status migrainosus; Z92.21 Personal history of antineoplastic chemotherapy
CPT/HCPCS: 36415; 76000; 80053; 85007; 85027; 87081

== ENCOUNTER 2022-12-31 11:27 | Outpatient (RCR) | payer OTHER, MEDICARE ==
[2022-12-10 10:30] VITALS: BP 118/82
[2022-12-10 10:32] LABS: BASOPHILS # (AUTO) 0.1 10^3/uL (0.0-0.1); BASOPHILS % (AUTO) 1 % (0-10); EOSINOPHILS # (AUTO) 0.5 10^3/uL (0.0-0.3); EOSINOPHILS % (AUTO) 6 % (0-10); HEMATOCRIT 40 % (40-54); HEMOGLOBIN 13.8 g/dL (13.3-17.7); LYMPHOCYTES # (AUTO) 1.3 10^3/uL (1.0-4.0); LYMPHOCYTES % (AUTO) 14 % (12-44); MEAN CORPUSCULAR HEMOGLOBIN 36 pg (25-34); MEAN CORPUSCULAR HGB CONC 35 g/dL (32-36); MEAN CORPUSCULAR VOLUME 103 fL (80-99); MEAN PLATELET VOLUME 8.9 fL (9.0-12.2); MONOCYTES % (AUTO) 12 % (0-12); NEUTROPHILS # (AUTO) 5.9 10^3/uL (1.8-7.8); NEUTROPHILS % (AUTO) 67 % (42-75); PLATELET COUNT 155 10^3/uL (130-400); WHITE BLOOD COUNT 8.8 10^3/uL (4.3-11.0)
[2022-12-10 10:51] LABS: ALBUMIN 3.9 GM/DL (3.2-4.5); BILIRUBIN,TOTAL 0.8 MG/DL (0.1-1.0); CALCIUM 9.6 MG/DL (8.5-10.1); CREATININE SERUM 1.09 MG/DL (0.60-1.30); POTASSIUM 4.2 MMOL/L (3.6-5.0); TOTAL PROTEIN 6.9 GM/DL (6.4-8.2)
[2022-12-17 10:15] VITALS: BP 116/81
[2022-12-17 10:55] LABS: BASOPHILS # (AUTO) 0.1 10^3/uL (0.0-0.1); BASOPHILS % (AUTO) 1 % (0-10); EOSINOPHILS # (AUTO) 0.4 10^3/uL (0.0-0.3); EOSINOPHILS % (AUTO) 3 % (0-10); HEMATOCRIT 39 % (40-54); HEMOGLOBIN 13.5 g/dL (13.3-17.7); LYMPHOCYTES # (AUTO) 1.2 10^3/uL (1.0-4.0); LYMPHOCYTES % (AUTO) 9 % (12-44); MEAN CORPUSCULAR HEMOGLOBIN 35 pg (25-34); MEAN CORPUSCULAR HGB CONC 34 g/dL (32-36); MEAN CORPUSCULAR VOLUME 103 fL (80-99); MEAN PLATELET VOLUME 10.1 fL (9.0-12.2); MONOCYTES # (AUTO) 1.3 10^3/uL (0.0-1.0); MONOCYTES % (AUTO) 10 % (0-12); NEUTROPHILS # (AUTO) 10.4 10^3/uL (1.8-7.8); NEUTROPHILS % (AUTO) 77 % (42-75); PLATELET COUNT 138 10^3/uL (130-400); WHITE BLOOD COUNT 13.4 10^3/uL (4.3-11.0)
[2022-12-17 11:17] LABS: ALBUMIN 3.9 GM/DL (3.2-4.5); BILIRUBIN,TOTAL 1.2 MG/DL (0.1-1.0); CALCIUM 9.9 MG/DL (8.5-10.1); CREATININE SERUM 0.99 MG/DL (0.60-1.30); POTASSIUM 4.2 MMOL/L (3.6-5.0); TOTAL PROTEIN 7.1 GM/DL (6.4-8.2)
[~2022-12-31] VITALS: Ht 177.8 cm; Wt 93.4 kg
[~2022-12-31 11:27] MED LIST changes: +D5W 500 ML IV SOLUTION 500 ML IV SCH; +DEXAMETHASONE IV SCH; +FLUOROURACIL IV SCH; +HEParin (CENTRAL IV FLUSH) 500 UNIT/5 ML SYR IV PRN; +LEUCOVORIN CALCIUM 500 MG, LEUCOVORIN CALCIUM 200 MG, LEUCOVORIN CALCIUM 100 MG in D5W ... IV SCH; +NS (IVPB) 250 ML ONE; +NS IV SCH; +PALONOSETRON HCL IV SCH; +PEMBROLIZUMAB 200 MG in NS (IVPB) 50 ML IV SCH
[2022-12-31 11:53] LABS: BASOPHILS # (AUTO) 0.2 10^3/uL (0.0-0.1); BASOPHILS % (AUTO) 1 % (0-10); EOSINOPHILS # (AUTO) 1.2 10^3/uL (0.0-0.3); EOSINOPHILS % (AUTO) 6 % (0-10); HEMATOCRIT 41 % (40-54); HEMOGLOBIN 13.7 g/dL (13.3-17.7); LYMPHOCYTES # (AUTO) 1.5 10^3/uL (1.0-4.0); LYMPHOCYTES % (AUTO) 7 % (12-44); MEAN CORPUSCULAR HEMOGLOBIN 35 pg (25-34); MEAN CORPUSCULAR HGB CONC 33 g/dL (32-36); MEAN CORPUSCULAR VOLUME 106 fL (80-99); MEAN PLATELET VOLUME 9.5 fL (9.0-12.2); MONOCYTES # (AUTO) 1.5 10^3/uL (0.0-1.0); MONOCYTES % (AUTO) 7 % (0-12); NEUTROPHILS % (AUTO) 78 % (42-75); PLATELET COUNT 216 10^3/uL (130-400); WHITE BLOOD COUNT 20.7 10^3/uL (4.3-11.0)
[2022-12-31 12:11] LABS: ALBUMIN 3.8 GM/DL (3.2-4.5); BILIRUBIN,TOTAL 0.5 MG/DL (0.1-1.0); CALCIUM 9.9 MG/DL (8.5-10.1); CREATININE SERUM 0.89 MG/DL (0.60-1.30); TOTAL PROTEIN 7.5 GM/DL (6.4-8.2)
== END 2023-01-03 | disposition home or self-care (01) ==
LOC: ONC 11:27
PROVIDERS: ATTEND Internal Medicine Hematology & Oncology
DX: Z51.11 Encounter for antineoplastic chemotherapy (principal); Z45.2 Encounter for adjustment and management of vascular access device; C16.0 Malignant neoplasm of cardia; E78.2 Mixed hyperlipidemia; I25.10 Atherosclerotic heart disease of native coronary artery without angina pectoris; I50.22 Chronic systolic (congestive) heart failure; E66.9 Obesity, unspecified
CPT/HCPCS: 36591; 80053; 85025; 96413

== ENCOUNTER 2023-01-02 21:57 | Emergency (ER) | payer OTHER, MEDICARE ==
[~2023-01-02] VITALS: Ht 177.8 cm; Wt 93.4 kg
[~2023-01-02 21:57] MED LIST changes: -D5W 500 ML IV SOLUTION 500 ML IV SCH; -DEXAMETHASONE IV SCH; -FLUOROURACIL IV SCH; -HEParin (CENTRAL IV FLUSH) 500 UNIT/5 ML SYR IV PRN; -LEUCOVORIN CALCIUM 500 MG, LEUCOVORIN CALCIUM 200 MG, LEUCOVORIN CALCIUM 100 MG in D5W ... IV SCH; -NS (IVPB) 250 ML ONE; -NS IV SCH; -PALONOSETRON HCL IV SCH; -PEMBROLIZUMAB 200 MG in NS (IVPB) 50 ML IV SCH
[2023-01-02 22:17] VITALS: BP 128/88
== END 2023-01-02 23:20 | disposition left against medical advice (07) ==
LOC: EDUNIT# 21:57 → ER 21:59
DX: R52 Pain, unspecified (principal)

== ENCOUNTER → 2023-01-08 | Outpatient (CLI) | payer OTHER, MEDICARE | LOC: ORTHO 09:42 | PROVIDERS: ATTEND Orthopaedic Surgery | DX: Z47.89 Encounter for other orthopedic aftercare (principal) ==

== ENCOUNTER 2023-01-09 10:41 | Emergency (ER) | payer OTHER, MEDICARE ==
[2023-01-09 10:50] VITALS: BP 111/68
--- NOTE | 2023-01-09 10:58 | ED General ---
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 The patient was admitted to [facility] over the weekend for pain control. He typically was receiving morphine IV for pain. He went home with a prescription for 2 to 4 mg of Dilaudid every 2-3 hours as needed. He took 4 mg every 3 hours, and ran out of it sooner than expected. He contacted the palliative care team, and they are writing a prescription, but they recommended he come to the ER to get pain control in the meantime. He was actually on his way to [place] to get palliative radiation on his hip. He is otherwise denying any new concerns. Allergies and Home Medications Allergies Coded Allergies: oxaliplatin (Verified Allergy, Intermediate, RASH, ITCHING, VOMITING, 10/02/22) Patient Home Medication List Home Medication List Reviewed: Yes ALPRAZolam (ALPRAZolam) 0.25 Mg Tablet, 0.25 MG PO Q6H PRN for ANXIETY, (Reported) Entered as Reported by: LOLA RAYMUNDO on 05/15/22 0947 Amitriptyline HCl (Amitriptyline HCl) 10 Mg Tablet, 20 MG PO HS, (Reported) Entered as Reported by: LOLA RAYMUNDO on 05/15/22 0947 Gabapentin (Neurontin) 300 Mg Capsule, 300 MG PO TID, (Reported) Entered as Reported by: CHIKIS ARMENDARIZ on 07/18/22 1505 Hydrocodone/Acetaminophen (Hydrocodone-Acetamin 5-325 mg) 5 Mg-325 Mg Tablet, 1 TAB PO Q6H PRN for PAIN-MODERATE (5-7), (Reported) Entered as Reported by: Lata Krueger on 12/20/22 09 Hydromorphone HCl (Dilaudid) 2 Mg Tablet, 2 MG PO Q4H PRN for PAIN-SEVERE (8- 10), (Reported) Entered as Reported by: Lata Krueger on 12/20/22 0901 Meloxicam (Meloxicam) 15 Mg Tablet, 15 MG PO DAILY, (Reported) Entered as Reported by: CHIKIS ARMENDARIZ on 07/18/22 1505 Omeprazole (Omeprazole) 20 Mg Capsule.dr, 20 MG PO DAILY, (Reported) Entered as Reported by: LOLA RAYMUNDO on 05/15/22 0947 Ondansetron (Ondansetron Odt) 8 Mg Tab.rapdis, 8 MG SL Q4H PRN for NAUSEA/VOMITING, (Reported) Entered as Reported by: Lata Krueger on 12/20/22 09 Potassium Chloride (Potassium Chloride) 20 Meq Tablet.er, 20 MEQ PO DAILY, (Reported) Entered as Reported by: CHIKIS ARMENDARIZ on 07/18/22 1505 Sucralfate (Sucralfate) 1 Gram Tablet, 1 GM PO BIDAC, (Reported) Entered as Reported by: CHIKIS ARMENDARIZ on 07/18/22 1505 Tramadol HCl (Tramadol HCl) 50 Mg Tablet, 50 MG PO Q6H PRN for PAIN-MODERATE (5- 7), (Reported) Entered as Reported by: Lata Krueger on 12/20/22 09 [Magic Mouthwash] , 5 ML PO QID PRN for MOUTH/THROAT PAIN, (Reported) Entered as Reported by: Lata Krueger on 12/20/22 09 Review of Systems Review of Systems Constitutional: No fever EENTM: no symptoms reported Respiratory: no symptoms reported Musculoskeletal: see HPI Past Ylgitbf-Rcfevq-Kxnner Hx Immunizations Up To Date First/Initial COVID19 Vaccinat: 2020 Second COVID19 Vaccination Alan: 2020 Third COVID19 Vaccination Date: NONE Seasonal Allergies Seasonal Allergies: No Past Medical History Surgery/Hospitalization HX: ESOPHAGEAL CA W/ METS PORT PLACEMENT Surgeries: Yes (INGUINAL Hernia Surgery, CARDIAC STENT) Cardiac Respiratory: Yes Sleep Apnea Currently Using CPAP: Yes Currently Using BIPAP: Yes Cardiac: Yes (STENT 8/9 YEARS AGO) Heart Attack, High Cholesterol, Hypertension Neurological: Yes Headaches /Migraines Reproductive Disorders: No Sexually Transmitted Disease: No HIV/AIDS: No Genitourinary: No Gastrointestinal: Yes (HX HEP A YEARS AGO, DSYPHAGIA, HERNIAS) Gastroesophageal Reflux Musculoskeletal: No (L3) Degenerate Disk Disease, Arthritis Endocrine: No HEENT: No Loss of Vision: Bilateral Hearing Impairment: Denies Cancer: Yes (ESOPHAGEAL) Esophageal Did You Recieve Any Treatments: Yes What Type of Treatment Did You: Chemotherapy Psychosocial: Yes (ONLY HOSPITAL RELATED) Sleep Difficulties, Anxiety Integumentary: No Blood Disorders: No Adverse Reaction/Blood Tranf: No Physical Exam Vital Signs Vital Signs - First Documented 01/09/23 10:50 Temp 36.1 Pulse 103 Resp 16 B/P (MAP) 111/68 (82) Pulse Ox 95 O2 Delivery Room Air Capillary Refill : Height, Weight, BMI Height: 5'10.00" Weight: 216lbs. 0.0oz. [id number]; 29.00 BMI Method:Stated General Appearance: No Apparent Distress, WD/WN Eyes: Bilateral Eye Normal Inspection HEENT: PERRL/EOMI, Normal ENT Inspection, Pharynx Normal Neck: Full Range of Motion, Normal Inspection, Non Tender, Supple Respiratory: Chest Non Tender, Lungs Clear, Normal Breath Sounds, No Accessory Muscle Use, No Respiratory Distress Cardiovascular: Regular Rate, Rhythm, No Edema, Normal Peripheral Pulses Gastrointestinal: Normal Bowel Sounds, Non Tender, Soft Extremity: Other (Left hip pain to palpation) Neurologic/Psychiatric: Alert, No Motor/Sensory Deficits, Normal Mood/Affect Skin: Normal Color, Warm/Dry Progress/Results/Core Measures Suspected Sepsis SIRS Temperature: Pulse: Respiratory Rate: Blood Pressure / Mean: Results/Orders My Orders Orders - KRISTEN NEGRON MD Hydromorphone Injection (Dilaudid Inject (01/09/23 11:00) Alprazolam Tablet (Xanax Tablet) (01/09/23 11:03) Medications Given in ED Current Medications Medications Dose Ordered Sig/Thien Route Start Time Stop Time Status Last Admin Dose Admin Hydromorphone HCl 2 mg ONCE ONCE IV 01/09/23 11:00 01/09/23 11:01 DC 01/09/23 10:57 2 MG Vital Signs/I&O 01/09/23 10:50 Temp 36.1 Pulse 103 Resp 16 B/P (MAP) 111/68 (82) Pulse Ox 95 O2 Delivery Room Air Capillary Refill : Progress Note : Progress Note 67-year-old male with above history coming in due to cancer related pain. ABCs were intact and vitals were stable on presentation. Physical exam with left hip pain. The patient takes 4 mg of p.o. Dilaudid every 3 hours. A slightly higher dose would be 2 mg of IV Dilaudid with the conversion. We will start an IV and give him this dose to try to get pain control and time for him to get a refill on his prescription. On reassessment after the IV Dilaudid, his pain had been better controlled. His palliative care physician had doubled the dose of his Dilaudid and his fentanyl patch and sent him in to his pharmacy today. They will go pick this up right now. I discussed hospice with the family, and they have an appointment again with the palliative care physician next week. I be lieve he is otherwise stable for discharge with outpatient follow-up. He was sent home with strict return precautions. Departure Impression Primary Impression: Cancer related pain Additional Impression: Metastasis from esophageal cancer Disposition: HOME, SELF-CARE Condition: Stable Departure-Patient Inst. Decision time for Depature: 11:15 Referrals: WILMAR JOSÉ MD (PCP) Primary Care Physician Patient Instructions: Bone metastases Add. Discharge Instructions: Please follow back up with the palliative care physician in regards to the pain medication. Work/School Note: Family Work Note Patient Received Medical Care In the Emergency Department On: Jan 09, 2023 Patient Will Be Able to Return to Work/School On: Jan 10, 2023 KRISTEN ENGRON MD Jan 09, 2023 10:57
[2023-01-09] MEDS ORDERED: HYDROmorphone 2 MG/ML VIAL (DILAUDID) IV ONE (11:00)
[2023-01-09] MEDS ORDERED: ALPRAZolam 0.5 MG (XANAX) TAB PO STA (11:03)
== END 2023-01-09 11:39 | disposition home or self-care (01) ==
LOC: EDUNIT# 10:41 → ER FS 10:43
DX: C15.9 Malignant neoplasm of esophagus, unspecified (principal); M25.552 Pain in left hip; G47.30 Sleep apnea, unspecified; Z99.89 Dependence on other enabling machines and devices

== ENCOUNTER 2023-01-19 20:48 | Emergency (ER) | payer OTHER, MEDICARE ==
[2023-01-19 20:54] VITALS: BP 117/64
[2023-01-19] MEDS ORDERED: NS IV 1000 ML 1,000 ML IV STA (21:09)
[2023-01-19] MEDS ORDERED: HYDROmorphone 2 MG/ML VIAL (DILAUDID) IV ONE ×2 (21:15→22:45)
[2023-01-19] MEDS ORDERED: PANTOPRAZOLE 40 MG (PROTONIX) VIAL IV ONE (21:15)
--- NOTE | 2023-01-19 21:17 | ED Abdominal Pain ---
General Stated Complaint: STAGE 4 CANCER| RADIATION TREATMENT EFREN History of Present Illness Date Seen by Provider: Jan 19, 2023 Time Seen by Provider: 20:50 Initial Comments 67-year-old male with PMH of esophageal carcinoma with mets to the liver and hip, recent hip surgery in December and is now walking with a walker, is here with complaints of severe abdominal pain which began today evening. Patient rates the pain as 8/10. Patient is on a lot of pain medications for his cancer pain which includes a fentanyl patch and Dilaudid 4 mg which has been tapered down to every 12 hours as needed. Patient took the 4 mg Dilaudid approximately 20 minutes prior to coming to the ER. Denies diarrhea, nausea and vomiting, chest pain, palpitations, shortness of breath, URI symptoms, known sick contacts. Last meal was at 5pm, and he was able to keep his meal down and eat without any difficulty. Pt had sausage and gravy for dinner. Allergies and Home Medications Allergies Coded Allergies: oxaliplatin (Verified Allergy, Intermediate, RASH, ITCHING, VOMITING, 10/02/22) Patient Home Medication List Home Medication List Reviewed: Yes ALPRAZolam (ALPRAZolam) 0.25 Mg Tablet, 0.25 MG PO Q6H PRN for ANXIETY, (Reported) Entered as Reported by: LOLA RAYMUNDO on 05/15/22 09 Amitriptyline HCl (Amitriptyline HCl) 10 Mg Tablet, 20 MG PO HS, (Reported) Entered as Reported by: LOLA RAYMUNDO on 05/15/22 09 Gabapentin (Neurontin) 300 Mg Capsule, 300 MG PO TID, (Reported) Entered as Reported by: CHIKIS ARMENDARIZ on 07/18/22 1505 Hydrocodone/Acetaminophen (Hydrocodone-Acetamin 5-325 mg) 5 Mg-325 Mg Tablet, 1 TAB PO Q6H PRN for PAIN-MODERATE (5-7), (Reported) Entered as Reported by: Lata Krueger on 12/20/22 09 Hydromorphone HCl (Dilaudid) 2 Mg Tablet, 2 MG PO Q4H PRN for PAIN-SEVERE (8- 10), (Reported) Entered as Reported by: Lata Krueger on 12/20/22 09 Meloxicam (Meloxicam) 15 Mg Tablet, 15 MG PO DAILY, (Reported) Entered as Reported by: CHIKIS ARMENDARIZ on 07/18/22 1505 Omeprazole (Omeprazole) 20 Mg Capsule.dr, 20 MG PO DAILY, (Reported) Entered as Reported by: LOLA RAYMUNDO on 05/15/22 0947 Ondansetron (Ondansetron Odt) 8 Mg Tab.rapdis, 8 MG SL Q4H PRN for NAUSEA/VOMITING, (Reported) Entered as Reported by: Lata Krueger on 12/20/22 09 Potassium Chloride (Potassium Chloride) 20 Meq Tablet.er, 20 MEQ PO DAILY, (Reported) Entered as Reported by: CHIKIS ARMENDARIZ on 07/18/22 1505 Sucralfate (Sucralfate) 1 Gram Tablet, 1 GM PO BIDAC, (Reported) Entered as Reported by: CHIKIS ARMENDARIZ on 07/18/22 1505 Tramadol HCl (Tramadol HCl) 50 Mg Tablet, 50 MG PO Q6H PRN for PAIN-MODERATE (5- 7), (Reported) Entered as Reported by: Laat Krueger on 12/20/22 0901 [Magic Mouthwash] , 5 ML PO QID PRN for MOUTH/THROAT PAIN, (Reported) Entered as Reported by: Lata Krueger on 12/20/22 09 Review of Systems Review of Systems Constitutional: no symptoms reported EENTM: No Symptoms Reported Respiratory: No Symptoms Reported Cardiovascular: No Symptoms Reported Gastrointestinal: Abdominal Pain Genitourinary: No Symptoms Reported Musculoskeletal: no symptoms reported Skin: no symptoms reported Psychiatric/Neurological: No Symptoms Reported Endocrine: No Symptoms Reported Hematologic/Lymphatic: No Symptoms Reported Past Nzybbed-Zcndqf-Hdrorf Hx Immunizations Up To Date First/Initial COVID19 Vaccinat: 2020 Second COVID19 Vaccination Alan: 2020 Third COVID19 Vaccination Date: NONE Seasonal Allergies Seasonal Allergies: No Past Medical History Surgery/Hospitalization HX: ESOPHAGEAL CA W/ METS PORT PLACEMENT Surgeries: Yes (INGUINAL Hernia Surgery, CARDIAC STENT) Cardiac Respiratory: Yes Sleep Apnea Currently Using CPAP: Yes Currently Using BIPAP: Yes Cardiac: Yes (STENT 8/9 YEARS AGO) Heart Attack, High Cholesterol, Hypertension Neurological: Yes Headaches /Migraines Reproductive Disorders: No Sexually Transmitted Disease: No HIV/AIDS: No Genitourinary: No Gastrointestinal: Yes (HX HEP A YEARS AGO, DSYPHAGIA, HERNIAS) Gastroesophageal Reflux Musculoskeletal: No (L3) Degenerate Disk Disease, Arthritis Endocrine: No HEENT: No Loss of Vision: Bilateral Hearing Impairment: Denies Cancer: Yes (ESOPHAGEAL) Esophageal Did You Recieve Any Treatments: Yes What Type of Treatment Did You: Chemotherapy Psychosocial: Yes (ONLY HOSPITAL RELATED) Sleep Difficulties, Anxiety Integumentary: No Blood Disorders: No Adverse Reaction/Blood Tranf: No Physical Exam Vital Signs Vital Signs - First Documented 01/19/23 20:54 Temp 37.0 Pulse 98 Resp 18 B/P (MAP) 117/64 (81) Capillary Refill : Height/Weight/BMI Height: 5'10.00" Weight: 216lbs. 0.0oz. 97.786771ns; 29.00 BMI Method:Stated General Appearance: moderate distress HEENT: PERRL/EOMI, normal ENT inspection Neck: full range of motion Respiratory: lungs clear, normal breath sounds, no respiratory distress Cardiovascular: regular rate, rhythm Gastrointestinal: normal bowel sounds, soft, tenderness (Severe tenderness over the epigastric region) Extremities: normal range of motion Back: normal inspection, no CVA tenderness Neurologic/Psychiatric: alert, oriented x 3 Skin: normal color Focused Exam Lactate Level 01/19/23 21:55: Lactic Acid Level 2.74*H Lactic Acid Level Laboratory Tests Test 01/19/23 21:55 Lactic Acid Level 2.74 MMOL/L (0.50-2.00) *H Progress/Results/Core Measures Results/Orders Lab Results Laboratory Tests Test 01/19/23 21:55 01/19/23 22:10 Range/Units White Blood Count 5.4 4.3-11.0 10^3/uL Red Blood Count 4.30-5.52 10^6/uL Hemoglobin 13.3-17.7 g/dL Hematocrit 40-54 % Mean Corpuscular Volume 80-99 fL Mean Corpuscular Hemoglobin 25-34 pg Mean Corpuscular Hemoglobin Concent 32-36 g/dL Red Cell Distribution Width 10.0-14.5 % Platelet Count 130-400 10^3/uL Mean Platelet Volume 9.0-12.2 fL Immature Granulocyte % (Auto) 5 % Neutrophils (%) (Auto) 84 H 42-75 % Lymphocytes (%) (Auto) 12-44 % Monocytes (%) (Auto) 0-12 % Eosinophils (%) (Auto) 0-10 % Basophils (%) (Auto) 0-10 % Neutrophils # (Auto) 1.8-7.8 X 10^3 Lymphocytes # (Auto) 1.0-4.0 X 10^3 Monocytes # (Auto) 0.0-1.0 X 10^3 Eosinophils # (Auto) 0.0-0.3 10^3/uL Basophils # (Auto) 0.0-0.1 10^3/uL Sodium Level 135 135-145 MMOL/L Potassium Level 4.2 3.6-5.0 MMOL/L Chloride Level 101 98-107 MMOL/L Carbon Dioxide Level 19 L 21-32 MMOL/L Anion Gap 15 H 5-14 MMOL/L Blood Urea Nitrogen 8 7-18 MG/DL Creatinine 0.78 0.60-1.30 MG/DL Estimat Glomerular Filtration Rate 98 BUN/Creatinine Ratio 10 Glucose Level 88 70-105 MG/DL Lactic Acid Level 2.74 *H 0.50-2.00 MMOL/L Calcium Level 8.8 8.5-10.1 MG/DL Corrected Calcium 9.9 8.5-10.1 MG/DL Magnesium Level 1.7 1.6-2.4 MG/DL Total Bilirubin 0.6 0.1-1.0 MG/DL Aspartate Amino Transf (AST/SGOT) 97 H 5-34 U/L Alanine Aminotransferase (ALT/SGPT) 34 0-55 U/L Alkaline Phosphatase 162 H 40-136 U/L Troponin I < 0.30 <0.30 NG/ML Total Protein 5.4 L 6.4-8.2 GM/DL Albumin 2.6 L 3.2-4.5 GM/DL Lipase 8 8-78 U/L Urine Color YELLOW Urine Clarity CLEAR Urine pH 6.0 5-9 Urine Specific [place] 1.010 L 1.016-1.022 Urine Protein NEGATIVE NEGATIVE Urine Glucose (UA) NEGATIVE NEGATIVE Urine Ketones 1+ H NEGATIVE Urine Nitrite NEGATIVE NEGATIVE Urine Bilirubin NEGATIVE NEGATIVE Urine Urobilinogen 0.2 < = 1.0 MG/DL Urine Leukocyte Esterase NEGATIVE NEGATIVE Urine RBC (Auto) TRACE-I H NEGATIVE Urine RBC 2-5 H /HPF Urine WBC NONE /HPF Urine Squamous Epithelial Cells 0-2 /HPF Urine Crystals NONE /LPF Urine Bacteria NEGATIVE /HPF Urine Casts NONE /LPF Urine Mucus NEGATIVE /LPF Urine Culture Indicated NO My Orders Orders - TONY COFFEY MD Chest 1 View Ap/Pa Only (01/19/23 20:55) Cbc With Automated Diff (01/19/23 21:04) Comprehensive Metabolic Panel (01/19/23 21:04) Lactic Acid Analyzer (01/19/23 21:04) Lipase (01/19/23 21:04) Magnesium (01/19/23 21:04) Ua Culture If Indicated (01/19/23 21:04) Blood Culture (01/19/23 21:04) Troponin I Fs (01/19/23 21:04) Hydromorphone Injection (Dilaudid Inject (01/19/23 21:15) Pantoprazole Injection (Protonix Injecti (01/19/23 21:15) Ed Iv/Invasive Line Start (01/19/23 21:09) Ns Iv 1000 Ml (Sodium Chloride 0.9%) (01/19/23 21:09) Ct Abdomen/Pelvis W (01/19/23 21:18) Iohexol Injection (Omnipaque 350 Mg/Ml 1 (01/19/23 22:15) Received Contrast (Hold Metformin- Contr (01/19/23 22:15) Ns (Ivpb) (Sodium Chloride 0.9% Ivpb Bag (01/19/23 22:15) Hydromorphone Injection (Dilaudid Inject (01/19/23 22:45) Medications Given in ED Current Medications Medications Dose Ordered Sig/Thien Route Start Time Stop Time Status Last Admin Dose Admin Hydromorphone HCl 1 mg ONCE ONCE IV 01/19/23 21:15 01/19/23 21:16 DC 01/19/23 21:20 1 MG Hydromorphone HCl 1 mg ONCE ONCE IV 01/19/23 22:45 01/19/23 22:46 DC 01/19/23 22:41 1 MG Iohexol 80 ml ONCE ONCE IV 01/19/23 22:15 01/19/23 22:16 DC 01/19/23 22:58 80 ML Pantoprazole 40 mg ONCE ONCE IV 01/19/23 21:15 01/19/23 21:16 DC 01/19/23 21:20 40 MG Sodium Chloride 100 ml ONCE ONCE IV 01/19/23 22:15 01/19/23 22:16 DC 01/19/23 22:58 100 ML Vital Signs/I&O 01/19/23 20:54 Temp 37.0 Pulse 98 Resp 18 B/P (MAP) 117/64 (81) Progress Progress Note : Progress Note 1. ABDOMINAL PAIN: - CXR: no acute changes - CT ABD: 1) Multiple low attenuating lesions throughout the liver, too numerous to count measuring up to 7 mm, characteristic of metastatic disease. 2) Postoperative changes in the left femur. There is irregularity along the left lesser trochanter, this may be secondary to prior femur fracture, however, a pathological fracture cannot be excluded. 3) Scattered sigmoid diverticuli without evidence of acute diverticulitis. 4) Mild wall thickening of the distal esophagus, may be secondary to incomplete distention, however infectious inflammatory process cannot be excluded. Recommend correlation with direct visualization if clinically warranted (endoscopy). - CBC: blood sample has clotted but WBC is low - CMP: Alk phos is elevated 162 and this is likely due to the liver meta stasis - Lipase:negative - Troponon: undetectable - Lactic acid was elevated at 2.74 and fluids were given - UA is negative for infection, but shows positive ketones and trace RBCs - Patient took Dilaudid 4 mg oral 20 minutes prior to coming to the ER and is also on a fentanyl patch. - Dilaudid 1mg iv STAT in ER/ NS IVF/ Protonix 40mg iv - One hour later another dose of Dilaudid 1mg iv given for abdominal pain -Patient's vitals have been stable since he has been in the ER and he is afebrile. -Recommended admission to observation unit, but patient does not want to be admitted. Patient has a radiation treatment scheduled for 8 AM tomorrow morning at and he wants to attend that. At time of discharge patient's pain has resolved. Advised to use Dilaudid given to him by his pain management doctor, as instructed. Patient may use it every 6-8 hours as needed for tonight only, since patient has been titrated from every 3 hours to every 12 hours by his pain management doctor -Follow-up with oncology and PCP within the next 5 days. -Adequate hydration advised. Patient is dehydrated based on elevated lactic acid at 2.74 and ketones in the urine. -The patient was seen in the ED, and treated appropriately to presentation at a specific point in time. Patient is informed that there is a possibility that disease and illness can evolve and change in acuity rapidly or slowly after patient is discharged from the ER. Precautionary advice given to the patient for immediate return to ER if symptoms worsen or do not resolve, and to seek emergency care sooner rather than later. Pt also advised on the importance of PCP follow up and compliance with management and follow up plan with PCP and/or specialist, as this is part of the management plan. Pt verbally expressed und erstanding. Diagnostic Imaging Diagonstic Imaging: Xray, CT Plain Films/CT/US/NM/MRI: chest, abdomen Comments [facility]. [place], [place] NAME: KRISTINE PETIT [facility] REC#: [id number] PT STATUS: REG ER : [id number] PHYSICIAN: TONY COFFEY MD ADMIT DATE: 01/19/23/ER FS Draft Date of Exam:01/19/23 CHEST 1 VIEW AP/PA ONLY INDICATION: 67-year-old male with history of esophageal cancer presents with chest pain. COMPARISONS: CT chest 12/18/2022 FINDINGS: Limited view of the chest shows normal heart, pleura and diaphragms. No consolidations are seen. There is no effusion or pneumothorax. There is a right IJ Mediport with tip projected over the SVC. Soft tissues and bony thorax unremarkable. IMPRESSION: A portion of the right chest not visualized. Otherwise no acute cardiopulmonary changes. Dictated on workstation # [id number] Dict: 01/19/232128 Trans: 01/19/232133 [facility] [id number] Interpreted by: NIRU ISAACS MD Electronically signed by: Departure Impression Primary Impression: Intractable pain Additional Impressions: Metastasis from esophageal cancer Dehydration Disposition: 01 HOME, SELF-CARE Condition: Improved Departure-Patient Inst. Referrals: MARGARITA HU DO (PCP) Primary Care Physician Patient Instructions: Why Water Is Important to Health, Bone metastases, Dehydration, Adult ED, Stages of Cancer Add. Discharge Instructions: - Advised to use Dilaudid given to him by his pain management doctor, as instructed. Patient may use it every 6-8 hours as needed for tonight only, since patient has been titrated from every 3 hours to every 12 hours by his pain management doctor -Adequate hydration advised -Follow-up with oncology and PCP within the next 5 days. TONY COFFEY MD Jan 19, 2023 21:17
--- NOTE | 2023-01-19 21:34 | Diagnostic Imaging Report ---
INDICATION: 67-year-old male with history of esophageal cancer presents with chest pain. COMPARISONS: CT chest 12/18/2022 FINDINGS: Limited view of the chest shows normal heart, pleura and diaphragms. No consolidations are seen. There is no effusion or pneumothorax. There is a right IJ Mediport with tip projected over the SVC. Soft tissues and bony thorax unremarkable. IMPRESSION: A portion of the right chest not visualized. Otherwise no acute cardiopulmonary changes. Dictated by: Dictated on workstation # [id number]
[2023-01-19] MEDS ORDERED: IOHEXOL 350 MG/ML 100 ML (OMNIPAQUE 350) VIAL IV ONE (22:15)
[2023-01-19] MEDS ORDERED: HOLD METFORMIN - RECEIVED CONTRAST 20 ML VIAL IV SCH (22:15)
[2023-01-19] MEDS ORDERED: NS 100 ML (IVPB) BAG IV ONE (22:15)
[2023-01-19 22:18] LABS: BILIRUBIN,URINE NEGATIVE (NEGATIVE); CLARITY,URINE CLEAR; COLOR,URINE YELLOW; GLUCOSE, URINE (UA) NEGATIVE (NEGATIVE); KETONES,URINE 1+ (NEGATIVE); LEUKOCYTE ESTERASE ,URINE NEGATIVE (NEGATIVE); NITRITE,URINE NEGATIVE (NEGATIVE); PROTEIN,URINE NEGATIVE (NEGATIVE)
[2023-01-19 22:23] LABS: CARBON DIOXIDE 19 MMOL/L (21-32); CHLORIDE 101 MMOL/L (98-107); POTASSIUM 4.2 MMOL/L (3.6-5.0); SODIUM 135 MMOL/L (135-145)
[2023-01-19 22:24] LABS: ALANINE AMINOTRANSFERASE 34 U/L (0-55); ALBUMIN 2.6 GM/DL (3.2-4.5); ALKALINE PHOSPHATASE 162 U/L (40-136); BILIRUBIN,TOTAL 0.6 MG/DL (0.1-1.0); BUN/CREATININE RATIO 10; CALCIUM 8.8 MG/DL (8.5-10.1); CREATININE SERUM 0.78 MG/DL (0.60-1.30); GFR ESTIMATED 98; GLUCOSE 88 MG/DL (70-105); LIPASE 8 U/L (8-78); MAGNESIUM 1.7 MG/DL (1.6-2.4); TOTAL PROTEIN 5.4 GM/DL (6.4-8.2)
[2023-01-19 22:26] LABS: BACTERIA,URINE NEGATIVE /HPF; SQUAMOUS EPITHELIAL CELL,UR 0-2 /HPF
[2023-01-19 22:39] LABS: NEUTROPHILS % (AUTO) 84 % (42-75)
[2023-01-19 22:41] LABS: WHITE BLOOD COUNT 5.4 10^3/uL (4.3-11.0)
[2023-01-19] MEDS ORDERED: HEParin (CENTRAL IV FLUSH) 500 UNIT/5 ML SYR IV ONE (23:45)
[2023-01-19] MEDS ORDERED: HEParin (CENTRAL IV FLUSH) 500 UNIT/5 ML SYR ONE (23:48)
--- NOTE | 2023-01-20 05:32 | Diagnostic Imaging Report ---
PROCEDURE: CT abdomen and pelvis with contrast. TECHNIQUE: Multiple contiguous axial images were obtained through the abdomen and pelvis after administration of intravenous contrast. Auto Exposure Controls were utilized during the CT exam to meet ALARA standards for radiation dose reduction. All CT scans use one or more of the following dose optimizing techniques: automated exposure control, MA and/or KvP adjustment based on patient size and exam type or iterative reconstruction. INDICATION: Abdominal pain COMPARISON: 12/18/2022 FINDINGS: The visualized lung bases are clear. Innumerable hypodense hepatic masses are again identified. These appear increased in size and number since the prior examination. In particular, hypodensity within the dome of the liver which did measure 2.6 cm, now measures 3.9 cm. These masses involve both the right and left hepatic lobes. The main portal vein is patent. The spleen is unremarkable. The adrenal glands are unremarkable. The pancreas is unremarkable. The gallbladder is unremarkable. The kidneys are unremarkable. Mild vascular calcifications without aneurysmal dilatation of the abdominal aorta. Gastrohepatic lymph nodes appear more prominent than the prior examination. The appendix is unremarkable. Fat-containing bilateral inguinal hernias, small in size. The urinary bladder is unremarkable. Mild colonic diverticulosis without CT evidence of diverticulitis. No bowel obstruction or pneumatosis. Interval postsurgical changes involving the left femur are identified. A gamma nail at this location is partially visualized transfixing a pathologic femoral fracture. Stable lucent lesion within the right aspect of the pubic symphysis. Soft tissue lucent lesion within the right aspect of the sacrum is again seen. Multiple additional osseous lucencies are again identified throughout the osseous structures, particularly within the spine and pelvis. Scattered osseous degenerative changes. Small amount of free fluid throughout the abdomen and pelvis. No free air. IMPRESSION: Findings consistent with worsening metastatic disease. In particular, extensive hepatic metastatic disease has worsened since the prior examination. Significant osseous metastatic disease is also again identified. Interval postsurgical changes involving the pathologic fracture within the proximal left femur. Colonic diverticulosis without CT evidence of diverticulitis. Additional findings as described above. Agree with preliminary interpretation. Dictated by: Dictated on workstation # [id number]
[2023-01-20 09:14] LABS: NEUTROPHILS # (AUTO) 4.5 X 10^3 (1.8-7.8)
== END 2023-01-20 00:24 | disposition home or self-care (01) ==
LOC: EDUNIT# 20:48 → ER FS 20:50
DX: C15.9 Malignant neoplasm of esophagus, unspecified (principal); C78.7 Secondary malignant neoplasm of liver and intrahepatic bile duct; C79.89 Secondary malignant neoplasm of other specified sites; R10.9 Unspecified abdominal pain; E86.0 Dehydration; G47.30 Sleep apnea, unspecified; Z99.89 Dependence on other enabling machines and devices
CPT/HCPCS: 36415; 71045; 74177; 80053; 81000; 83605; 83690; 83735; 84484; 87040; Q9967

== ENCOUNTER 2023-01-24 07:59 | Outpatient (RCR) | payer OTHER, MEDICARE ==
[2022-12-17 10:15] VITALS: BP 116/81
== END 2023-02-03 | disposition home or self-care (01) ==
LOC: ONC 07:59
PROVIDERS: ATTEND Internal Medicine Hematology & Oncology
DX: Z51.0 Encounter for antineoplastic radiation therapy (principal); C16.0 Malignant neoplasm of cardia; C79.51 Secondary malignant neoplasm of bone; C78.7 Secondary malignant neoplasm of liver and intrahepatic bile duct; E78.2 Mixed hyperlipidemia; I25.10 Atherosclerotic heart disease of native coronary artery without angina pectoris; I50.22 Chronic systolic (congestive) heart failure; E66.9 Obesity, unspecified; K21.9 Gastro-esophageal reflux disease without esophagitis
CPT/HCPCS: 77280; 77290; 77295; 77300; 77334; 77336; 77417